=== PATIENT | female | born 1965 | race Caucasian/White ===

== ENCOUNTER 2017-03-29 01:39 | Emergency (ER) | payer OTHER ==
[2017-03-29 02:42] VITALS: BMI 27.8
--- NOTE | 2017-03-29 03:07 | PDOC ---
History of Present Illness - General History Source: Patient Exam Limitations: No Limitations - History of Present Illness Initial Comments: 03/29/17 03:14 The patient is a 51 year old female with a significant PMH of diabetes (on insulin & oral-med) who presents to the emergency department with 1 day of dizziness and blurred vision. The patient reports she is concerned that her blood sugar may be elevated. The patient denies any other associated complaints. The patient denies chest pain, shortness of breath, headache. Denies fever, chills, nausea, vomit, diarrhea and constipation. Denies dysuria, frequency, urgency and hematuria. Allergies: Latex Past surgical history: Orthopedic right elbow surgery. Social history: No reported toxic habits. PCP: Dr. Gardner <Sherman Lam - Last Filed: 03/29/17 03:14> - General History Source: Patient <JoeyJuan munoz - Last Filed: 03/29/17 19:24> - General Chief Complaint: Blood Sugar Problem Stated Complaint: BLOOD SUGAR PROBLEM Time Seen by Provider: 03/29/17 03:06 Past History <Sherman Lam - Last Filed: 03/29/17 03:14> - Past Medical History Anemia: No Asthma: No Cancer: No Cardiac Disorders: No CVA: No COPD: No CHF: No Dementia: No Diabetes: Yes GI Disorders: No Disorders: Yes (KIDNEY STONES) HTN: Yes Hypercholesterolemia: Yes Liver Disease: No Seizures: No Thyroid Disease: No - Surgical History Abdominal Surgery: No Appendectomy: No Cardiac Surgery: No Cholecystectomy: No Lung Surgery: No Neurologic Surgery: No Orthopedic Surgery: Yes (elbow sx - right arthro) - Immunization History Immunization Up to Date: Yes - Suicide/Smoking/Psychosocial Hx Smoking History: Never smoked Have you smoked in the past 12 months: No Hx Alcohol Use: No Drug/Substance Use Hx: No Substance Use Type: None Hx Substance Use Treatment: No <Juan Jensen - Last Filed: 03/29/17 19:24> - Past Medical History Allergies/Adverse Reactions: Allergies Allergy/AdvReac Type Severity Reaction Status Date / Time latex Allergy Intermediate Rash,SWELLI Verified 03/29/17 02:22 NG Home Medications: Ambulatory Orders Ergocalciferol (Vitamin D2) [Vitamin D] 50,000 unit PO WEEKLY 01/07/15 Gabapentin 600 mg PO TID 01/07/15 Insulin (Novolog) [Novolog -] 0 units SQ TID 01/07/15 Insulin Glargine,Hum.rec.anlog [Lantus Solostar PEN -] 80 units SQ HS 01/07/15 Lisinopril 10 mg PO DAILY 01/07/15 Multivitamins [Multivit ([facility] Formulary)] 1 tab PO DAILY 01/07/15 Fenofibrate Nanocrystallized [Tricor] 145 mg PO DAILY 02/29/16 Rosuvastatin Calcium 40 mg PO DAILY 03/01/16 Cyclobenzaprine HCl [Flexeril 10 mg] 10 mg PO BID PRN 03/29/17 Glimepiride - 4 mg PO ASDIR 03/29/17 Meloxicam [Mobic] 15 mg PO DAILY 03/29/17 Pramipexole Di-HCl [Mirapex] 0.125 mg PO DAILY 03/29/17 Sulfamethoxazole/Trimethoprim [Bactrim Ds -] 1 tab PO BID 03/29/17 Tizanidine HCl [Zanaflex (Nf)] 4 mg PO BID 03/29/17 Review of Systems - Review of Systems Able to Perform ROS?: Yes Comments:: 03/29/17 03:14 CONSTITUTIONAL: Absent: fever, chills, diaphoresis, generalized weakness, malaise, loss of appetite HEENT: (+) Blurred vision. Absent: rhinorrhea, nasal congestion, throat pain, throat swelling, difficulty swallowing, mouth swelling, ear pain, eye pain CARDIOVASCULAR: Absent: chest pain, syncope, palpitations, irregular heart rate, lightheadedness , peripheral edema RESPIRATORY: Absent: cough, shortness of breath, dyspnea with exertion, orthopnea, wheezing, stridor, hemoptysis GASTROINTESTINAL: Absent: abdominal pain, abdominal distension, nausea, vomiting, diarrhea, constipation, melena, hematochezia GENITOURINARY: Absent: dysuria, frequency, urgency, hesitancy, hematuria, flank pain, genital pain MUSCULOSKELETAL: Absent: myalgia, arthralgia, joint swelling SKIN: Absent: rash, itching, pallor HEMATOLOGIC/IMMUNOLOGIC: Absent: easy bleeding, easy bruising, lymphadenopathy, frequent infections ENDOCRINE: Absent: unexplained weight gain, unexplained weight loss, heat intolerance, cold intolerance NEUROLOGIC: (+) Dizziness. Absent: headache, focal weakness or paresthesias, unsteady gait, seizure, mental status changes, bladder or bowel incontinence PSYCHIATRIC: Absent: anxiety, depression, suicidal or homicidal ideation, hallucinations. <Sherman Lam - Last Filed: 03/29/17 03:14> *Physical Exam - Vital Signs Last Vital Signs Temp Pulse Resp BP Pulse Ox 98 F 92 H 18 92/63 99 03/29/17 02:10 03/29/17 02:10 03/29/17 02:10 03/29/17 02:10 03/29/17 02:10 - Physical Exam Comments: 03/29/17 03:14 GENERAL: Well developed, well nourished. Awake and alert. No acute distress. HEENT: Normocephalic, atraumatic. PERRLA, EOMI. No conjunctival pallor. Sclera are non- icteric. Moist mucous membranes. Oropharynx is clear. NECK: Supple. Full ROM. No JVD. Carotid pulses 2+ and symmetric, without bruits. No thyromegaly. No lymphadenopathy. CARDIOVASCULAR: Regular rate and rhythm. No murmurs, rubs, or gallops. Distal pulses are 2+ and symmetric. PULMONARY: No evidence of respiratory distress. Lungs clear to auscultation bilaterally. No wheezing, rales or rhonchi. ABDOMINAL: Soft. Non-tender. Non-distended. No rebound or guarding. No organomegaly. Normoactive bowel sounds. MUSCULOSKELETAL Normal range of motion at all joints. No bony deformities or tenderness. No CVA tenderness. EXTREMITIES: No cyanosis. No clubbing. No edema. No calf tenderness. SKIN: Warm and dry. Normal capillary refill. No rashes. No jaundice. NEUROLOGICAL: Alert, awake, appropriate. Cranial nerves 2-12 intact. No deficits to light touch and temperature in face, upper extremities and lower extremities. No motor deficits in the in face, upper extremities and lower extremities. Normoreflexic in the upper and lower extremities. Normal speech. Toes are downgoing bilaterally. Gait is normal without ataxia. PSYCHIATRIC: Cooperative. Good eye contact. Appropriate mood and affect. <Sherman Lam - Last Filed: 03/29/17 03:14> - Vital Signs Last Vital Signs Temp Pulse Resp BP Pulse Ox 98 F 92 H 18 92/63 99 03/29/17 02:10 03/29/17 02:10 03/29/17 02:10 03/29/17 02:10 03/29/17 02:10 <Juan Jensen - Last Filed: 03/29/17 19:24> ED Treatment Course - LABORATORY CBC & Chemistry Diagram: 03/29/17 03:00 03/29/17 05:00 <Juan Jensen - Last Filed: 03/29/17 19:24> Medical Decision Making - Medical Decision Making 03/29/17 19:24 Dr. Jensen: The scribe's documentation has been prepared under my direction and personally reviewed by me in its entirery. I confirm that the note above accurately reflects all work, treatment, procedures, and medical decision making performed by me. <Juan Jensen - Last Filed: 03/29/17 19:24> *DC/Admit/Observation/Transfer - Attestations Scribe Attestion: 03/29/17 03:15 Documentation prepared by Sherman Lam, acting as medical surgical tech for Juan Jensen DO. <Sherman Lam - Last Filed: 03/29/17 03:14> - Discharge Dispostion Admit: No <Juan Jensen - Last Filed: 03/29/17 19:24> Diagnosis at time of Disposition: Hyperglycemia - Discharge Dispostion Disposition: HOME Condition at time of disposition: Stable - Referrals Referrals: Nawaf Gardner [Primary Care Provider] - - Patient Instructions Printed Discharge Instructions: DI for Hyperglycemia -- Adult Additional Instructions: Follow up with your primary care doctor this week. You must have your blood sugar medications adjusted. If you continue to have poorly controlled blood sugar, you may suffer serious illness, disability, or even . If you experience persistent elevated sugars, abdominal pain, vomiting, or any other concerning symptoms, return to the ER immediately.
[2017-03-29] MEDS ORDERED: SODIUM CHLORIDE 1,000 ML IV STA (03:08)
[2017-03-29 03:18] LABS: BASOPHIL 0.8 % (0-2.0); EOSINOPHIL 1.6 % (0-4.5); MCH 29.2 pg (25.7-33.7); MCHC 33.9 g/dl (32.0-36.0); MEAN CELL VOLUME 86.1 fl (80-96); NEUTROPHILS 49.4 % (42.8-82.8); PLATELET COUNT 189 K/MM3 (134-434); RDW 12.6 % (11.6-15.6); WHITE BLOOD COUNT 5.5 K/mm3 (4.0-10.0)
[2017-03-29 03:31] LABS: INR 0.99 (0.82-1.09); PROTHROMBIN TIME (PATIENT) 11.2 SEC (9.98-11.88)
[2017-03-29 03:52] LABS: ACETONE SERUM NEGATIVE (NEGATIVE)
[2017-03-29 03:56] LABS: ALBUMIN 3.5 g/dl (3.4-5.0); ANION GAP 7 (8-16); BILIRUBIN,TOTAL 0.3 mg/dL (0.2-1.0); CALCIUM 8.9 mg/dL (8.5-10.1); CO2 27 mmol/L (21-32); CREATININE 1.2 mg/dL (0.55-1.02); SGPT/ALT 30 U/L (12-78); TOT PROT 6.7 g/dl (6.4-8.2)
[2017-03-29 03:59] LABS: ALK PHOS 114 U/L (45-117); CPK 91 IU/L (26-192); TROPONIN I < 0.02 ng/ml (0.00-0.05)
[2017-03-29 04:02] LABS: MAGNESIUM 1.6 mg/dL (1.8-2.4); SGOT/AST 21 U/L (15-37)
[2017-03-29 04:03] LABS: GLUCOSE,RANDOM 556 mg/dL (74-106)
[2017-03-29 04:48] LABS: URINE APPEARANCE SLCLOUDY; URINE BILIRUBIN NEGATIVE (NEGATIVE); URINE BLOOD NEGATIVE (NEGATIVE); URINE COLOR STRAW; URINE GLUCOSE (UA) 3+ (NEGATIVE); URINE KETONE NEGATIVE (NEGATIVE); URINE NITRITE NEGATIVE (NEGATIVE); URINE PROTEIN NEGATIVE (NEGATIVE); URINE UROBILINOGEN NEGATIVE mg/dL (0.2-1.0)
[2017-03-29 05:40] LABS: ANION GAP 8 (8-16); CALCIUM 8.6 mg/dL (8.5-10.1); CO2 26 mmol/L (21-32)
[2017-03-29 05:47] LABS: GLUCOSE,RANDOM 446 mg/dL (74-106)
[2017-03-29] MEDS ORDERED: INSULIN REGULAR HUMAN 100 UNITS/ML *VIAL IVPUSH ONE (06:14)
[2017-03-29] MEDS ORDERED: INSULIN REGULAR HUMAN 100 UNITS/ML *VIAL ONE (06:20)
[2017-03-29 07:40] VITALS: BP 101/60; PULSE 83; TEMP 98.6
--- NOTE | 2017-03-29 09:04 | PDOC ---
*Physical Exam - Vital Signs Last Vital Signs Temp Pulse Resp BP Pulse Ox 98.6 F 83 16 101/60 98 03/29/17 07:39 03/29/17 07:39 03/29/17 07:39 03/29/17 07:39 03/29/17 07:39 ED Treatment Course - LABORATORY CBC & Chemistry Diagram: 03/29/17 03:00 03/29/17 05:00 - ADDITIONAL ORDERS Additional order review: Laboratory Results 03/29/17 03/29/17 03/29/17 05:00 04:38 03:00 PT with INR INR Sodium 131 L 127 L Potassium 4.5 5.2 H D Chloride 97 L 93 L Carbon Dioxide 26 27 Anion Gap 8 7 L BUN 17 19 H D Creatinine 1.0 1.2 H D Creat Clearance w eGFR 46.99 Random Glucose 446 H* 556 H* D Calcium 8.6 8.9 Magnesium 1.6 L Total Bilirubin 0.3 D AST 21 D ALT 30 Alkaline Phosphatase 114 Creatine Kinase 91 Troponin I < 0.02 Total Protein 6.7 Albumin 3.5 Lipase 484 H Urine Color Straw Urine Appearance Slcloudy Urine pH 5.0 Ur Specific [place] 1.026 Urine Protein Negative Urine Glucose (UA) 3+ H Urine Ketones Negative Urine Blood Negative Urine Nitrite Negative Urine Bilirubin Negative Urine Urobilinogen Negative Acetone, Qual Negative L 03/29/17 03:00 PT with INR 11.20 INR 0.99 Sodium Potassium Chloride Carbon Dioxide Anion Gap BUN Creatinine Creat Clearance w eGFR Random Glucose Calcium Magnesium Total Bilirubin AST ALT Alkaline Phosphatase Creatine Kinase Troponin I Total Protein Albumin Lipase Urine Color Urine Appearance Urine pH Ur Specific [place] Urine Protein Urine Glucose (UA) Urine Ketones Urine Blood Urine Nitrite Urine Bilirubin Urine Urobilinogen Acetone, Qual 03/29/17 03:00 RBC 4.37 MCV 86.1 MCHC 33.9 RDW 12.6 MPV 11.0 Neutrophils % 49.4 Lymphocytes % 41.4 H Monocytes % 6.8 Eosinophils % 1.6 D Basophils % 0.8 - Medications Given in the ED: ED Medications Discontinued Medications Generic Name Dose Route Start Last Admin Trade Name Freq PRN Reason Stop Dose Admin Sodium Chloride 1,000 mls @ 1,000 mls/hr 03/29/17 03:08 03/29/17 03:00 Normal Saline - IV 03/29/17 04:07 1,000 mls/hr ASDIR STA Administration Insulin Human Regular 6 units 03/29/17 06:14 03/29/17 06:23 Novolin R Vial *For Ivpush Or Iv Drip Only* IVPUSH 03/29/17 06:15 6 units ONCE ONE Administration Medical Decision Making - Medical Decision Making 03/29/17 08:59 Sign out taken from Dr. Jensne at 7AM. 51 F with IDDM presenting with elevated blood sugar. Pt reports compliance with meds. Was given IVF and insulin in ER with improvement in sugar to <200. Pt also with elevated lipase. CTAP was normal. Pt denies abdominal pain. Abdominal exam is nontender. Pt has f/u with PMD next week. Will need to adjust her antihyperglycemics and insulin. Pt clinically well appearing, asymptomatic, with normal vitals and improved fingerstick. Stable for DC. *DC/Admit/Observation/Transfer Diagnosis at time of Disposition: Hyperglycemia - Discharge Dispostion Disposition: HOME - Referrals Referrals: Nawaf Gardner [Primary Care Provider] - - Patient Instructions Printed Discharge Instructions: DI for Hyperglycemia -- Adult Additional Instructions: Follow up with your primary care doctor this week. You must have your blood sugar medications adjusted. If you continue to have poorly controlled blood sugar, you may suffer serious illness, disability, or even . If you experience persistent elevated sugars, abdominal pain, vomiting, or any other concerning symptoms, return to the ER immediately. - Post Discharge Activity - Attestations Physician Attestion: 03/29/17 09:03 I, Dr. Marquise Hayes MD, attest that this document has been prepared under my direction and personally reviewed by me in its entirety. I further attest, that it accurately reflects all work, treatment, procedures and medical decision -making performed by me.
[2017-03-29 10:46] LABS: URINE BACTERIA FEW /hpf (NEGATIVE); URINE LEUK ESTERASE TRACE (NEGATIVE); URINE RBC 0-3 /hpf (0-3); URINE WBC 0-3 /hpf (3-5)
== END 2017-03-29 10:38 | disposition home or self-care (01) ==
LOC: JER 01:39
PROC: 3E033VG Introduction of Insulin into Peripheral Vein, Percutaneous Approach (ICD-10-PCS; principal; 2017-03-29)
DX: E11.65 Type 2 diabetes mellitus with hyperglycemia (principal); Z79.4 Long term (current) use of insulin; Z79.84 Long term (current) use of oral hypoglycemic drugs; I10 Essential (primary) hypertension; E78.00 Pure hypercholesterolemia, unspecified; Z87.442 Personal history of urinary calculi
CPT/HCPCS: 36415; 74177-TC; 80048; 80053; 81003; 81015; 82009; 82550; 83690; 83735; 84484; 85025; 85610; 99285-25

== ENCOUNTER 2018-06-21 14:21 | Emergency (ER) | payer OTHER ==
[2018-06-21 16:11] VITALS: BMI 27.6
--- NOTE | 2018-06-21 16:11 | PDOC ---
History of Present Illness - General Stated Complaint: PAIN Time Seen by Provider: 06/21/18 15:56 History Source: Patient - History of Present Illness Timing/Duration: other Past History - Past Medical History Allergies/Adverse Reactions: Allergies Allergy/AdvReac Type Severity Reaction Status Date / Time latex Allergy Intermediate RashMIKE Verified 03/29/17 02:22 NG Home Medications: Ambulatory Orders Ergocalciferol (Vitamin D2) [Vitamin D] 50,000 unit PO WEEKLY 01/07/15 Gabapentin 600 mg PO TID 01/07/15 Insulin (Novolog) [Novolog -] 0 units SQ TID 01/07/15 Insulin Glargine,Hum.rec.anlog [Lantus Solostar PEN -] 80 units SQ HS 01/07/15 Lisinopril 10 mg PO DAILY 01/07/15 Multivitamins [Multivit ([facility] Formul[facility])] 1 tab PO DAILY 01/07/15 Fenofibrate Nanocrystallized [Tricor] 145 mg PO DAILY 02/29/16 Rosuvastatin Calcium 40 mg PO DAILY 03/01/16 Cyclobenzaprine HCl [Flexeril 10 mg] 10 mg PO BID PRN 03/29/17 Glimepiride - 4 mg PO ASDIR 03/29/17 Meloxicam [Mobic] 15 mg PO DAILY 03/29/17 Pramipexole Di-HCl [Mirapex] 0.125 mg PO DAILY 03/29/17 Sulfamethoxazole/Trimethoprim [Bactrim Ds -] 1 tab PO BID 03/29/17 Tizanidine HCl [Zanaflex (Nf)] 4 mg PO BID 03/29/17 Ondansetron HCl [Zofran] 4 mg PO Q8H #6 tablet 06/21/18 Anemia: No Asthma: No Cancer: No Cardiac Disorders: No CVA: No COPD: No CHF: No Dementia: No Diabetes: Yes GI Disorders: No Disorders: Yes (KIDNEY STONES) HTN: Yes Hypercholesterolemia: Yes Liver Disease: No Seizures: No Thyroid Disease: No - Surgical History Abdominal Surgery: No Appendectomy: No Cardiac Surgery: No Cholecystectomy: No Lung Surgery: No Neurologic Surgery: No Orthopedic Surgery: Yes (elbow sx - right arthro) - Immunization History Immunization Up to Date: Yes - Suicide/Smoking/Psychosocial Hx Smoking History: Never smoked Have you smoked in the past 12 months: No Hx Alcohol Use: No Drug/Substance Use Hx: No Substance Use Type: None Hx Substance Use Treatment: No Review of Systems - Review of Systems Constitutional: No: Chills, Fever ABD/GI: Yes: Diarrhea, Nausea, Vomiting. No: Poor Fluid Intake : No: Dysuria *Physical Exam - Physical Exam General Appearance: Yes: Appropriately Dressed. No: Apparent Distress HEENT: positive: Normal Voice Neck: positive: Supple Respiratory/Chest: negative: Respiratory Distress Gastrointestinal/Abdominal: positive: Soft. negative: Tender Integumentary: positive: Dry, Warm Neurologic: positive: Fully Oriented, Alert, Normal Mood/Affect ED Treatment Course - LABORATORY CBC & Chemistry Diagram: 06/21/18 16:28 06/21/18 16:28 Medical Decision Making - Medical Decision Making 06/21/18 16:08 53 yo F, h/o HLD, HTN, IDDM, here w/ n/v. Pt states since last night, has had ~4 -5 e/o NB, NB vomitus w/ ~10 e/o NB, watery diarrhea. No abd pain, body aches, f /c. No sick contact. recent travel, unusual food or abx use. Feels dizzy now See exam Possible gastroenteritis No RF for serious dysentery Stable and well mervat w/ benign abd -IVF -zofran -labs -reassess 06/21/18 19:10 Signed out to ER resident pending chemistry and reassessment *DC/Admit/Observation/Transfer Diagnosis at time of Disposition: Diarrhea Qualifiers: Diarrhea type: unspecified type Qualified Code(s): R19.7 - Diarrhea, unspecified Nausea and vomiting Qualifiers: Vomiting type: unspecified Vomiting Intractability: non-intractable Qualified Code(s): R11.2 - Nausea with vomiting, unspecified - Discharge Dispostion Condition at time of disposition: Improved - Prescriptions Prescriptions: Ondansetron HCl [Zofran] 4 mg PO Q8H #6 tablet - Referrals Referrals: Antonia Kirkland [Primary Care Provider] - - Patient Instructions Printed Discharge Instructions: Viral Gastroenteritis Additional Instructions: Lo ms probable es que tenga mario gastroenteritis viral que seguir zimmer curso hasta que l mejore. [place] y [place] muchos lquidos para prevenir la deshidratacin. [place] dara segn sea necesario para las nuseas. Si los sntomas empeoran, vuelva a la robert de emergencias; de lo contrario, consulte zimmer PMD segn sea necesario - Post Discharge Activity
[2018-06-21] MEDS ORDERED: SODIUM CHLORIDE 1,000 ML IV STA (16:12)
[2018-06-21] MEDS ORDERED: ONDANSETRON 4 MG/2 ML VIAL IVPUSH ONE (16:12)
[2018-06-21] MEDS ORDERED: ONDANSETRON 4 MG/2 ML VIAL ONE (16:36)
[2018-06-21 16:48] LABS: URINE APPEARANCE CLEAR; URINE BILIRUBIN NEGATIVE (<2.0 mg/dL); URINE COLOR LTYELLOW; URINE GLUCOSE (UA) 3+ (NEGATIVE); URINE KETONE 1+ (NEGATIVE); URINE LEUK ESTERASE NEGATIVE (NEGATIVE); URINE NITRITE NEGATIVE (NEGATIVE); URINE PROTEIN NEGATIVE (NEGATIVE); URINE UROBILINOGEN NEGATIVE mg/dL (0.2-1.0)
[2018-06-21 17:54] LABS: BASO % 0.5 % (0-2.0); EOS % 0.1 % (0-4.5); HEMATOCRIT 41.9 % (32.4-45.2); MCH 31.7 pg (25.7-33.7); MCHC 35.8 g/dl (32.0-36.0); MEAN CELL VOLUME 88.6 fl (80-96); MEAN PLT VOLUME 11.4 fl (7.5-11.1); MONO % 3.2 % (3.8-10.2); NEUT % 75.2 % (42.8-82.8); PLATELET COUNT 211 K/MM3 (134-434); RBC 4.73 M/mm3 (3.60-5.2); RDW 12.5 % (11.6-15.6); WHITE BLOOD COUNT 8.6 K/mm3 (4.0-10.0)
--- NOTE | 2018-06-21 19:34 | PDOC ---
*Physical Exam - Vital Signs Last Vital Signs Temp Pulse Resp BP Pulse Ox 97.8 F 90 17 124/77 98 06/21/18 16:07 06/21/18 16:07 06/21/18 16:07 06/21/18 16:07 06/21/18 16:07 - Physical Exam Comments: 06/21/18 19:33 Received sign out from [facility] [place] ED Treatment Course - LABORATORY CBC & Chemistry Diagram: 06/21/18 16:28 06/21/18 16:28 - ADDITIONAL ORDERS Additional order review: Laboratory Results 06/21/18 06/21/18 16:32 16:28 Lipase Cancelled Urine Color Ltyellow Urine Appearance Clear Urine pH 8.0 D Ur Specific [place] 1.031 Urine Protein Negative Urine Glucose (UA) 3+ H D Urine Ketones 1+ H Urine Blood Negative Urine Nitrite Negative Urine Bilirubin Negative Urine Urobilinogen Negative Ur Leukocyte Esterase Negative 06/21/18 16:28 RBC 4.73 MCV 88.6 MCHC 35.8 RDW 12.5 MPV 11.4 H Neutrophils % 75.2 D Lymphocytes % 21.0 D Monocytes % 3.2 L Eosinophils % 0.1 D Basophils % 0.5 - Medications Given in the ED: ED Medications Discontinued Medications Generic Name Dose Route Start Last Admin Trade Name Freq PRN Reason Stop Dose Admin Sodium Chloride 1,000 mls @ 1,000 mls/hr 06/21/18 16:12 06/21/18 16:43 Normal Saline - IV 06/21/18 17:11 1,000 mls/hr ASDIR STA Administration Ondansetron HCl 4 mg 06/21/18 16:12 06/21/18 16:43 Zofran Injection IVPUSH 06/21/18 16:13 4 mg ONCE ONE Administration Medical Decision Making - Medical Decision Making Patient was reassessed. She had resolution of abdominal symptoms and no diarrhea in the department. the patient was able to tolerate PO solids and liquids. the patient was discharged without complications and able to ambulate on her own volition. labs were within normal limits except for an elevated glucose level. Advised her to see her PMD within 3 days for follow up care and management to evaluate anti-glycemic regiment. I discussed the physical exam findings, ancillary test results, and final diagnoses with the patient. I answered all of the patients questions to their satisfaction. The patient was satisfied with the care received and felt comfortable with the discussed discharge and treatment plan and accepted it. They agreed to follow up with their primary medical physical physician within 24 -72 hours after discharge for follow up care and management. Dispo: Discharge *DC/Admit/Observation/Transfer Diagnosis at time of Disposition: Diarrhea Qualifiers: Diarrhea type: unspecified type Qualified Code(s): R19.7 - Diarrhea, unspecified Nausea and vomiting Qualifiers: Vomiting type: unspecified Vomiting Intractability: non-intractable Qualified Code(s): R11.2 - Nausea with vomiting, unspecified - Discharge Dispostion Disposition: HOME Condition at time of disposition: Improved Decision to Admit order: No - Prescriptions Prescriptions: Ondansetron HCl [Zofran] 4 mg PO Q8H #6 tablet - Referrals Referrals: Antonia Kirkland [Primary Care Provider] - - Patient Instructions Printed Discharge Instructions: Viral Gastroenteritis Additional Instructions: Lo ms probable es que tenga mario gastroenteritis viral que seguir zimmer curso hasta que l mejore. [place] muchos lquidos para prevenir la deshidratacin. [place] dara segn sea necesario para las nuseas. Si los sntomas empeoran, vuelva a la robert de emergencias; de lo contrario, consulte zimmer PMD segn sea necesario - Post Discharge Activity
[2018-06-21 20:08] LABS: ALBUMIN 4.2 g/dl (3.4-5.0); ALK PHOS 100 U/L (45-117); ANION GAP 10 MMOL/L (8-16); BILIRUBIN,TOTAL 0.4 mg/dL (0.2-1); BLOOD UREA NITROGEN 9 mg/dL (7-18); CALCIUM 9.5 mg/dL (8.5-10.1); CHLORIDE 99 mmol/L (98-107); CO2 28 mmol/L (21-32); CREATININE 0.8 mg/dL (0.55-1.3); LIPASE 221 U/L (73-393); POTASSIUM 4.3 mmol/L (3.5-5.1); SGOT/AST 18 U/L (15-37); SGPT/ALT 35 U/L (13-61); SODIUM 137 mmol/L (136-145); TOT PROT 7.5 g/dl (6.4-8.2)
[2018-06-21 20:11] LABS: GLUCOSE,RANDOM 303 mg/dL (74-106)
[2018-06-21 20:59] VITALS: BP 133/82; PULSE 88; TEMP 98
== END 2018-06-21 21:51 | disposition home or self-care (01) ==
LOC: JER 14:21
PROC: 3E033GC Introduction of Other Therapeutic Substance into Peripheral Vein, Percutaneous Approach (ICD-10-PCS; principal; 2018-06-21)
DX: A08.4 Viral intestinal infection, unspecified (principal); B97.89 Other viral agents as the cause of diseases classified elsewhere; I10 Essential (primary) hypertension; E78.00 Pure hypercholesterolemia, unspecified; E11.9 Type 2 diabetes mellitus without complications; Z79.4 Long term (current) use of insulin; Z87.442 Personal history of urinary calculi
CPT/HCPCS: 36415; 80053; 81003; 83690; 85025; 87804; 96374; 99282-25; J7030

== ENCOUNTER 2018-08-29 10:15 | Observation (INO) | payer OTHER ==
[2018-08-29 10:39] VITALS: BMI 27.3
--- NOTE | 2018-08-29 11:25 | PDOC ---
History of Present Illness - General Chief Complaint: Lightheaded Stated Complaint: NECK / BODY PAIN Time Seen by Provider: 08/29/18 10:52 History Source: Patient, Pharmacy Associate Used, Old Records Exam Limitations: Language Barrier - History of Present Illness Initial Comments: HPI: 53 y/o female presenting to [facility] ER with three complaints. States she developed left sided chest pain while at the gym this morning. Denies radiation to arms, neck or back. No change with inspiration or exertion. States she felt a little short of breath yesterday but not today. Complaining of episodes of dizziness for the past four days. Each lasts a few minutes in duration. Are worse when moving from seated to standing position. No change with opening or closing eyes. No change with turning head to right or left. States it feels as though the room is spinning. Denies h/o of similar. Denies syncope but states she tripped last night while walking to the bathroom. Not feeling dizzy at time of interview. Complaining of posterior neck pain for the past week. Pain is worse when turning head to left side. Has not tried any over the counter medication. Pt states all symptoms have not prevented her from exercising at the gym every day this week. Pt is mostly Nigerian speaking. [employer] telephone delivery mgr used for translation. PCP: Stopped following with Dr. Kirkland Websphere Architect: Dr. Marquez Medical Hx: - HTN - Diabetic, manages with insulin and metformin, states BGL was >300 - HLD Past History - Past Medical History Allergies/Adverse Reactions: Allergies Allergy/AdvReac Type Severity Reaction Status Date / Time latex Allergy Intermediate Rash,SWELLI Verified 03/29/17 02:22 NG Home Medications: Ambulatory Orders Ergocalciferol (Vitamin D2) [Vitamin D] 50,000 unit PO WEEKLY 01/07/15 Gabapentin 600 mg PO TID 01/07/15 Insulin (Novolog) [Novolog -] 0 units SQ TID 01/07/15 Insulin Glargine,Hum.rec.anlog [Lantus Solostar PEN -] 80 units SQ HS 01/07/15 Lisinopril 10 mg PO DAILY 01/07/15 Multivitamins [Multivit ([facility] Formulary)] 1 tab PO DAILY 01/07/15 Fenofibrate Nanocrystallized [Tricor] 145 mg PO DAILY 02/29/16 Rosuvastatin Calcium 40 mg PO DAILY 03/01/16 Cyclobenzaprine HCl [Flexeril 10 mg] 10 mg PO BID PRN 03/29/17 Glimepiride - 4 mg PO ASDIR 03/29/17 Meloxicam [Mobic] 15 mg PO DAILY 03/29/17 Pramipexole Di-HCl [Mirapex] 0.125 mg PO DAILY 03/29/17 Sulfamethoxazole/Trimethoprim [Bactrim Ds -] 1 tab PO BID 03/29/17 Tizanidine HCl [Zanaflex (Nf)] 4 mg PO BID 03/29/17 Ondansetron HCl [Zofran] 4 mg PO Q8H #6 tablet 06/21/18 Anemia: No Asthma: No Cancer: No Cardiac Disorders: No CVA: No COPD: No CHF: No Dementia: No Diabetes: Yes GI Disorders: No Disorders: Yes (KIDNEY STONES) HTN: Yes Hypercholesterolemia: Yes Liver Disease: No Seizures: No Thyroid Disease: No - Surgical History Abdominal Surgery: No Appendectomy: No Cardiac Surgery: No Cholecystectomy: No Lung Surgery: No Neurologic Surgery: No Orthopedic Surgery: Yes (elbow sx - right arthro) - Immunization History Immunization Up to Date: Yes - Suicide/Smoking/Psychosocial Hx Smoking History: Never smoked Have you smoked in the past 12 months: No Information on smoking cessation initiated: No Hx Alcohol Use: No Drug/Substance Use Hx: No Substance Use Type: None Hx Substance Use Treatment: No Review of Systems - Review of Systems Able to Perform ROS?: Yes Comments:: In addition to that documented in the HPI above, the additional ROS was obtained : Constitutional: Denies fevers or chills Head: Denies vision changes or change in hearing ENMT: Denies sore throat CV: Per HPI Resp: Denies acute SOB GI: Denies vomiting or diarrhea : Denies painful urination, increased urinary frequency, or hematuria MSK: Denies recent trauma Skin: Denies new rashes Neuro: Denies new numbness or tingling or weakness Endocrine: Denies polyuria Heme: Denies bleeding or bruising *Physical Exam - Vital Signs Last Vital Signs Temp Pulse Resp BP Pulse Ox 98.1 F 84 16 142/88 96 08/29/18 10:36 08/29/18 10:36 08/29/18 10:36 08/29/18 10:36 08/29/18 10:36 - Physical Exam Comments: Constitutional: Well-developed, well-nourished female in no acute distress or obvious discomfort. Found semi-fowlers in hospital bed. Alert and oriented x4. Answered all questions appropriately and completely. Speech was non-labored, non -pressured. Head: Normocephalic. No obvious external signs of trauma. Eyes: Pupils 4mm and PERRL bilaterally. EOMI. No vertical or horizontal nystagmus. Sclerae white. Conjunctiva moist and not injected. Ears: Hearing grossly intact. Nose: No nasal discharge. Throat: Oral cavity and pharynx normal. No inflammation, swelling, exudate, or lesions. Teeth and gingiva in good general condition. Uvula midline. No tongue deviation. Neck: Supple, trachea is midline. Diffuse tenderness to right side of neck without obvious bony deformities or overlying skin lesions. Cardiovascular / Chest: Regular rate and regular rhythm. No murmur, rubs, clicks, or gallops. Peripheral pulses: radial pulses full. No pretibial edema. Point tenderness to lower left sternal border; unchanged with left arm movement. Respiratory: Breathing unlabored. Equal chest rise and fall. Clear to auscultation bilaterally. No stridor, no wheezing, no rhonchi. Gastrointestinal: abdomen is soft, non-tender, non-distended. Neuro: Alert and oriented. Moving all four extremities spontaneously. No focal deficits. Cranial nerves intact. Sensation to all four extremities intact. Upper and lower extremities: proximal and distal strength 5/5. Community Health Nursing Director strength 5/ 5 - equal and symmetric. Plantar flexion and dorsiflexion 5/5. No nuchal rigidity. Intact rapid alternating movements and heel to saucedo. Normal test of skew. Gait: walked on heels. Skin: Warm, dry, and intact. No bruising, rashes, or other lesions. Psych: Affect: appropriate. Mood: normal. Heart Score/ECG Review - History History: Slightly suspicious - Electrocardiogram EKG: Non specific repolarization disturbance - Age Age: 45-65 - Risk Factors Risk Factors Heart Score: Yes Hx Hypercholesterolemia, Yes Hx Hypertension, Yes Hx Diabetes Based on the list above the patient has:: >/=3 risk factors or Hx atherosclerotic disease - Troponin Troponin: </= normal limit - Score Heart Score - Total: 4 ED Treatment Course - LABORATORY CBC & Chemistry Diagram: 08/29/18 12:07 08/29/18 11:26 Medical Decision Making - Medical Decision Making *Reviewed vital signs, nursing notes, and prior visit documentation (if available). 53 y/o female presenting for left sided nonradiating, nonpleuritic, reproducible chest pain x1 day, intermittent dizziness x4 days, and 1 week of posterior neck pain. Dizziness and neck pain did not prevent pt from normal activities. Afebrile. Vitals unremarkable for hypotension or tachycardia. Physical exam as described above. Gait abnormality reportedly normal per pt; suspect secondary to diabetic neuropathy. Suspect likely MSK chest pain given highly reproducible nature, however pt has risk factors including HTN, DM, and HLD. Suspect likely peripheral vertiginous BPPV given brief nature of episodes without acute findings on neurologic exam. Initial EKG revealed inverted T wave in lead III. No ST segment changes. No previous EKGs available for comparison. Initial troponin not elevated. CBC unremarkable for anemia. CMP unremarkable for significant electrolyte derangement. CXR unremarkable for acute cardiopulmonary findings or bony deformities. Will repeat troponin and EKG at three hours. Given heart score of 4 , will admit pt on observation status for DILSHAD. In person consultation with resident Dr. Zavala. Verbally appraised of the pt s HPI, ED course, and current plan of management. Will admit pt to telemetry on observational status for attending Dr. Hernández. Repeat EKG unchanged from first. Repeat troponin not elevated. *DC/Admit/Observation/Transfer Diagnosis at time of Disposition: Left-sided chest pain, Posterior neck pain, Dizziness, nonspecific, Hyperglycemia due to type 1 diabetes mellitus, Hyperglycemia, Nonspecific ST-T wave electrocardiographic changes - Discharge Dispostion Condition at time of disposition: Stable Decision to Admit order: Yes - Referrals - Patient Instructions - Post Discharge Activity
[2018-08-29] MEDS ORDERED: ACETAMINOPHEN 500 MG TABLET (FP) PO ONE (11:31)
--- NOTE | 2018-08-29 12:07 | PDOC ---
Attending Attestation - Resident Resident Name: FungSal - ED Attending Attestation I have performed the following: I have examined & evaluated the patient, The case was reviewed & discussed with the resident, I agree w/resident's findings & plan - HPI HPI: 08/29/18 13:36 53 year old female, with past medical history of hyperlipidemia, hypertension and IDDM, presents with 4 days of lightheadedness and left sided chest pain beginning this morning, worse with movement and neck turning. Right sided Neck and upper back/shoulder pain x 1 week, worse with movement, laterally located. Denies trauma. No infectious sx. No respiratory sx or sob. - Physicial Exam PE: 08/29/18 13:36 NAD, well appearing, MMM, nl conjunctiva, anicteric; neck supple. FROM, +right lateral neck/trapezius TTP, 5/5 shoulder shrug. lungs clear, RRR, no murmurs. midsternal/left sided anterior chest wall TTP, no crepitus. abdomen soft nontender. ADAMS x4, no focal neuro deficits. No peripheral edema. normal color for ethnicity, WWP. no calf tenderness or swelling. - Medical Decision Making 08/29/18 13:37 See HPI for details Vital signs reviewed, wnl. DDx chest pain: ACS, coronary vasospasm, NSTEMI, arrhythmia, unstable angina, PE , dissection, PUD, esophageal spasm, GERD, gastritis, costochondritis, pneumonia , pleurisy, pericarditis/myocarditis. dehydration, electrolyte/metabolic derangements. Considered but clinically doubt based on HPI and PE: Prior notes reviewed, including admissions, discharges and consultations. laboratory results and imaging reviewed, basic labs and lytes wnl. CXR_ no acute chest pathology, no e/o infection, normal silhouette. no effusion/ edema. Cardiac panel_neg trop x1. serial trop/EKG and tele EKG normal sinus rhythm at 78 bpm, no interval abnormalities, narrow QRS, ST and T wave segments and morphology normal. Nonspecific T wave abnormalities in III with TWI, flattening in AVF, otherwise no prior. ED course - analgesia, topical lidoderm patch for cervical lateral spasm/pain. - no focal neuro deficits to suggest acute neuro pathology or CVA/cervical or vascular dissection. - chest pain reproducible in nature, however atypical symptoms with comorbidities, female gender and cp with heart score 4, denoting moderate risk of MACE at 4-6 weeks, at 14-16% Admit for telemetry, r/o ACS, chest pain /dizziness eval, serial trops and EKG, tele monitor admit to hospitalist service, observation status. 08/29/18 15:07 08/29/18 15:08 Heart Score/ECG Review - History History: Slightly suspicious - Electrocardiogram EKG: Non specific repolarization disturbance - Age Age: 45-65 - Risk Factors Risk Factors Heart Score: Yes Hx Hypercholesterolemia, Yes Hx Hypertension, Yes Hx Diabetes Based on the list above the patient has:: >/=3 risk factors or Hx atherosclerotic disease - Troponin Troponin: </= normal limit - Score Heart Score - Total: 4 #1 ECG reviewed & interpreted by me at: 10:35 General ECG Interpretation: Sinus Rhythm, Normal Rate Compared to previous ECG there are: Previous ECG unavail 08/29/18 13:42 EKG normal sinus rhythm at 78 bpm, no interval abnormalities, narrow QRS, ST and T wave segments and morphology normal. Nonspecific T wave abnormalities in III with TWI, flattening in AVF, otherwise no prior.
[2018-08-29] MEDS ORDERED: ACETAMINOPHEN 325 MG TABLET (FP) ONE (12:15)
[2018-08-29 12:20] LABS: HEMATOCRIT 40.8 % (32.4-45.2); HEMOGLOBIN 13.9 GM/dL (10.7-15.3); LYMPH % 46.5 % (8-40); MCH 30.1 pg (25.7-33.7); MEAN CELL VOLUME 88.4 fl (80-96); MEAN PLT VOLUME 10.9 fl (7.5-11.1); MONO % 5.9 % (3.8-10.2); NEUT % 45.6 % (42.8-82.8); PLATELET COUNT 214 K/MM3 (134-434); RBC 4.61 M/mm3 (3.60-5.2); RDW 12.8 % (11.6-15.6); WHITE BLOOD COUNT 5.3 K/mm3 (4.0-10.0)
[2018-08-29 12:49] LABS: ALBUMIN 3.8 g/dl (3.4-5.0); ALK PHOS 76 U/L (45-117); ANION GAP 7 MMOL/L (8-16); BILIRUBIN,TOTAL 0.3 mg/dL (0.2-1); BLOOD UREA NITROGEN 19 mg/dL (7-18); CALCIUM 9.7 mg/dL (8.5-10.1); CHLORIDE 99 mmol/L (98-107); CO2 28 mmol/L (21-32); CREATININE 0.8 mg/dL (0.55-1.3); GLUCOSE,RANDOM 178 mg/dL (74-106); POTASSIUM 4.7 mmol/L (3.5-5.1); SGOT/AST 19 U/L (15-37); SGPT/ALT 23 U/L (13-61); SODIUM 134 mmol/L (136-145)
[2018-08-29] MEDS ORDERED: KETOROLAC TROMETHAMINE 15 MG/ML VIAL IVPUSH ONE (13:31)
[2018-08-29] MEDS ORDERED: LIDOCAINE 5% TOPICAL PATCH TP ONE (13:31)
[2018-08-29] MEDS ORDERED: SODIUM CHLORIDE 0.9% 500 ML INFUS.BAG IV ONE (13:32)
[2018-08-29] MEDS ORDERED: ASPIRIN 81 MG CHEWABLE TABLETS PO ONE (14:13)
[2018-08-29] MEDS ORDERED: ASPIRIN 81 MG CHEWABLE TABLETS ONE (15:06)
[2018-08-29] MEDS ORDERED: LIDOCAINE 5% TOPICAL PATCH ONE (15:07)
[2018-08-29] MEDS ORDERED: KETOROLAC TROMETHAMINE 15 MG/ML VIAL ONE (15:07)
[2018-08-29] MEDS ORDERED: NITROGLYCERIN SUBLINGUAL 1/150 0.4 MG TAB SL ONE (15:16)
[2018-08-29] MEDS ORDERED: NITROGLYCERIN SUBLINGUAL 1/150 0.4 MG TAB SL PRN (15:30)
--- NOTE | 2018-08-29 15:51 | HP ---
CHIEF COMPLAINT: Chest pain, dizziness. PCP: none HISTORY OF PRESENT ILLNESS: The patient is a 53 yo f w/ PMH HTN, DM who comes into the ED c/o a 3 day history of chest pain and dizziness. The patient states that 3 days ago, she began to experience several discrete episodes of dizziness. each episode lasted approx. 2 mins before resolving spontaneously. The patient endorses feeling this dizziness when going from laying to sitting or sitting to standing. Patient denies syncope or near syncope. She associates thia dizziness with chest pain. She states that the chest pain is located on the lest side of her chest without radiation or modifying factors. The patient states that she has never had this chest pain previously and that is is different than the muscular pain she felt from exercising. This chest pain got worse today while she was at the gym, causing her to seek medical attention. The patient also c/o neck pain which has been present for more than a week. ER course was notable for: (1) ASA 325 (2) lidocaine patch (3) toradol injection Recent Travel: none PAST MEDICAL HISTORY: see hpi PAST SURGICAL HISTORY: spinal surgery for arthritis Social History: Smoking: denies Alcohol: denies Drugs: denies Family History: non-contributory Allergies latex Allergy (Intermediate, Verified 03/29/17 02:22) Rash,SWELLING HOME MEDICATIONS: Home Medications Medication Instructions Recorded Ergocalciferol (Vitamin D2) 50,000 unit PO WEEKLY 01/07/15 [Vitamin D] Gabapentin 600 mg PO TID 01/07/15 Insulin (Novolog) [Novolog -] 0 units SQ TID 01/07/15 Insulin Glargine,Hum.rec.anlog 80 units SQ HS 01/07/15 [Lantus Solostar PEN -] Lisinopril 10 mg PO DAILY 01/07/15 Multivitamins [Multivit ([facility] 1 tab PO DAILY 01/07/15 Formulary)] Fenofibrate Nanocrystallized 145 mg PO DAILY 02/29/16 [Tricor] Rosuvastatin Calcium 40 mg PO DAILY 03/01/16 Cyclobenzaprine HCl [Flexeril 10 10 mg PO BID PRN 03/29/17 mg] Glimepiride - 4 mg PO ASDIR 03/29/17 Meloxicam [Mobic] 15 mg PO DAILY 03/29/17 Pramipexole Di-HCl [Mirapex] 0.125 mg PO DAILY 03/29/17 Sulfamethoxazole/Trimethoprim 1 tab PO BID 03/29/17 [Bactrim Ds -] Tizanidine HCl [Zanaflex (Nf)] 4 mg PO BID 03/29/17 Ondansetron HCl [Zofran] 4 mg PO Q8H #6 tablet 06/21/18 REVIEW OF SYSTEMS CONSTITUTIONAL: Absent: fever, chills, diaphoresis, generalized weakness, malaise, loss of appetite, weight change HEENT: Absent: rhinorrhea, nasal congestion, throat pain, throat swelling, difficulty swallowing, mouth swelling, ear pain, eye pain, visual changes CARDIOVASCULAR: Absent: syncope, palpitations, irregular heart rate, lightheadedness, peripheral edema RESPIRATORY: Absent: cough, shortness of breath, dyspnea with exertion, orthopnea, wheezing, stridor, hemoptysis GASTROINTESTINAL: Absent: abdominal pain, abdominal distension, nausea, vomiting, diarrhea, constipation, melena, hematochezia GENITOURINARY: Absent: dysuria, frequency, urgency, hesitancy, hematuria, flank pain, genital pain MUSCULOSKELETAL: Absent: myalgia, arthralgia, joint swelling, back pain, neck pain SKIN: Absent: rash, itching, pallor HEMATOLOGIC/IMMUNOLOGIC: Absent: easy bleeding, easy bruising, lymphadenopathy, frequent infections ENDOCRINE: Absent: unexplained weight gain, unexplained weight loss, heat intolerance, cold intolerance NEUROLOGIC: Absent: headache, focal weakness or paresthesias, unsteady gait, seizure, mental status changes, bladder or bowel incontinence PSYCHIATRIC: Absent: anxiety, depression, suicidal or homicidal ideation, hallucinations. PHYSICAL EXAMINATION Vital Signs - 24 hr 08/29/18 08/29/18 10:36 11:40 Temperature 98.1 F Pulse Rate 84 Respiratory 16 Rate Blood Pressure 142/88 O2 Sat by Pulse 96 98 Oximetry (%) GENERAL: Awake, alert, and fully oriented, in no acute distress. HEAD: Normal with no signs of trauma. NECK: Normal range of motion, supple without lymphadenopathy, JVD, or masses. LUNGS: Breath sounds equal, clear to auscultation bilaterally. No wheezes, and no crackles. No accessory muscle use. HEART: Regular rate and rhythm, normal S1 and S2 without murmur, rub or gallop. ABDOMEN: Soft, nontender, not distended, normoactive bowel sounds, no guarding, no rebound, no masses. No hepatomegaly or splenomegaly. LOWER EXTREMITIES: 2+ pulses, warm, well-perfused. No calf tenderness. No peripheral edema. NEUROLOGICAL: Cranial nerves II-X intact. Normal speech. PSYCHIATRIC: Cooperative. Good eye contact. Appropriate mood and affect. SKIN: Warm, dry, normal turgor, no rashes or lesions noted, normal capillary refill. Laboratory Results - last 24 hr 08/29/18 08/29/18 08/29/18 11:26 12:07 14:45 WBC 5.3 RBC 4.61 Hgb 13.9 Hct 40.8 MCV 88.4 MCH 30.1 MCHC 34.0 RDW 12.8 Plt Count 214 MPV 10.9 Absolute Neuts (auto) 2.4 Neutrophils % 45.6 D Lymphocytes % 46.5 H D Monocytes % 5.9 D Eosinophils % 1.0 D Basophils % 1.0 Nucleated RBC % 0 Sodium 134 L Potassium 4.7 Chloride 99 Carbon Dioxide 28 Anion Gap 7 L BUN 19 H Creatinine 0.8 Creat Clearance w eGFR 74.47 Random Glucose 178 H Calcium 9.7 Total Bilirubin 0.3 AST 19 ALT 23 Alkaline Phosphatase 76 Troponin I < 0.02 < 0.02 Total Protein 7.0 Albumin 3.8 ASSESSMENT/PLAN: The patient is a 53 yo f w/ PMH HTN, DM who comes into the ED c/o a 3 day history of chest pain and dizziness. She is being admitted for observation and to rule out ACS #Chest pain likely 2/2 msk, r/o ACS -Trend trop -trend EKG -excercise stress test in AM -NPO past midnight -Nitroglycerin .4mg SL PRN chest pain -Echo -telemetry monitoring #Dizziness -orthostatic VS -carotid dopplers -rpt vital signs now #DM -ISS -BGM #HTN -will resume home lisinopril 20mg -Holding home HCTZ while pt dizzy #FEN -no fluids indicated -lytes WNL -diabetic diet tonight; NPO past midnight for echo in AM #Prophy -Lovenox 40mg SQ daily #Dispo -observe on telemetry -Medications verified with patient pharmacy Visit type - Emergency Visit Emergency Visit: Yes ED Registration Date: 08/29/18 Care time: The patient presented to the Emergency Department on the above date and was hospitalized for further evaluation of their emergent condition. - New Patient This patient is new to me today: Yes Date on this admission: 08/29/18 - Critical Care Critical Care patient: No
--- NOTE | 2018-08-29 16:05 | ECHO ---
Name: RACHELLE PALACIOS Exam:Adult Echocardiogram Study Date: 08/29/2018 03:31 PM Age: 53 yrs Reason For Study: CHEST PAIN DIZZINESS Height: 65 in Weight: 164 lb BSA: 1.8 m2 MMode/2D Measurements & Calculations IVSd: 0.73 cm Ao root diam: 2.6 cm LVIDd: 4.2 cm LA dimension: 3.5 cm LVIDs: 2.8 cm LVPWd: 0.66 cm EDV(Teich): 78.7 ml LVOT diam: 2.0 cm ESV(Teich): 30.8 ml Doppler Measurements & Calculations MV E max jamie: 83.9 cm/sec Ao V2 max: 115.5 cm/sec MV A max jamie: 71.1 cm/sec Ao max P.3 mmHg MV E/A: 1.2 Ao V2 mean: 75.1 cm/sec MV dec time: 0.19 sec Ao mean P.6 mmHg Ao V2 VTI: 23.5 cm ETHAN(I,D): 2.1 cm2 ETHAN(V,D): 2.0 cm2 LV V1 max P.2 mmHg MR max jamie: 397.4 cm/sec LV V1 mean P.2 mmHg MR max P.2 mmHg LV V1 max: 74.0 cm/sec LV V1 mean: 51.6 cm/sec LV V1 VTI: 15.8 cm SV(LVOT): 50.1 ml PI end-d jamie: 107.0 cm/sec Med Peak E' Jamie: 6.0 cm/sec Med E/e': 13.9 Lat Peak E' Jamie: 7.2 cm/sec Lat E/e': 11.6 Procedure A complete two-dimensional transthoracic echocardiogram was performed (2D, M-mode, Doppler and color flow Doppler). Left Ventricle The left ventricular size, thickness and function are normal. The left ventricular ejection fraction is normal. Ejection Fraction = 55-60%. Right Ventricle The right ventricle is normal in size and function. Atria Normal left and right atrial size and function. Mitral Valve There is no mitral regurgitation noted. Tricuspid Valve There is trace tricuspid regurgitation. There was insufficient TR detected to calculate RV systolic p ressure. Aortic Valve No hemodynamically significant valvular aortic stenosis. No aortic regurgitation is present. Pulmonic Valve There is no pulmonic valvular regurgitation. Great Vessels The aortic root is normal size. Pericardium/Pleura There is no pericardial effusion. Interpretation Summary The left ventricular size, thickness and function are normal The right ventricle is normal in size and function. There is trace tricuspid regurgitation. MD Osbaldo Odom 08/29/2018 04:05 PM
--- NOTE | 2018-08-29 17:11 | PN ---
Teaching Attending Note Name of Resident: Thom Zavala ATTENDING PHYSICIAN STATEMENT I saw and evaluated the patient. I reviewed the resident's note and discussed the case with the resident. I agree with the resident's findings and plan as documented. SUBJECTIVE: Complains of L sided chest pain, worse on palpation. No associated palps/diaphoresis/nausea/vomiting. Also complains of lightheadedness/dizziness on standing/walking. No LOC/syncope/HI. No headache/visual disturbance, limb numbness/weakness/tingling. OBJECTIVE: Afebrile, Hemodynamically Stable. Last Vital Signs Temp Pulse Resp BP Pulse Ox 98.6 F 78 18 102/48 L 98 08/29/18 16:30 08/29/18 16:30 08/29/18 16:30 08/29/18 16:30 08/29/18 16:30 HEENT - Atraumatic, Normocephalic. Heart - S1, S2, RRR Lungs - clear to auscultation, no crackles/wheeze. Tender L chest wall Abdomen - Soft, non-tender. Bowel Sounds normal. Extremities - no edema, no calf tenderness Neuro - AAO x 3. JEFFREY. No nystagmus. EOMI. Tone/Power normal all 4 extremities Laboratory Results - last 24 hr 08/29/18 08/29/18 08/29/18 11:26 12:07 14:45 WBC 5.3 RBC 4.61 Hgb 13.9 Hct 40.8 MCV 88.4 MCH 30.1 MCHC 34.0 RDW 12.8 Plt Count 214 MPV 10.9 Absolute Neuts (auto) 2.4 Neutrophils % 45.6 D Lymphocytes % 46.5 H D Monocytes % 5.9 D Eosinophils % 1.0 D Basophils % 1.0 Nucleated RBC % 0 Sodium 134 L Potassium 4.7 Chloride 99 Carbon Dioxide 28 Anion Gap 7 L BUN 19 H Creatinine 0.8 Creat Clearance w eGFR 74.47 Random Glucose 178 H Calcium 9.7 Total Bilirubin 0.3 AST 19 ALT 23 Alkaline Phosphatase 76 Troponin I < 0.02 < 0.02 Total Protein 7.0 Albumin 3.8 Current Medications Generic Name Dose Route Start Last Admin Trade Name Freq PRN Reason Stop Dose Admin Enoxaparin Sodium 40 mg 08/30/18 10:00 Lovenox - SQ DAILY ELSY Gabapentin 600 mg 08/29/18 22:00 Neurontin - PO TID [facility] Insulin Aspart 1 vial 08/29/18 16:30 Novolog Vial Sliding Scale - SQ ACHS [facility] Protocol Nitroglycerin 0.4 mg 08/29/18 15:30 Nitrostat - SL Q5M PRN FOR CHEST PAIN Pramipexole Dihydrochloride 1 mg 08/29/18 22:00 Mirapex - PO BID [facility] Home Medications Medication Instructions Recorded Gabapentin 600 mg PO TID 01/07/15 Insulin (Novolog) [Novolog -] See Protocol SQ TID 01/07/15 Canagliflozin [Invokana] 100 mg PO DAILY 08/29/18 Insulin Glargine,Hum.rec.anlog 50 unit SQ DAILY 08/29/18 [Toumely Solostar] Lisinopril/Hydrochlorothiazide 1 each PO DAILY 08/29/18 [Lisinopril-Hctz 20-12.5 mg Tab] Pramipexole Dihydrochloride 1 mg PO BID 08/29/18 [Mirapex -] ASSESSMENT/PLAN: 53 year old female with HTN, DM 2, presents with atypical L sided chest pain for 2-3 days along with reported dizziness/lightheadedness on standing/walking - symptoms became worse while working out at gym today promting her presentation to ED. 1. Atypical CP TropI neg x 2 ECG - non-specific Twave flattening anterior leads. NTG prn for chest pain Echo, Exercise Stress Test in AM, Telemonitoring. 2. Lightheadedness/Dizziness/Presyncope Patient reports symptoms starting on standing from sitting or lying position and on walking ?orthostasis No focal neurological deficit. Orthostatic Vitals requested. Echo pending. Carotid Duplex. 3. DM 2 - Continue Sliding Scale. Resume Glargine. Invokana held. 4. HTN - BP borderline. Hold Lisinopril/HCTZ while experiencing dizziness pending Orthostatic vital readings. DVT Px - Lovenox SQ
[2018-08-29] MEDS: INSULIN SLIDING SCALE (NOVOLOG) 1 VIAL SQ SCH ×2 (17:38→21:48)
[2018-08-29] MEDS: GABAPENTIN 300 MG CAPSULE (FP) PO SCH (21:48)
[2018-08-29] MEDS: PRAMIPEXOLE DIHYDROCHLORIDE 1 MG TABLET PO SCH (21:48)
[2018-08-30] MEDS: GABAPENTIN 300 MG CAPSULE (FP) PO SCH ×2 (05:22→13:33)
[2018-08-30] MEDS: INSULIN SLIDING SCALE (NOVOLOG) 1 VIAL SQ SCH ×2 (06:04→12:29)
[2018-08-30] MEDS ORDERED: INSULIN (LEVEMIR) 100 UNITS/ML UNITS SQ SCH (07:00)
[2018-08-30 08:16] LABS: HEMATOCRIT 40.8 % (32.4-45.2); HEMOGLOBIN 13.7 GM/dL (10.7-15.3); MCH 29.7 pg (25.7-33.7); MCHC 33.5 g/dl (32.0-36.0); MEAN CELL VOLUME 88.5 fl (80-96); MEAN PLT VOLUME 11.1 fl (7.5-11.1); PLATELET COUNT 248 K/MM3 (134-434); RBC 4.61 M/mm3 (3.60-5.2); RDW 12.5 % (11.6-15.6)
[2018-08-30 08:51] LABS: ALBUMIN 3.5 g/dl (3.4-5.0); ALK PHOS 65 U/L (45-117); BILIRUBIN,TOTAL 0.3 mg/dL (0.2-1); BLOOD UREA NITROGEN 20 mg/dL (7-18); CALCIUM 9.6 mg/dL (8.5-10.1); CHLORIDE 102 mmol/L (98-107); CO2 30 mmol/L (21-32); CREATININE 0.7 mg/dL (0.55-1.3); GLUCOSE,RANDOM 101 mg/dL (74-106); MAGNESIUM 1.7 mg/dL (1.8-2.4); PHOSPHOROUS 4.4 mg/dL (2.5-4.9); POTASSIUM 4.8 mmol/L (3.5-5.1); SGOT/AST 17 U/L (15-37); SGPT/ALT 22 U/L (13-61); SODIUM 139 mmol/L (136-145); TOT PROT 6.4 g/dl (6.4-8.2)
[2018-08-30 08:52] LABS: ANION GAP 8 MMOL/L (8-16)
[2018-08-30 08:56] LABS: INR 0.97 (0.83-1.09); PROTHROMBIN TIME (PATIENT) 11.5 SEC (9.7-13.0)
[2018-08-30 08:58] VITALS: TEMP 97.8
[2018-08-30 08:58] LABS: ACTIVATED PTT 34.6 SECONDS (25.2-36.5)
--- NOTE | 2018-08-30 09:13 | PN ---
Physical Exam: SUBJECTIVE: Patient seen and examined at [facility]- no acute events overnight patient states her pain has improved and she is no longer dizzy; she denies any CP/SOb/N;v she is going for stress test this AM OBJECTIVE: Vital Signs Period Temp Pulse Resp BP Sys/Lopez Pulse Ox Last 24 Hr 97.5 F-98.6 F 74-84 16-19 91-142/45-88 96-98 GENERAL: The patient is awake, alert, and fully oriented, in no acute distress. EYES: PEERLA: EOMI; no scleral icterus NECK: no JVD: no lymphadenopathy LUNGS: CTA B/L; no rales, rhonchi or wheezing HEART: Regular rate and rhythm, S1, S2 without murmur, rub or gallop. ABDOMEN: Soft, nontender, nondistended, normoactive bowel sounds, no guarding, no rebound, no hepatosplenomegaly, no masses. EXTREMITIES: 2+ pulses, warm, well-perfused, no edema. . PSYCH: Normal mood, normal affect. SKIN: Warm, dry, normal turgor, no rashes or lesions noted Laboratory Results - last 24 hr 08/29/18 08/29/18 08/29/18 11:26 12:07 14:45 WBC 5.3 RBC 4.61 Hgb 13.9 Hct 40.8 MCV 88.4 MCH 30.1 MCHC 34.0 RDW 12.8 Plt Count 214 MPV 10.9 Absolute Neuts (auto) 2.4 Neutrophils % 45.6 D Lymphocytes % 46.5 H D Monocytes % 5.9 D Eosinophils % 1.0 D Basophils % 1.0 Nucleated RBC % 0 PT with INR INR PTT (Actin FS) Sodium 134 L Potassium 4.7 Chloride 99 Carbon Dioxide 28 Anion Gap 7 L BUN 19 H Creatinine 0.8 Creat Clearance w eGFR 74.47 POC Glucometer Random Glucose 178 H Calcium 9.7 Phosphorus Magnesium Total Bilirubin 0.3 AST 19 ALT 23 Alkaline Phosphatase 76 Troponin I < 0.02 < 0.02 Total Protein 7.0 Albumin 3.8 08/29/18 08/29/18 08/29/18 17:32 21:25 21:50 WBC RBC Hgb Hct MCV MCH MCHC RDW Plt Count MPV Absolute Neuts (auto) Neutrophils % Lymphocytes % Monocytes % Eosinophils % Basophils % Nucleated RBC % PT with INR INR PTT (Actin FS) Sodium Potassium Chloride Carbon Dioxide Anion Gap BUN Creatinine Creat Clearance w eGFR POC Glucometer 87 233 Random Glucose Calcium Phosphorus Magnesium Total Bilirubin AST ALT Alkaline Phosphatase Troponin I < 0.02 Total Protein Albumin 08/30/18 08/30/18 08/30/18 05:18 07:00 07:00 WBC 6.0 RBC 4.61 Hgb 13.7 Hct 40.8 MCV 88.5 MCH 29.7 MCHC 33.5 RDW 12.5 Plt Count 248 MPV 11.1 Absolute Neuts (auto) Neutrophils % Lymphocytes % Monocytes % Eosinophils % Basophils % Nucleated RBC % PT with INR 11.50 INR 0.97 PTT (Actin FS) 34.6 Sodium Potassium Chloride Carbon Dioxide Anion Gap BUN Creatinine Creat Clearance w eGFR POC Glucometer 87 Random Glucose Calcium Phosphorus Magnesium Total Bilirubin AST ALT Alkaline Phosphatase Troponin I Total Protein Albumin 08/30/18 07:00 WBC RBC Hgb Hct MCV MCH MCHC RDW Plt Count MPV Absolute Neuts (auto) Neutrophils % Lymphocytes % Monocytes % Eosinophils % Basophils % Nucleated RBC % PT with INR INR PTT (Actin FS) Sodium 139 Potassium 4.8 Chloride 102 Carbon Dioxide 30 Anion Gap 8 BUN 20 H Creatinine 0.7 Creat Clearance w eGFR 86.88 POC Glucometer Random Glucose 101 Calcium 9.6 Phosphorus 4.4 Magnesium 1.7 L Total Bilirubin 0.3 AST 17 ALT 22 Alkaline Phosphatase 65 Troponin I Total Protein 6.4 Albumin 3.5 Active Medications Generic Name Dose Route Start Last Admin Trade Name Freq PRN Reason Stop Dose Admin Enoxaparin Sodium 40 mg 08/30/18 10:00 Lovenox - SQ DAILY [facility] Gabapentin 600 mg 08/29/18 22:00 08/30/18 05:22 Neurontin - PO 600 mg TID [facility] Administration Insulin Aspart 1 vial 08/29/18 16:30 08/30/18 06:04 Novolog Vial Sliding Scale - SQ Not Given ACHS [facility] Protocol Insulin Detemir 40 units 08/30/18 07:00 08/30/18 06:04 Levemir Vial SQ Not Given DAILY@0700 [facility] Nitroglycerin 0.4 mg 08/29/18 15:30 Nitrostat - SL Q5M PRN FOR CHEST PAIN Pramipexole Dihydrochloride 1 mg 08/29/18 22:00 08/29/18 21:48 Mirapex - PO 1 mg BID ELSY Administration ASSESSMENT/PLAN: The patient is a 53 yo f w/ PMH HTN, DM who comes into the ED c/o a 3 day history of chest pain and dizziness. She is being admitted for observation and to rule out ACS #Chest pain likely 2/2 msk, r/o ACS -Trend trop -trend EKG -excercise stress test in AM -NPO past midnight -Nitroglycerin .4mg SL PRN chest pain -Echo -telemetry monitoring #Dizziness -orthostatic VS -carotid dopplers -rpt vital signs now #DM -ISS -BGM #HTN -will resume home lisinopril 20mg -Holding home HCTZ while pt dizzy #FEN -no fluids indicated -lytes WNL -diabetic diet tonight; NPO past midnight for echo in AM #Prophy -Lovenox 40mg SQ daily
[2018-08-30] MEDS ORDERED: PATIENT'S OWN MEDICATION (NON-FORMULARY) (Insulin Glargine,Hum.Rec.Anlog [Toujeo Solostar] SQ SCH (10:00)
[2018-08-30] MEDS ORDERED: ENOXAPARIN NA (PORCINE) 40 MG/0.4 ML DISP.SYRIN SQ SCH (10:00)
[2018-08-30] MEDS ORDERED: LISINOPRIL 20 MG TABLET (FP) PO SCH (10:00)
[2018-08-30] MEDS ORDERED: SODIUM CHLORIDE 1,000 ML IV SCH (11:15)
--- NOTE | 2018-08-30 12:23 | EKG ---
Test Reason : Blood Pressure : / mmHG Vent. Rate : 078 BPM Atrial Rate : 078 BPM P-R Int : 132 ms QRS Dur : 094 ms QT Int : 384 ms P-R-T Axes : 038 005 014 degrees QTc Int : 437 ms NORMAL SINUS RHYTHM NORMAL ECG NO PREVIOUS ECGS AVAILABLE Confirmed by LEXUS SANCHEZ, OREN ([id number]) on 08/30/2018 12:23:22 PM Referred By: Confirmed By:OREN ALBERTS MD
--- NOTE | 2018-08-30 12:24 | EKG ---
Test Reason : Blood Pressure : / mmHG Vent. Rate : 074 BPM Atrial Rate : 074 BPM P-R Int : 142 ms QRS Dur : 090 ms QT Int : 404 ms P-R-T Axes : 029 005 009 degrees QTc Int : 448 ms NORMAL SINUS RHYTHM NORMAL ECG NO PREVIOUS ECGS AVAILABLE Confirmed by LEXUS SANCHEZ, OREN ([id number]) on 08/30/2018 12:24:27 PM Referred By: Confirmed By:OREN ALBERTS MD
[2018-08-30] MEDS ORDERED: PT OWN MED DRAWER 7, Y5N ONE (12:39)
[2018-08-30] MEDS: PRAMIPEXOLE DIHYDROCHLORIDE 1 MG TABLET PO SCH (12:39)
--- NOTE | 2018-08-30 14:49 | PN ---
Teaching Attending Note Name of Resident: Sanam Elmore ATTENDING PHYSICIAN STATEMENT I saw and evaluated the patient. I reviewed the resident's note and discussed the case with the resident. I agree with the resident's findings and plan as documented. SUBJECTIVE: no cp , no AMBROCIO , no light headedness or vertigo. OBJECTIVE: NAD CV: RRR Lungs: CTAB Ext: no edema TTP over lower sternal area aurora halpike neg ASSESSMENT AND PLAN: 53 y/o lady with h/o DM , HTN, and Hyperlipidemia. who presented with Chest pain and light headedness 1- CP: atypical , reproducible. stress test neg . EKG with NSR. Echo reviewed. no further w/u as inpt 2- Light headedness: no vertigo. [place] Halpike neg. low BP and elevated BUN suggest orthostasis. dc lisinopril/HCTZ and start lisinopril 10 mg in 2 days prescribe BP cuff for her to check daily received IVF , cont with oral hydration 3- DM : low sugar today.. hadley ask her to cont levemir at a lower dose at dc and follow dispo: DC home
[2018-08-30 14:58] VITALS: BP 107/65; PULSE 86
--- NOTE | 2018-08-30 15:02 | DS ---
Physical Exam: SUBJECTIVE: Patient seen and examined at [facility]- no acute events overnight patient states her pain has improved and she is no longer dizzy; she denies any CP/SOb/N;v she is going for stress test this AM OBJECTIVE: Vital Signs Period Temp Pulse Resp BP Sys/Lopez Pulse Ox Last 24 Hr 97.5 F-98.6 F 74-86 16-19 91-125/45-78 97-98 PHYSICAL EXAM GENERAL: The patient is awake, alert, and fully oriented, in no acute distress. EYES: PEERLA: EOMI; no scleral icterus NECK: no JVD: no lymphadenopathy LUNGS: CTA B/L; no rales, rhonchi or wheezing HEART: Regular rate and rhythm, S1, S2 without murmur, rub or gallop. ABDOMEN: Soft, nontender, nondistended, normoactive bowel sounds, no guarding, no rebound, no hepatosplenomegaly, no masses. EXTREMITIES: 2+ pulses, warm, well-perfused, no edema. . PSYCH: Normal mood, normal affect. SKIN: Warm, dry, normal turgor, no rashes or lesions noted LABS Laboratory Results - last 24 hr 08/29/18 08/29/18 08/29/18 14:45 17:32 21:25 WBC RBC Hgb Hct MCV MCH MCHC RDW Plt Count MPV PT with INR INR PTT (Actin FS) Sodium Potassium Chloride Carbon Dioxide Anion Gap BUN Creatinine Creat Clearance w eGFR POC Glucometer 87 233 Random Glucose Calcium Phosphorus Magnesium Total Bilirubin AST ALT Alkaline Phosphatase Troponin I < 0.02 Total Protein Albumin 08/29/18 08/30/18 08/30/18 21:50 05:18 07:00 WBC 6.0 RBC 4.61 Hgb 13.7 Hct 40.8 MCV 88.5 MCH 29.7 MCHC 33.5 RDW 12.5 Plt Count 248 MPV 11.1 PT with INR INR PTT (Actin FS) Sodium Potassium Chloride Carbon Dioxide Anion Gap BUN Creatinine Creat Clearance w eGFR POC Glucometer 87 Random Glucose Calcium Phosphorus Magnesium Total Bilirubin AST ALT Alkaline Phosphatase Troponin I < 0.02 Total Protein Albumin 08/30/18 08/30/18 08/30/18 07:00 07:00 12:11 WBC RBC Hgb Hct MCV MCH MCHC RDW Plt Count MPV PT with INR 11.50 INR 0.97 PTT (Actin FS) 34.6 Sodium 139 Potassium 4.8 Chloride 102 Carbon Dioxide 30 Anion Gap 8 BUN 20 H Creatinine 0.7 Creat Clearance w eGFR 86.88 POC Glucometer 178 Random Glucose 101 Calcium 9.6 Phosphorus 4.4 Magnesium 1.7 L Total Bilirubin 0.3 AST 17 ALT 22 Alkaline Phosphatase 65 Troponin I Total Protein 6.4 Albumin 3.5 HOSPITAL COURSE: Date of Admission:08/29/18 The patient is a 53 yo f w/ PMH HTN, DM who comes into the ED c/o a 3 day history of chest pain and dizziness. The patient states that 3 days ago, she began to experience several discrete episodes of dizziness. each episode lasted approx. 2 mins before resolving spontaneously. The patient endorses feeling this dizziness when going from laying to sitting or sitting to standing. Patient denies syncope or near syncope. She associates thia dizziness with chest pain. She states that the chest pain is located on the lest side of her chest without radiation or modifying factors. The patient states that she has never had this chest pain previously and that is is different than the muscular pain she felt from exercising. This chest pain got worse today while she was at the gym, causing her to seek medical attention. she was given ASA 325 and nitro once no EKG changes . an echo was gone whicch was normal in addition, a stress test was done which was nromal. she was d/c home with a change in her BP meds (d /c hctz/lisinopril) and gave script for lisinipril in addition for a BP cuff Date of Discharge: 08/30/18 Minutes to complete discharge: 39 Discharge Summary Reason For Visit: LEFT SIDE CHEST PAIN,TYPE 1 DM,DIZZINESS,NECK PAIN Current Active Problems Hyperglycemia due to type 1 diabetes mellitus (Chronic) Condition: Improved - Instructions Diet, Activity, Other Instructions: You came to the emergency room with complaints of chest pains and dizziness. We did an EKG of your heart, an ultrasound of your carotid arteries, and measured your cardiac enzymes all of which were normal. You underwent an exercise stress test which was also normal. Your symptoms improved and you were stable to be discharged home. Please resume all of your home medications EXCEPT: do not take the blood pressure combo pill of HCTZ/Lisinopril Instead we are prescribing you Lisinopril 10mg to start on 09/01/18 We are referring you to a primary care physician we would like you to follow up with in one week We are also referring you to a oral therapist, Dr. Mike, we would like you to see within one week *if you begin to experience worsening chest pains, shortness of breath, nausea/ vomiting please return to the emergency room immediately please check your blood pressure daily in am. If < 100 /60 please hold your blood pressure med and call MD Referrals: Coy Jaquez MD [Staff Physician] - 1 Week Samuel Mike MD [Staff Physician] - 1 Week Disposition: HOME - Home Medications Comprehensive Discharge Medication List: Ambulatory Orders Gabapentin 600 mg PO TID 01/07/15 Insulin (Novolog) [Novolog -] See Protocol SQ TID 01/07/15 Canagliflozin [Invokana] 100 mg PO DAILY 08/29/18 Insulin Glargine,Hum.rec.anlog [Toujeo Solostar] 50 unit SQ DAILY 08/29/18 Pramipexole Dihydrochloride [Mirapex -] 1 mg PO BID 08/29/18 Lisinopril [Prinivil] 10 mg PO DAILY #30 tablet 08/30/18 Medical Supply, Miscellaneous [Blood Pressure Cuff] 1 each [facility] DAILY #1 each 10/13 Problem List - Problems (1) Hyperglycemia due to type 1 diabetes mellitus Code(s): E10.65 - TYPE 1 DIABETES MELLITUS WITH HYPERGLYCEMIA (2) Dizziness, nonspecific Code(s): R42 - DIZZINESS AND GIDDINESS (3) Left-sided chest pain Code(s): R07.9 - CHEST PAIN, UNSPECIFIED This patient is new to me today: Yes Date on this admission: 08/30/18 Emergency Visit: Yes ED Registration Date: 08/29/18 Care time: The patient presented to the Emergency Department on the above date and was hospitalized for further evaluation of their emergent condition. Critical Care patient: No - Discharge Referral Referred to [facility] Med [facility].C[facility] No
== END 2018-08-30 16:30 | disposition home or self-care (01) ==
LOC: JER 10:15 → UNDOADMOB 13:57 → JERBED 13:57 → INTOOBSV 13:57 → JERBED 14:11 → J4S 17:40
PROVIDERS: ATTEND Internal Medicine
PROC: 3E0333Z Introduction of Anti-inflammatory into Peripheral Vein, Percutaneous Approach (ICD-10-PCS; principal; 2018-08-29)
PROC: 3E0337Z Introduction of Electrolytic and Water Balance Substance into Peripheral Vein, Percutaneous Approach (ICD-10-PCS; 2018-08-29)
PROC: 3E013VG Introduction of Insulin into Subcutaneous Tissue, Percutaneous Approach (ICD-10-PCS; 2018-08-29)
PROC: 3E013GC Introduction of Other Therapeutic Substance into Subcutaneous Tissue, Percutaneous Approach (ICD-10-PCS; 2018-08-29)
DX: R07.89 Other chest pain (principal); M54.2 Cervicalgia; R42 Dizziness and giddiness; E11.65 Type 2 diabetes mellitus with hyperglycemia; R94.31 Abnormal electrocardiogram [ECG] [EKG]; I10 Essential (primary) hypertension; E78.5 Hyperlipidemia, unspecified; Z79.4 Long term (current) use of insulin; Z79.84 Long term (current) use of oral hypoglycemic drugs; Z91.040 Latex allergy status
CPT/HCPCS: 36415; 71046-TC-FY; 78452-TC; 80053; 82962; 83735; 84100; 84484; 85025; 85027; 85610; 85730; 93005; 93010; 93017; 93306-TC; 93880-TC; 96372; 96374; 99285-25; A9502; G0378; J7030

== ENCOUNTER 2020-07-21 17:14 | Inpatient (IN) | payer OTHER ==
[2020-07-21] MEDS ORDERED: PIPERACILLIN/TAZOB 3.375 GM 3.375 GM in DEXTROSE 5%-WATER - 50 ML IVPB ONE (18:41)
[2020-07-21] MEDS ORDERED: VANCOMYCIN 1 GM in D5W (PRE-DOCKED) 1,000 MG/250 ML IVPB ONE (18:41)
[2020-07-21] MEDS ORDERED: ACETAMINOPHEN 1000 MG/100 ML VIAL (NON FORMULARY) IVPB ONE (18:44)
[2020-07-21] MEDS ORDERED: PIPERACILLIN/TAZOB 3.375 GM 3.375 GM/50 ML BAG IVPB ONE (19:12)
[2020-07-21] MEDS ORDERED: ACETAMINOPHEN INJECTION 100 ML IVPB ONE (19:12)
[2020-07-21] MEDS ORDERED: VANCOMYCIN 1 GRAM (PRE-DOCKED) 1,000 MG/250 ML BAG IVPB ONE (19:12)
[2020-07-21 19:19] LABS: BASO % 0.3 % (0-2.0); EOS % 1.3 % (0-4.5); HEMATOCRIT 37.4 % (32.4-45.2); HEMOGLOBIN 12.7 GM/dL (10.7-15.3); LYMPH % 29.3 % (8-40); MCH 29.4 pg (25.7-33.7); MEAN CELL VOLUME 86.5 fl (80-96); MEAN PLT VOLUME 10.9 fl (7.5-11.1); MONO % 6.4 % (3.8-10.2); NEUT % 62.7 % (42.8-82.8); PLATELET COUNT 191 K/MM3 (134-434); RBC 4.32 M/mm3 (3.60-5.2); RDW 12.7 % (11.6-15.6); WHITE BLOOD COUNT 6.8 K/mm3 (4.0-10.0)
[2020-07-21 19:29] LABS: INR 1.01 (0.83-1.09); PROTHROMBIN TIME (PATIENT) 12.4 SEC (9.7-13.0)
[2020-07-21 19:32] LABS: ACTIVATED PTT 32.5 SECONDS (25.2-36.5)
[2020-07-21 19:36] LABS: POTASSIUM 4.1 mmol/L (3.5-5.1)
[2020-07-21 19:41] LABS: CALCIUM 9.1 mg/dL (8.5-10.1)
[2020-07-21 19:42] LABS: ALBUMIN 3.5 g/dl (3.4-5.0); MAGNESIUM 1.2 mg/dL (1.8-2.4)
[2020-07-21 19:45] LABS: CREATININE 0.7 mg/dL (0.55-1.3); PHOSPHOROUS 3.4 mg/dL (2.5-4.9)
[2020-07-21 19:46] LABS: BILIRUBIN,TOTAL 0.3 mg/dL (0.2-1)
[2020-07-21] MEDS ORDERED: GABAPENTIN 100 MG CAPSULE ONE (22:30)
[2020-07-21] MEDS: GABAPENTIN 300 MG CAPSULE PO SCH (23:30)
[2020-07-21] MEDS: INSULIN SLIDING SCALE (NOVOLOG) 1 VIAL SQ SCH (23:31)
[2020-07-22 00:06] VITALS: BMI 30.9
[2020-07-22] MEDS: PRAMIPEXOLE DIHYDROCHLORIDE 1 MG TABLET PO SCH ×3 (01:10→21:26)
[2020-07-22] MEDS ORDERED: DEXTROSE 5%-WATER - 50 ML IVPB ONE ×3 (01:13→17:35)
[2020-07-22] MEDS ORDERED: PIPERACILLIN/TAZOBACTAM 2.25 GM VIAL IVPB ONE ×2 (01:13→10:02)
[2020-07-22] MEDS: PIPERACILLIN/TAZOB 2.25 GM 2.25 GM in DEXTROSE 5%-WATER - 50 ML IVPB SCH ×3 (01:20→18:50)
[2020-07-22] MEDS: GABAPENTIN 300 MG CAPSULE PO SCH ×3 (05:53→21:26)
[2020-07-22] MEDS: INSULIN SLIDING SCALE (NOVOLOG) 1 VIAL SQ SCH ×4 (06:00→21:26)
[2020-07-22 07:08] LABS: BASO % 0.6 % (0-2.0); HEMOGLOBIN 13.5 GM/dL (10.7-15.3); LYMPH % 36.2 % (8-40); MCHC 34.6 g/dl (32.0-36.0); MEAN CELL VOLUME 86.8 fl (80-96); MEAN PLT VOLUME 10.4 fl (7.5-11.1); MONO % 5.3 % (3.8-10.2); NEUT % 55.9 % (42.8-82.8); PLATELET COUNT 230 K/MM3 (134-434); RBC 4.49 M/mm3 (3.60-5.2); RDW 12.9 % (11.6-15.6); WHITE BLOOD COUNT 7.8 K/mm3 (4.0-10.0)
[2020-07-22 07:39] LABS: POTASSIUM 4.2 mmol/L (3.5-5.1)
[2020-07-22 07:46] LABS: ALBUMIN 3.6 g/dl (3.4-5.0); CALCIUM 9.7 mg/dL (8.5-10.1)
[2020-07-22 07:47] LABS: BLOOD UREA NITROGEN 12.8 mg/dL (7-18); MAGNESIUM 1.3 mg/dL (1.8-2.4)
[2020-07-22 07:50] LABS: CREATININE 0.8 mg/dL (0.55-1.3); PHOSPHOROUS 3.5 mg/dL (2.5-4.9)
[2020-07-22 07:51] LABS: TOT PROT 7.2 g/dl (6.4-8.2)
[2020-07-22 08:04] LABS: BILIRUBIN,TOTAL 0.7 mg/dL (0.2-1)
[2020-07-22] MEDS ORDERED: PT OWN MED DRAWER 7, Y5N ONE ×2 (10:02→21:08)
[2020-07-22] MEDS: LISINOPRIL 10 MG TABLET PO SCH (10:12)
[2020-07-22] MEDS: ENOXAPARIN NA (PORCINE) 40 MG/0.4 ML DISP.SYRIN SQ SCH (10:12)
[2020-07-22] MEDS ORDERED: PIPERACILLIN/TAZOBACTAM 3.375 GM VIAL IVPB ONE (17:35)
[2020-07-22] MEDS: PIPERACILLIN/TAZOB 3.375 GM 3.375 GM in DEXTROSE 5%-WATER - 50 ML IVPB SCH (17:39)
[2020-07-23] MEDS ORDERED: PIPERACILLIN/TAZOBACTAM 3.375 GM VIAL IVPB ONE ×3 (01:21→17:05)
[2020-07-23] MEDS ORDERED: DEXTROSE 5%-WATER - 50 ML IVPB ONE ×3 (01:21→17:05)
[2020-07-23] MEDS: PIPERACILLIN/TAZOB 3.375 GM 3.375 GM in DEXTROSE 5%-WATER - 50 ML IVPB SCH ×3 (01:29→17:14)
[2020-07-23] MEDS: GABAPENTIN 300 MG CAPSULE PO SCH ×3 (06:39→21:14)
[2020-07-23] MEDS: INSULIN SLIDING SCALE (NOVOLOG) 1 VIAL SQ SCH ×4 (07:27→21:14)
[2020-07-23 07:43] LABS: BASO % 0.5 % (0-2.0); HEMATOCRIT 35.1 % (32.4-45.2); HEMOGLOBIN 12.1 GM/dL (10.7-15.3); LYMPH % 25.2 % (8-40); MCH 29.5 pg (25.7-33.7); MCHC 34.6 g/dl (32.0-36.0); MEAN CELL VOLUME 85.1 fl (80-96); MEAN PLT VOLUME 11.2 fl (7.5-11.1); MONO % 4.2 % (3.8-10.2); NEUT % 69.1 % (42.8-82.8); PLATELET COUNT 190 K/MM3 (134-434); RBC 4.12 M/mm3 (3.60-5.2); RDW 12.8 % (11.6-15.6)
[2020-07-23 08:04] LABS: POTASSIUM 4.3 mmol/L (3.5-5.1)
[2020-07-23 08:19] LABS: ALBUMIN 3.1 g/dl (3.4-5.0); BILIRUBIN,TOTAL 0.6 mg/dL (0.2-1); BLOOD UREA NITROGEN 16.1 mg/dL (7-18); CALCIUM 9.3 mg/dL (8.5-10.1); CREATININE 0.7 mg/dL (0.55-1.3); MAGNESIUM 1.4 mg/dL (1.8-2.4); TOT PROT 6.3 g/dl (6.4-8.2)
[2020-07-23] MEDS ORDERED: PT OWN MED DRAWER 7, Y5N ONE ×3 (10:50→21:08)
[2020-07-23] MEDS: MAGNESIUM OXIDE 400 MG TABLET (FP) PO SCH ×2 (11:07→21:13)
[2020-07-23] MEDS: ENOXAPARIN NA (PORCINE) 40 MG/0.4 ML DISP.SYRIN SQ SCH (11:07)
[2020-07-23] MEDS: LISINOPRIL 10 MG TABLET PO SCH (11:08)
[2020-07-23] MEDS: PRAMIPEXOLE DIHYDROCHLORIDE 1 MG TABLET PO SCH ×2 (11:08→21:13)
[2020-07-23] MEDS ORDERED: SILVER SULFADIAZINE 1% TOP CREAM 400 GM JAR TP SCH (12:00)
[2020-07-23] MEDS: SILVER SULFADIAZINE 1% TOP CREAM 50 GM JAR TP SCH ×2 (13:24→21:15)
[2020-07-24] MEDS ORDERED: PIPERACILLIN/TAZOBACTAM 3.375 GM VIAL IVPB ONE ×3 (02:30→16:41)
[2020-07-24] MEDS ORDERED: DEXTROSE 5%-WATER - 50 ML IVPB ONE ×3 (02:31→16:41)
[2020-07-24] MEDS: PIPERACILLIN/TAZOB 3.375 GM 3.375 GM in DEXTROSE 5%-WATER - 50 ML IVPB SCH ×3 (02:58→17:08)
[2020-07-24] MEDS: GABAPENTIN 300 MG CAPSULE PO SCH ×3 (06:08→21:06)
[2020-07-24] MEDS: INSULIN SLIDING SCALE (NOVOLOG) 1 VIAL SQ SCH (06:08)
[2020-07-24] MEDS ORDERED: PT OWN MED DRAWER 7, Y5N ONE ×5 (08:32→20:57)
[2020-07-24 08:52] LABS: BASO % 0.6 % (0-2.0); EOS % 1.8 % (0-4.5); HEMATOCRIT 35.4 % (32.4-45.2); HEMOGLOBIN 12.1 GM/dL (10.7-15.3); LYMPH % 30.8 % (8-40); MCH 29.5 pg (25.7-33.7); MCHC 34.2 g/dl (32.0-36.0); MEAN CELL VOLUME 86.3 fl (80-96); MEAN PLT VOLUME 10.5 fl (7.5-11.1); MONO % 7.6 % (3.8-10.2); NEUT % 59.2 % (42.8-82.8); PLATELET COUNT 178 K/MM3 (134-434); RDW 12.6 % (11.6-15.6)
[2020-07-24] MEDS: ENOXAPARIN NA (PORCINE) 40 MG/0.4 ML DISP.SYRIN SQ SCH (09:14)
[2020-07-24] MEDS: PRAMIPEXOLE DIHYDROCHLORIDE 1 MG TABLET PO SCH ×2 (09:14→21:07)
[2020-07-24] MEDS: LISINOPRIL 10 MG TABLET PO SCH (09:14)
[2020-07-24 09:28] LABS: POTASSIUM 4.1 mmol/L (3.5-5.1)
[2020-07-24 09:51] LABS: BILIRUBIN,TOTAL 0.4 mg/dL (0.2-1)
[2020-07-24 10:06] LABS: ALBUMIN 3.2 g/dl (3.4-5.0)
[2020-07-24 10:09] LABS: BLOOD UREA NITROGEN 14.9 mg/dL (7-18); MAGNESIUM 1.5 mg/dL (1.8-2.4)
[2020-07-24 10:11] LABS: CALCIUM 9.4 mg/dL (8.5-10.1); CREATININE 0.9 mg/dL (0.55-1.3)
[2020-07-24 10:12] LABS: TOT PROT 6.5 g/dl (6.4-8.2)
[2020-07-24] MEDS: SILVER SULFADIAZINE 1% TOP CREAM 50 GM JAR TP SCH ×2 (11:06→21:07)
[2020-07-24] MEDS ORDERED: INSULIN SLIDING SCALE (NOVOLOG) 1 VIAL SQ SCH ×2 (11:15→16:30)
[2020-07-25] MEDS ORDERED: DEXTROSE 5%-WATER - 50 ML IVPB ONE ×3 (01:15→15:46)
[2020-07-25] MEDS ORDERED: PIPERACILLIN/TAZOBACTAM 3.375 GM VIAL IVPB ONE ×3 (01:15→15:45)
[2020-07-25] MEDS: PIPERACILLIN/TAZOB 3.375 GM 3.375 GM in DEXTROSE 5%-WATER - 50 ML IVPB SCH ×3 (01:34→17:30)
[2020-07-25] MEDS: GABAPENTIN 300 MG CAPSULE PO SCH ×3 (05:56→22:17)
[2020-07-25 07:48] LABS: BASO % 0.5 % (0-2.0); EOS % 1.8 % (0-4.5); HEMATOCRIT 37.3 % (32.4-45.2); HEMOGLOBIN 12.9 GM/dL (10.7-15.3); LYMPH % 37.2 % (8-40); MCH 29.8 pg (25.7-33.7); MCHC 34.6 g/dl (32.0-36.0); MEAN CELL VOLUME 86.2 fl (80-96); MEAN PLT VOLUME 10.3 fl (7.5-11.1); MONO % 7.2 % (3.8-10.2); NEUT % 53.3 % (42.8-82.8); PLATELET COUNT 222 K/MM3 (134-434); RBC 4.33 M/mm3 (3.60-5.2); RDW 12.5 % (11.6-15.6); WHITE BLOOD COUNT 8.2 K/mm3 (4.0-10.0)
[2020-07-25 07:56] LABS: POTASSIUM 4.2 mmol/L (3.5-5.1)
[2020-07-25 08:11] LABS: ALBUMIN 3.3 g/dl (3.4-5.0); CALCIUM 9.6 mg/dL (8.5-10.1)
[2020-07-25 08:12] LABS: BLOOD UREA NITROGEN 20.7 mg/dL (7-18); MAGNESIUM 1.7 mg/dL (1.8-2.4)
[2020-07-25 08:15] LABS: CREATININE 0.9 mg/dL (0.55-1.3)
[2020-07-25 08:16] LABS: BILIRUBIN,TOTAL 0.3 mg/dL (0.2-1); TOT PROT 6.6 g/dl (6.4-8.2)
[2020-07-25] MEDS: PRAMIPEXOLE DIHYDROCHLORIDE 1 MG TABLET PO SCH ×2 (10:08→22:17)
[2020-07-25] MEDS: LISINOPRIL 10 MG TABLET PO SCH (10:09)
[2020-07-25] MEDS: ENOXAPARIN NA (PORCINE) 40 MG/0.4 ML DISP.SYRIN SQ SCH (10:09)
[2020-07-25] MEDS: SILVER SULFADIAZINE 1% TOP CREAM 50 GM JAR TP SCH ×2 (13:35→22:17)
[2020-07-25] MEDS ORDERED: PT OWN MED DRAWER 7, Y5N ONE (21:05)
[2020-07-26] MEDS ORDERED: DEXTROSE 5%-WATER - 50 ML IVPB ONE ×2 (01:12→10:19)
[2020-07-26] MEDS ORDERED: PIPERACILLIN/TAZOBACTAM 3.375 GM VIAL IVPB ONE ×2 (01:12→10:19)
[2020-07-26] MEDS: PIPERACILLIN/TAZOB 3.375 GM 3.375 GM in DEXTROSE 5%-WATER - 50 ML IVPB SCH ×2 (01:46→10:51)
[2020-07-26] MEDS: GABAPENTIN 300 MG CAPSULE PO SCH ×2 (05:39→13:57)
[2020-07-26 10:15] LABS: BASO % 0.9 % (0-2.0); EOS % 1.6 % (0-4.5); HEMATOCRIT 38.8 % (32.4-45.2); HEMOGLOBIN 13.2 GM/dL (10.7-15.3); LYMPH % 32.6 % (8-40); MCH 29.4 pg (25.7-33.7); MCHC 33.9 g/dl (32.0-36.0); MEAN CELL VOLUME 86.6 fl (80-96); MEAN PLT VOLUME 10.2 fl (7.5-11.1); MONO % 6.9 % (3.8-10.2); PLATELET COUNT 243 K/MM3 (134-434); RBC 4.48 M/mm3 (3.60-5.2); RDW 12.8 % (11.6-15.6); WHITE BLOOD COUNT 7.2 K/mm3 (4.0-10.0)
[2020-07-26 10:45] LABS: CALCIUM 9.4 mg/dL (8.5-10.1)
[2020-07-26 10:46] LABS: ALBUMIN 3.4 g/dl (3.4-5.0); BLOOD UREA NITROGEN 17.1 mg/dL (7-18); MAGNESIUM 1.7 mg/dL (1.8-2.4)
[2020-07-26 10:49] LABS: CREATININE 0.8 mg/dL (0.55-1.3)
[2020-07-26 10:51] LABS: BILIRUBIN,TOTAL 0.4 mg/dL (0.2-1)
[2020-07-26] MEDS: LISINOPRIL 10 MG TABLET PO SCH (10:51)
[2020-07-26] MEDS: ENOXAPARIN NA (PORCINE) 40 MG/0.4 ML DISP.SYRIN SQ SCH (10:54)
[2020-07-26] MEDS ORDERED: PT OWN MED DRAWER 7, Y5N ONE (10:54)
[2020-07-26] MEDS: PRAMIPEXOLE DIHYDROCHLORIDE 1 MG TABLET PO SCH (10:54)
[2020-07-26] MEDS: SILVER SULFADIAZINE 1% TOP CREAM 50 GM JAR TP SCH (11:04)
[2020-07-26 11:05] LABS: POTASSIUM 4.1 mmol/L (3.5-5.1)
[2020-07-26 18:20] VITALS: BP 132/77; PULSE 93; TEMP 98.6
[2020-07-27] MEDS ORDERED: CEFTRIAXONE 1 GM in DEXTROSE 5%-WATER - 50 ML IVPB SCH (10:00)
== END 2020-07-26 18:30 | disposition home health service (06) | DRG 638 ==
LOC: JER 17:14 → JERBED 19:51 → J4S 23:51
PROVIDERS: ADMIT Hospitalist; ATTEND Nurse Practitioner Acute Care
PROC: 02HV33Z Insertion of Infusion Device into Superior Vena Cava, Percutaneous Approach (ICD-10-PCS; principal; 2020-07-26)
PROC: B548ZZA Ultrasonography of Superior Vena Cava, Guidance (ICD-10-PCS; 2020-07-26)
DX: E11.69 Type 2 diabetes mellitus with other specified complication (principal); L97.329 Non-pressure chronic ulcer of left ankle with unspecified severity; M86.8X7 Other osteomyelitis, ankle and foot; I10 Essential (primary) hypertension; E11.40 Type 2 diabetes mellitus with diabetic neuropathy, unspecified; I25.10 Atherosclerotic heart disease of native coronary artery without angina pectoris; Z79.4 Long term (current) use of insulin; Z20.822 Contact with and (suspected) exposure to COVID-19
CPT/HCPCS: 36415; 36569; 73610-TC-LT-FY; 73630-TC-LT; 73700-TC-RT; 80053; 82962; 83605; 83735; 84100; 85025; 85610; 85730; 86140; 86850; 86900; 86901; 87040; 93005; 93010; 99285-25; C9803; G0277; G0463-25; J0131; U0003

== ENCOUNTER 2021-07-08 15:34 | Inpatient (IN) | payer OTHER ==
[2021-07-08] MEDS ORDERED: PIPERACILLIN/TAZOB 4.5 GM 4.5 GM in DEXTROSE 5%-WATER 100 ML IVPB ONE (17:01)
[2021-07-08] MEDS ORDERED: VANCOMYCIN 1 GM in D5W (PRE-DOCKED) 1,000 MG/250 ML IVPB ONE (17:01)
[2021-07-08] MEDS ORDERED: PIPERACILLIN/TAZOB 4.5 GM 4.5 GM/100 ML BAG IVPB ONE (17:17)
[2021-07-08] MEDS ORDERED: VANCOMYCIN 1 GRAM (PRE-DOCKED) 1,000 MG/250 ML BAG IVPB ONE (17:17)
[2021-07-08 17:51] LABS: EOS % 0.8 % (0-4.5); HEMATOCRIT 34.4 % (32.4-45.2); HEMOGLOBIN 11.6 GM/dL (10.7-15.3); LYMPH % 24.3 % (8-40); MCHC 33.8 g/dl (32.0-36.0); MEAN CELL VOLUME 85.8 fl (80-96); MEAN PLT VOLUME 9.6 fl (7.5-11.1); MONO % 5.8 % (3.8-10.2); NEUT % 68.1 % (42.8-82.8); PLATELET COUNT 314 10^3/uL (134-434); RBC 4.01 M/mm3 (3.60-5.2); RDW 12.4 % (11.6-15.6); WHITE BLOOD COUNT 6.6 K/mm3 (4.0-10.0)
[2021-07-08 18:05] LABS: CHLORIDE 88 mmol/L (98-107); SODIUM 125 mmol/L (136-145)
[2021-07-08 18:07] LABS: ANION GAP 9 MMOL/L (8-16); CALCIUM 9.5 mg/dL (8.5-10.1); CO2 28 mmol/L (21-32)
[2021-07-08 18:08] LABS: BLOOD UREA NITROGEN 15.7 mg/dL (7-18)
[2021-07-08 18:10] LABS: INR 1.11 (0.83-1.09); PROTHROMBIN TIME (PATIENT) 12.8 SEC (9.7-13.0)
[2021-07-08 18:10] LABS: SGOT/AST 29 U/L (15-37)
[2021-07-08 18:11] LABS: SGPT/ALT 49 U/L (13-61)
[2021-07-08 18:12] LABS: BILIRUBIN,TOTAL 0.4 mg/dL (0.2-1); TOT PROT 6.8 g/dl (6.4-8.2)
[2021-07-08 18:13] LABS: ACTIVATED PTT 32.6 SECONDS (25.2-36.5)
[2021-07-08 18:13] LABS: ALK PHOS 233 U/L (45-117)
[2021-07-08] MEDS ORDERED: SODIUM CHLORIDE 0.9% 500 ML INFUS.BAG IV ONE ×2 (18:17→18:46)
[2021-07-08 18:36] LABS: GLUCOSE,RANDOM 678 mg/dL (74-106)
[2021-07-08] MEDS ORDERED: INSULIN (NOVOLOG) ASPART 100 UNITS/ML 10ML VIAL SQ ONE (18:55)
[2021-07-08] MEDS ORDERED: SENNOSIDES 8.6MG TABLET (FP) PO PRN (21:51)
[2021-07-08] MEDS ORDERED: DOCUSATE SODIUM 100 MG CAPSULE (FP) PO PRN (21:51)
[2021-07-08 22:11] LABS: VENOUS BASE EXCESS -1.9 mmol/L (-2-2); VENOUS O2 SATURATION 55.7 % (70-80); VENOUS PCO2 43.8 mmHg (38-52); VENOUS PH 7.351 (7.310-7.410)
[2021-07-08 22:47] LABS: URINE APPEARANCE CLEAR; URINE BILIRUBIN NEGATIVE (NEGATIVE); URINE COLOR YELLOW; URINE GLUCOSE (UA) 3+ (NEGATIVE); URINE KETONE NEGATIVE (NEGATIVE); URINE LEUK ESTERASE NEGATIVE (NEGATIVE); URINE NITRITE NEGATIVE (NEGATIVE); URINE PROTEIN NEGATIVE (NEGATIVE); URINE UROBILINOGEN 0.2 mg/dL (0.2-1.0)
[2021-07-09] MEDS: INSULIN SLIDING SCALE (NOVOLOG) 1 VIAL SQ SCH ×6 (00:47→21:38)
[2021-07-09] MEDS ORDERED: PIPERACILLIN/TAZOB 3.375 GM 3.375 GM/50 ML BAG IVPB ONE ×2 (00:49→09:30)
[2021-07-09] MEDS: PIPERACILLIN/TAZOB 3.375 GM 3.375 GM in DEXTROSE 5%-WATER - 50 ML IVPB SCH ×3 (03:03→17:48)
[2021-07-09] MEDS ORDERED: GABAPENTIN 100 MG CAPSULE ONE (05:05)
[2021-07-09] MEDS: GABAPENTIN 300 MG CAPSULE PO SCH ×3 (05:21→21:30)
[2021-07-09] MEDS ORDERED: VANCOMYCIN 1 GRAM (PRE-DOCKED) 1,000 MG/250 ML BAG IVPB SCH (06:00)
[2021-07-09 06:47] LABS: BASO % 0.4 % (0-2.0); EOS % 1.8 % (0-4.5); HEMATOCRIT 32.8 % (32.4-45.2); HEMOGLOBIN 11.1 GM/dL (10.7-15.3); LYMPH % 40.8 % (8-40); MCH 29.1 pg (25.7-33.7); MCHC 33.8 g/dl (32.0-36.0); MEAN CELL VOLUME 85.9 fl (80-96); MEAN PLT VOLUME 9.4 fl (7.5-11.1); MONO % 6.3 % (3.8-10.2); NEUT % 50.7 % (42.8-82.8); PLATELET COUNT 303 10^3/uL (134-434); RBC 3.82 M/mm3 (3.60-5.2); RDW 12.3 % (11.6-15.6); WHITE BLOOD COUNT 5.5 K/mm3 (4.0-10.0)
[2021-07-09 07:09] LABS: CALCIUM 8.7 mg/dL (8.5-10.1)
[2021-07-09 07:10] LABS: ALBUMIN 2.6 g/dl (3.4-5.0); BLOOD UREA NITROGEN 11.1 mg/dL (7-18); MAGNESIUM 1.3 mg/dL (1.8-2.4)
[2021-07-09 07:14] LABS: BILIRUBIN,TOTAL 0.6 mg/dL (0.2-1); CREATININE 0.8 mg/dL (0.55-1.3)
[2021-07-09 07:15] LABS: TOT PROT 5.9 g/dl (6.4-8.2)
[2021-07-09] MEDS ORDERED: ENOXAPARIN NA (PORCINE) 40 MG/0.4 ML DISP.SYRIN SQ ONE (09:30)
[2021-07-09] MEDS ORDERED: LISINOPRIL 20 MG TABLET ONE (09:30)
[2021-07-09] MEDS: ENOXAPARIN NA (PORCINE) 40 MG/0.4 ML DISP.SYRIN SQ SCH (09:38)
[2021-07-09] MEDS: LISINOPRIL 10 MG TABLET PO SCH (09:38)
[2021-07-09] MEDS: FLUTICASONE PROP 0.05% 16 GM NASAL SPRAY NS SCH (10:07)
[2021-07-09] MEDS ORDERED: MAGNESIUM SULF 50% (8.12 MEQ/2 ML-1 GM VIAL) IVPB ONE (10:33)
[2021-07-09 14:11] LABS: SARS-CoV-2 NAA Not Detected (Not Detected)
[2021-07-09] MEDS ORDERED: DEXTROSE 5%-WATER - 50 ML IVPB ONE (16:53)
[2021-07-09] MEDS ORDERED: PIPERACILLIN/TAZOBACTAM 3.375 GM VIAL IVPB ONE (16:53)
[2021-07-09] MEDS: VANCOMYCIN 1 GM in D5W (PRE-DOCKED) 1,000 MG/250 ML IVPB SCH (17:48)
[2021-07-09] MEDS ORDERED: SODIUM CHLORIDE 1,000 ML IV STA ×2 (17:51→18:47)
[2021-07-09 19:19] LABS: BASO % 0.6 % (0-2.0); EOS % 1.1 % (0-4.5); HEMATOCRIT 31.9 % (32.4-45.2); MCH 29.6 pg (25.7-33.7); MCHC 34.5 g/dl (32.0-36.0); MEAN CELL VOLUME 85.7 fl (80-96); MONO % 4.9 % (3.8-10.2); NEUT % 59.4 % (42.8-82.8); PLATELET COUNT 309 10^3/uL (134-434); RBC 3.72 M/mm3 (3.60-5.2); RDW 12.4 % (11.6-15.6); WHITE BLOOD COUNT 5.9 K/mm3 (4.0-10.0)
[2021-07-09 19:53] VITALS: BMI 27.1
[2021-07-09 20:21] LABS: BLOOD UREA NITROGEN 11.5 mg/dL (7-18); CALCIUM 8.6 mg/dL (8.5-10.1); MAGNESIUM 1.3 mg/dL (1.8-2.4)
[2021-07-09 20:23] LABS: ALBUMIN 2.4 g/dl (3.4-5.0)
[2021-07-09 20:24] LABS: PHOSPHOROUS 2.1 mg/dL (2.5-4.9)
[2021-07-09 20:26] LABS: BILIRUBIN,TOTAL 0.3 mg/dL (0.2-1); TOT PROT 5.8 g/dl (6.4-8.2)
[2021-07-09] MEDS ORDERED: QUEtiapine FUMARATE 25 MG TABLET ONE (20:37)
[2021-07-09] MEDS: ATORVASTATIN CA 40 MG TABLET (FP) PO SCH (21:30)
[2021-07-09] MEDS: QUEtiapine FUMARATE 50 MG TABLET PO SCH (21:30)
[2021-07-09] MEDS: INSULIN (LEVEMIR) 100 UNITS/ML UNITS SQ SCH (21:38)
[2021-07-10] MEDS ORDERED: MAGNESIUM SULF 50% (8.12 MEQ/2 ML-1 GM VIAL) IVPB ONE (00:08)
[2021-07-10] MEDS ORDERED: PIPERACILLIN/TAZOBACTAM 3.375 GM VIAL IVPB ONE ×3 (00:39→17:15)
[2021-07-10] MEDS ORDERED: DEXTROSE 5%-WATER - 50 ML IVPB ONE ×3 (00:39→17:15)
[2021-07-10] MEDS ORDERED: POTASSIUM PHOSPHATE 30 MM in SODIUM CHLORIDE 500 ML IVPB ONE (02:00)
[2021-07-10] MEDS: PIPERACILLIN/TAZOB 3.375 GM 3.375 GM in DEXTROSE 5%-WATER - 50 ML IVPB SCH ×3 (02:02→17:42)
[2021-07-10] MEDS: VANCOMYCIN 1 GM in D5W (PRE-DOCKED) 1,000 MG/250 ML IVPB SCH ×2 (05:14→18:24)
[2021-07-10] MEDS: GABAPENTIN 300 MG CAPSULE PO SCH ×3 (05:15→21:27)
[2021-07-10] MEDS: INSULIN SLIDING SCALE (NOVOLOG) 1 VIAL SQ SCH ×4 (06:11→21:29)
[2021-07-10] MEDS: INSULIN (LEVEMIR) 100 UNITS/ML UNITS SQ SCH ×3 (07:23→21:29)
[2021-07-10] MEDS: LISINOPRIL 10 MG TABLET PO SCH (11:53)
[2021-07-10] MEDS: ENOXAPARIN NA (PORCINE) 40 MG/0.4 ML DISP.SYRIN SQ SCH (11:53)
[2021-07-10 18:37] LABS: BASO % 0.9 % (0-2.0); EOS % 0.9 % (0-4.5); HEMATOCRIT 33.5 % (32.4-45.2); HEMOGLOBIN 11.3 GM/dL (10.7-15.3); LYMPH % 27.6 % (8-40); MCH 28.7 pg (25.7-33.7); MCHC 33.7 g/dl (32.0-36.0); MEAN CELL VOLUME 85.3 fl (80-96); MEAN PLT VOLUME 9.3 fl (7.5-11.1); MONO % 4.6 % (3.8-10.2); PLATELET COUNT 324 10^3/uL (134-434); RBC 3.93 M/mm3 (3.60-5.2); RDW 12.6 % (11.6-15.6)
[2021-07-10] MEDS: FLUTICASONE PROP 0.05% 16 GM NASAL SPRAY NS SCH (18:37)
[2021-07-10] MEDS: VANCOMYCIN/WATER BAGS 1,250 MG/250 ML BAG IVPB SCH (18:49)
[2021-07-10 18:58] LABS: CALCIUM 8.6 mg/dL (8.5-10.1)
[2021-07-10 18:59] LABS: ALBUMIN 2.6 g/dl (3.4-5.0); MAGNESIUM 1.5 mg/dL (1.8-2.4)
[2021-07-10 19:02] LABS: CREATININE 0.9 mg/dL (0.55-1.3); PHOSPHOROUS 2.9 mg/dL (2.5-4.9)
[2021-07-10 19:03] LABS: BILIRUBIN,TOTAL 0.2 mg/dL (0.2-1)
[2021-07-10] MEDS ORDERED: QUEtiapine FUMARATE 25 MG TABLET ONE (21:21)
[2021-07-10] MEDS: QUEtiapine FUMARATE 50 MG TABLET PO SCH (21:28)
[2021-07-10] MEDS: ATORVASTATIN CA 40 MG TABLET (FP) PO SCH (21:28)
[2021-07-10] MEDS ORDERED: VANCOMYCIN/WATER 1,250 MG/250 ML BAG IVPB SCH (22:00)
[2021-07-11] MEDS ORDERED: PIPERACILLIN/TAZOBACTAM 3.375 GM VIAL IVPB ONE ×3 (01:05→17:47)
[2021-07-11] MEDS ORDERED: DEXTROSE 5%-WATER - 50 ML IVPB ONE ×3 (01:06→17:47)
[2021-07-11] MEDS: PIPERACILLIN/TAZOB 3.375 GM 3.375 GM in DEXTROSE 5%-WATER - 50 ML IVPB SCH ×3 (01:57→18:11)
[2021-07-11] MEDS: VANCOMYCIN/WATER BAGS 1,250 MG/250 ML BAG IVPB SCH (06:03)
[2021-07-11] MEDS: GABAPENTIN 300 MG CAPSULE PO SCH ×3 (06:03→21:57)
[2021-07-11] MEDS: INSULIN SLIDING SCALE (NOVOLOG) 1 VIAL SQ SCH ×4 (06:11→21:56)
[2021-07-11] MEDS: INSULIN (LEVEMIR) 100 UNITS/ML UNITS SQ SCH ×2 (06:12→21:56)
[2021-07-11 09:33] LABS: BASO % 0.4 % (0-2.0); EOS % 1.2 % (0-4.5); LYMPH % 33.8 % (8-40); MCH 29.7 pg (25.7-33.7); MCHC 34.5 g/dl (32.0-36.0); MEAN CELL VOLUME 86.1 fl (80-96); MEAN PLT VOLUME 9.2 fl (7.5-11.1); MONO % 9.1 % (3.8-10.2); NEUT % 55.5 % (42.8-82.8); PLATELET COUNT 266 10^3/uL (134-434); RBC 3.71 M/mm3 (3.60-5.2); RDW 12.5 % (11.6-15.6); WHITE BLOOD COUNT 8.1 K/mm3 (4.0-10.0)
[2021-07-11 10:06] LABS: ALBUMIN 2.5 g/dl (3.4-5.0); CALCIUM 8.9 mg/dL (8.5-10.1)
[2021-07-11 10:07] LABS: BLOOD UREA NITROGEN 8.7 mg/dL (7-18); MAGNESIUM 1.6 mg/dL (1.8-2.4)
[2021-07-11 10:09] LABS: CREATININE 0.7 mg/dL (0.55-1.3); PHOSPHOROUS 3.5 mg/dL (2.5-4.9)
[2021-07-11 10:11] LABS: BILIRUBIN,TOTAL 0.5 mg/dL (0.2-1); TOT PROT 5.7 g/dl (6.4-8.2)
[2021-07-11] MEDS: LISINOPRIL 10 MG TABLET PO SCH (10:54)
[2021-07-11] MEDS: ENOXAPARIN NA (PORCINE) 40 MG/0.4 ML DISP.SYRIN SQ SCH (10:54)
[2021-07-11] MEDS ORDERED: MAGNESIUM OXIDE 400 MG TABLET (FP) PO ONE (11:51)
[2021-07-11] MEDS ORDERED: MAGNESIUM SULF 50% (8.12 MEQ/2 ML-1 GM VIAL) IVPB ONE (12:50)
[2021-07-11] MEDS: FLUTICASONE PROP 0.05% 16 GM NASAL SPRAY NS SCH (18:11)
[2021-07-11] MEDS ORDERED: QUEtiapine FUMARATE 25 MG TABLET ONE (21:47)
[2021-07-11] MEDS: QUEtiapine FUMARATE 50 MG TABLET PO SCH (21:57)
[2021-07-11] MEDS: ATORVASTATIN CA 40 MG TABLET (FP) PO SCH (21:57)
[2021-07-12] MEDS ORDERED: DEXTROSE 5%-WATER - 50 ML IVPB ONE ×3 (02:09→17:10)
[2021-07-12] MEDS ORDERED: PIPERACILLIN/TAZOBACTAM 3.375 GM VIAL IVPB ONE ×3 (02:09→17:09)
[2021-07-12] MEDS: PIPERACILLIN/TAZOB 3.375 GM 3.375 GM in DEXTROSE 5%-WATER - 50 ML IVPB SCH ×3 (02:16→17:24)
[2021-07-12] MEDS ORDERED: INSULIN (LEVEMIR) 100 UNITS/ML UNITS SQ SCH (06:00)
[2021-07-12] MEDS ORDERED: SODIUM CHLORIDE 500 ML IV STA (06:15)
[2021-07-12] MEDS: INSULIN SLIDING SCALE (NOVOLOG) 1 VIAL SQ SCH ×4 (06:23→21:17)
[2021-07-12] MEDS: GABAPENTIN 300 MG CAPSULE PO SCH ×3 (06:24→21:16)
[2021-07-12 09:35] LABS: BASO % 1.2 % (0-2.0); EOS % 1.7 % (0-4.5); HEMATOCRIT 37.4 % (32.4-45.2); HEMOGLOBIN 12.3 GM/dL (10.7-15.3); LYMPH % 44.9 % (8-40); MCH 28.9 pg (25.7-33.7); MCHC 32.8 g/dl (32.0-36.0); MEAN CELL VOLUME 88.3 fl (80-96); MEAN PLT VOLUME 9.5 fl (7.5-11.1); MONO % 6.5 % (3.8-10.2); NEUT % 45.7 % (42.8-82.8); PLATELET COUNT 348 10^3/uL (134-434); RBC 4.24 M/mm3 (3.60-5.2); RDW 12.5 % (11.6-15.6); WHITE BLOOD COUNT 5.6 K/mm3 (4.0-10.0)
[2021-07-12 10:04] LABS: CALCIUM 9.8 mg/dL (8.5-10.1); PHOSPHOROUS 4.3 mg/dL (2.5-4.9)
[2021-07-12 10:05] LABS: BLOOD UREA NITROGEN 9.6 mg/dL (7-18); MAGNESIUM 1.8 mg/dL (1.8-2.4)
[2021-07-12 10:08] LABS: CREATININE 0.7 mg/dL (0.55-1.3)
[2021-07-12] MEDS: ENOXAPARIN NA (PORCINE) 40 MG/0.4 ML DISP.SYRIN SQ SCH (10:08)
[2021-07-12] MEDS: LISINOPRIL 10 MG TABLET PO SCH (10:08)
[2021-07-12] MEDS: FLUTICASONE PROP 0.05% 16 GM NASAL SPRAY NS SCH (12:22)
[2021-07-12] MEDS ORDERED: QUEtiapine FUMARATE 25 MG TABLET ONE (21:02)
[2021-07-12] MEDS: QUEtiapine FUMARATE 50 MG TABLET PO SCH (21:16)
[2021-07-12] MEDS: ATORVASTATIN CA 40 MG TABLET (FP) PO SCH (21:17)
[2021-07-12] MEDS: INSULIN (LEVEMIR) 100 UNITS/ML UNITS SQ SCH (21:17)
[2021-07-13] MEDS ORDERED: PIPERACILLIN/TAZOBACTAM 3.375 GM VIAL IVPB ONE ×2 (00:47→10:43)
[2021-07-13] MEDS ORDERED: DEXTROSE 5%-WATER - 50 ML IVPB ONE ×2 (00:47→10:43)
[2021-07-13] MEDS: PIPERACILLIN/TAZOB 3.375 GM 3.375 GM in DEXTROSE 5%-WATER - 50 ML IVPB SCH ×2 (01:43→10:48)
[2021-07-13] MEDS: INSULIN SLIDING SCALE (NOVOLOG) 1 VIAL SQ SCH ×4 (06:37→21:48)
[2021-07-13] MEDS: INSULIN (LEVEMIR) 100 UNITS/ML UNITS SQ SCH ×2 (06:37→21:47)
[2021-07-13] MEDS: GABAPENTIN 300 MG CAPSULE PO SCH ×3 (06:37→21:47)
[2021-07-13 08:54] LABS: BASO % 0.5 % (0-2.0); EOS % 1.8 % (0-4.5); HEMATOCRIT 32.5 % (32.4-45.2); HEMOGLOBIN 10.9 GM/dL (10.7-15.3); LYMPH % 42.7 % (8-40); MCH 29.1 pg (25.7-33.7); MCHC 33.7 g/dl (32.0-36.0); MEAN CELL VOLUME 86.4 fl (80-96); MEAN PLT VOLUME 9.7 fl (7.5-11.1); PLATELET COUNT 319 10^3/uL (134-434); RBC 3.76 M/mm3 (3.60-5.2); RDW 12.8 % (11.6-15.6); WHITE BLOOD COUNT 5.3 K/mm3 (4.0-10.0)
[2021-07-13 09:56] LABS: BLOOD UREA NITROGEN 10.2 mg/dL (7-18)
[2021-07-13 09:59] LABS: CREATININE 0.5 mg/dL (0.55-1.3)
[2021-07-13 10:03] LABS: CALCIUM 8.8 mg/dL (8.5-10.1)
[2021-07-13] MEDS: LISINOPRIL 10 MG TABLET PO SCH (10:48)
[2021-07-13] MEDS: FLUTICASONE PROP 0.05% 16 GM NASAL SPRAY NS SCH (10:48)
[2021-07-13] MEDS: ENOXAPARIN NA (PORCINE) 40 MG/0.4 ML DISP.SYRIN SQ SCH (10:48)
[2021-07-13] MEDS ORDERED: DEXTROSE 5%-WATER 100 ML IVPB ONE (15:37)
[2021-07-13] MEDS: CEFTRIAXONE 2 GM in DEXTROSE 5%-WATER 100 ML IVPB SCH (15:49)
[2021-07-13] MEDS: Insulin (LOG) Aspart 100 UNITS/ML VIAL SQ SCH (17:35)
[2021-07-13] MEDS ORDERED: QUEtiapine FUMARATE 25 MG TABLET ONE (21:45)
[2021-07-13] MEDS: ATORVASTATIN CA 40 MG TABLET (FP) PO SCH (21:47)
[2021-07-13] MEDS: QUEtiapine FUMARATE 50 MG TABLET PO SCH (21:47)
[2021-07-13] MEDS ORDERED: ACETAMINOPHEN 325 MG TABLET (FP) PO PRN (23:24)
[2021-07-14] MEDS: INSULIN SLIDING SCALE (NOVOLOG) 1 VIAL SQ SCH ×4 (06:18→21:51)
[2021-07-14] MEDS: Insulin (LOG) Aspart 100 UNITS/ML VIAL SQ SCH ×3 (06:18→18:01)
[2021-07-14] MEDS: GABAPENTIN 300 MG CAPSULE PO SCH ×3 (06:19→21:50)
[2021-07-14] MEDS: INSULIN (LEVEMIR) 100 UNITS/ML UNITS SQ SCH ×2 (06:19→21:52)
[2021-07-14 10:05] LABS: BASO % 0.7 % (0-2.0); HEMATOCRIT 36.1 % (32.4-45.2); HEMOGLOBIN 12.1 GM/dL (10.7-15.3); LYMPH % 42.2 % (8-40); MCH 29.3 pg (25.7-33.7); MCHC 33.6 g/dl (32.0-36.0); MEAN CELL VOLUME 87.2 fl (80-96); MEAN PLT VOLUME 9.6 fl (7.5-11.1); MONO % 8.3 % (3.8-10.2); NEUT % 46.8 % (42.8-82.8); PLATELET COUNT 345 10^3/uL (134-434); RBC 4.14 M/mm3 (3.60-5.2); RDW 12.8 % (11.6-15.6)
[2021-07-14 10:25] LABS: CALCIUM 9.3 mg/dL (8.5-10.1)
[2021-07-14 10:26] LABS: BLOOD UREA NITROGEN 9.5 mg/dL (7-18)
[2021-07-14 10:29] LABS: CREATININE 0.6 mg/dL (0.55-1.3)
[2021-07-14] MEDS ORDERED: DEXTROSE 5%-WATER 100 ML IVPB ONE ×2 (10:50→10:52)
[2021-07-14] MEDS: FLUTICASONE PROP 0.05% 16 GM NASAL SPRAY NS SCH (10:58)
[2021-07-14] MEDS: LISINOPRIL 10 MG TABLET PO SCH (10:58)
[2021-07-14] MEDS: CEFTRIAXONE 2 GM in DEXTROSE 5%-WATER 100 ML IVPB SCH (10:58)
[2021-07-14] MEDS ORDERED: QUEtiapine FUMARATE 25 MG TABLET ONE (21:42)
[2021-07-14] MEDS: QUEtiapine FUMARATE 50 MG TABLET PO SCH (21:50)
[2021-07-14] MEDS: ATORVASTATIN CA 40 MG TABLET (FP) PO SCH (21:50)
[2021-07-15] MEDS: INSULIN (LEVEMIR) 100 UNITS/ML UNITS SQ SCH ×2 (06:57→21:58)
[2021-07-15] MEDS: Insulin (LOG) Aspart 100 UNITS/ML VIAL SQ SCH ×3 (06:58→17:42)
[2021-07-15] MEDS: INSULIN SLIDING SCALE (NOVOLOG) 1 VIAL SQ SCH ×4 (06:58→21:58)
[2021-07-15] MEDS: GABAPENTIN 300 MG CAPSULE PO SCH ×3 (06:58→21:57)
[2021-07-15 09:25] LABS: BASO % 0.8 % (0-2.0); EOS % 1.7 % (0-4.5); HEMATOCRIT 36.1 % (32.4-45.2); HEMOGLOBIN 11.8 GM/dL (10.7-15.3); LYMPH % 39.3 % (8-40); MCH 28.5 pg (25.7-33.7); MCHC 32.6 g/dl (32.0-36.0); MEAN CELL VOLUME 87.3 fl (80-96); MEAN PLT VOLUME 9.6 fl (7.5-11.1); MONO % 6.5 % (3.8-10.2); NEUT % 51.7 % (42.8-82.8); PLATELET COUNT 361 10^3/uL (134-434); RBC 4.13 M/mm3 (3.60-5.2); RDW 12.8 % (11.6-15.6); WHITE BLOOD COUNT 5.4 K/mm3 (4.0-10.0)
[2021-07-15] MEDS ORDERED: DEXTROSE 5%-WATER 100 ML IVPB ONE (09:45)
[2021-07-15 09:50] LABS: BLOOD UREA NITROGEN 12.4 mg/dL (7-18); CALCIUM 9.7 mg/dL (8.5-10.1)
[2021-07-15 09:53] LABS: CREATININE 0.7 mg/dL (0.55-1.3)
[2021-07-15] MEDS: FLUTICASONE PROP 0.05% 16 GM NASAL SPRAY NS SCH (09:55)
[2021-07-15] MEDS: CEFTRIAXONE 2 GM in DEXTROSE 5%-WATER 100 ML IVPB SCH (09:55)
[2021-07-15 12:08] LABS: SARS-CoV-2 NAA Not Detected (Not Detected)
[2021-07-15] MEDS ORDERED: QUEtiapine FUMARATE 25 MG TABLET ONE (21:51)
[2021-07-15] MEDS: ATORVASTATIN CA 40 MG TABLET (FP) PO SCH (21:57)
[2021-07-15] MEDS: QUEtiapine FUMARATE 50 MG TABLET PO SCH (21:57)
[2021-07-16] MEDS: GABAPENTIN 300 MG CAPSULE PO SCH ×3 (06:54→21:46)
[2021-07-16] MEDS: INSULIN (LEVEMIR) 100 UNITS/ML UNITS SQ SCH (06:55)
[2021-07-16] MEDS: Insulin (LOG) Aspart 100 UNITS/ML VIAL SQ SCH ×2 (06:55→12:12)
[2021-07-16] MEDS: INSULIN SLIDING SCALE (NOVOLOG) 1 VIAL SQ SCH ×4 (06:56→21:47)
[2021-07-16] MEDS ORDERED: DEXTROSE 5%-WATER 100 ML IVPB ONE (10:01)
[2021-07-16] MEDS: CEFTRIAXONE 2 GM in DEXTROSE 5%-WATER 100 ML IVPB SCH (10:09)
[2021-07-16] MEDS: ENOXAPARIN NA (PORCINE) 40 MG/0.4 ML DISP.SYRIN SQ SCH (10:09)
[2021-07-16] MEDS: FLUTICASONE PROP 0.05% 16 GM NASAL SPRAY NS SCH (10:10)
[2021-07-16 10:50] LABS: EOS % 1.7 % (0-4.5); HEMATOCRIT 35.2 % (32.4-45.2); HEMOGLOBIN 11.9 GM/dL (10.7-15.3); MCH 29.5 pg (25.7-33.7); MEAN CELL VOLUME 86.9 fl (80-96); MEAN PLT VOLUME 9.4 fl (7.5-11.1); MONO % 9.3 % (3.8-10.2); PLATELET COUNT 345 10^3/uL (134-434); RBC 4.05 M/mm3 (3.60-5.2); RDW 12.8 % (11.6-15.6)
[2021-07-16 11:07] LABS: CALCIUM 9.8 mg/dL (8.5-10.1)
[2021-07-16 11:08] LABS: BLOOD UREA NITROGEN 12.1 mg/dL (7-18); MAGNESIUM 1.6 mg/dL (1.8-2.4)
[2021-07-16 11:11] LABS: CREATININE 0.6 mg/dL (0.55-1.3); PHOSPHOROUS 3.8 mg/dL (2.5-4.9)
[2021-07-16] MEDS: LISINOPRIL 10 MG TABLET PO SCH (12:15)
[2021-07-16] MEDS ORDERED: MAGNESIUM SULF 50% (8.12 MEQ/2 ML-1 GM VIAL) IVPB ONE (12:18)
[2021-07-16] MEDS ORDERED: Insulin (LOG) Aspart 100 UNITS/ML VIAL SQ SCH (12:21)
[2021-07-16] MEDS ORDERED: QUEtiapine FUMARATE 25 MG TABLET ONE (21:34)
[2021-07-16] MEDS: ATORVASTATIN CA 40 MG TABLET (FP) PO SCH (21:46)
[2021-07-16] MEDS: QUEtiapine FUMARATE 50 MG TABLET PO SCH (21:50)
[2021-07-16] MEDS ORDERED: INSULIN (LEVEMIR) 100 UNITS/ML UNITS SQ SCH (22:00)
[2021-07-17] MEDS: GABAPENTIN 300 MG CAPSULE PO SCH ×3 (05:40→21:34)
[2021-07-17] MEDS: INSULIN (LEVEMIR) 100 UNITS/ML UNITS SQ SCH (06:14)
[2021-07-17] MEDS: INSULIN SLIDING SCALE (NOVOLOG) 1 VIAL SQ SCH ×4 (06:14→21:35)
[2021-07-17] MEDS: Insulin (LOG) Aspart 100 UNITS/ML VIAL SQ SCH ×3 (06:14→18:01)
[2021-07-17 10:20] LABS: BASO % 1.1 % (0-2.0); EOS % 1.8 % (0-4.5); HEMATOCRIT 35.4 % (32.4-45.2); HEMOGLOBIN 12.1 GM/dL (10.7-15.3); LYMPH % 40.8 % (8-40); MCH 29.4 pg (25.7-33.7); MEAN CELL VOLUME 86.4 fl (80-96); MEAN PLT VOLUME 9.2 fl (7.5-11.1); MONO % 7.5 % (3.8-10.2); NEUT % 48.8 % (42.8-82.8); PLATELET COUNT 345 10^3/uL (134-434); RDW 12.8 % (11.6-15.6); WHITE BLOOD COUNT 5.3 K/mm3 (4.0-10.0)
[2021-07-17 10:40] LABS: CALCIUM 9.3 mg/dL (8.5-10.1)
[2021-07-17 10:41] LABS: BLOOD UREA NITROGEN 14.1 mg/dL (7-18); MAGNESIUM 1.6 mg/dL (1.8-2.4)
[2021-07-17 10:44] LABS: CREATININE 0.7 mg/dL (0.55-1.3)
[2021-07-17] MEDS ORDERED: DEXTROSE 5%-WATER 100 ML IVPB ONE (12:21)
[2021-07-17] MEDS: CEFTRIAXONE 2 GM in DEXTROSE 5%-WATER 100 ML IVPB SCH (12:31)
[2021-07-17] MEDS: ENOXAPARIN NA (PORCINE) 40 MG/0.4 ML DISP.SYRIN SQ SCH (12:33)
[2021-07-17] MEDS: FLUTICASONE PROP 0.05% 16 GM NASAL SPRAY NS SCH (12:34)
[2021-07-17] MEDS: LISINOPRIL 10 MG TABLET PO SCH (13:00)
[2021-07-17] MEDS: ACETAMINOPHEN 1000 MG/100 ML BAG IVPB SCH ×2 (18:23→21:36)
[2021-07-17] MEDS ORDERED: QUEtiapine FUMARATE 25 MG TABLET ONE (21:32)
[2021-07-17] MEDS: ATORVASTATIN CA 40 MG TABLET (FP) PO SCH (21:34)
[2021-07-17] MEDS: QUEtiapine FUMARATE 50 MG TABLET PO SCH (21:35)
[2021-07-18] MEDS: ACETAMINOPHEN 1000 MG/100 ML BAG IVPB SCH ×2 (04:32→09:08)
[2021-07-18] MEDS: GABAPENTIN 300 MG CAPSULE PO SCH ×3 (06:19→21:56)
[2021-07-18] MEDS: INSULIN (LEVEMIR) 100 UNITS/ML UNITS SQ SCH (06:20)
[2021-07-18] MEDS: INSULIN SLIDING SCALE (NOVOLOG) 1 VIAL SQ SCH ×4 (06:20→21:55)
[2021-07-18] MEDS ORDERED: DEXTROSE 5%-WATER 100 ML IVPB ONE (09:00)
[2021-07-18] MEDS: ENOXAPARIN NA (PORCINE) 40 MG/0.4 ML DISP.SYRIN SQ SCH (09:07)
[2021-07-18] MEDS: FLUTICASONE PROP 0.05% 16 GM NASAL SPRAY NS SCH (09:08)
[2021-07-18] MEDS: LISINOPRIL 10 MG TABLET PO SCH (09:08)
[2021-07-18] MEDS: CEFTRIAXONE 2 GM in DEXTROSE 5%-WATER 100 ML IVPB SCH (09:08)
[2021-07-18] MEDS: Insulin (LOG) Aspart 100 UNITS/ML VIAL SQ SCH ×3 (09:08→16:33)
[2021-07-18 09:41] LABS: BASO % 1.1 % (0-2.0); EOS % 1.6 % (0-4.5); HEMATOCRIT 34.5 % (32.4-45.2); HEMOGLOBIN 11.8 GM/dL (10.7-15.3); LYMPH % 43.3 % (8-40); MCH 29.7 pg (25.7-33.7); MCHC 34.4 g/dl (32.0-36.0); MEAN CELL VOLUME 86.4 fl (80-96); MEAN PLT VOLUME 9.5 fl (7.5-11.1); MONO % 7.9 % (3.8-10.2); NEUT % 46.1 % (42.8-82.8); PLATELET COUNT 320 10^3/uL (134-434); RBC 3.99 M/mm3 (3.60-5.2); RDW 12.6 % (11.6-15.6); WHITE BLOOD COUNT 4.7 K/mm3 (4.0-10.0)
[2021-07-18 09:59] LABS: BLOOD UREA NITROGEN 19.3 mg/dL (7-18); CALCIUM 9.1 mg/dL (8.5-10.1)
[2021-07-18 10:03] LABS: CREATININE 0.8 mg/dL (0.55-1.3)
[2021-07-18] MEDS: QUEtiapine FUMARATE 50 MG TABLET PO SCH (21:56)
[2021-07-18] MEDS: ATORVASTATIN CA 40 MG TABLET (FP) PO SCH (21:56)
[2021-07-18] MEDS ORDERED: INSULIN (LEVEMIR) 100 UNITS/ML UNITS SQ SCH (22:00)
[2021-07-19] MEDS: INSULIN (LEVEMIR) 100 UNITS/ML UNITS SQ SCH (06:48)
[2021-07-19] MEDS: Insulin (LOG) Aspart 100 UNITS/ML VIAL SQ SCH ×2 (06:48→12:12)
[2021-07-19] MEDS: GABAPENTIN 300 MG CAPSULE PO SCH ×2 (06:49→13:01)
[2021-07-19] MEDS: INSULIN SLIDING SCALE (NOVOLOG) 1 VIAL SQ SCH ×2 (06:49→12:12)
[2021-07-19 07:14] VITALS: TEMP 97.7
[2021-07-19] MEDS ORDERED: DEXTROSE 5%-WATER 100 ML IVPB ONE (08:40)
[2021-07-19] MEDS: ENOXAPARIN NA (PORCINE) 40 MG/0.4 ML DISP.SYRIN SQ SCH (09:22)
[2021-07-19] MEDS: LISINOPRIL 10 MG TABLET PO SCH (10:21)
[2021-07-19] MEDS: FLUTICASONE PROP 0.05% 16 GM NASAL SPRAY NS SCH (10:21)
[2021-07-19] MEDS: CEFTRIAXONE 2 GM in DEXTROSE 5%-WATER 100 ML IVPB SCH (10:41)
[2021-07-19] MEDS ORDERED: Insulin (LOG) Aspart 100 UNITS/ML VIAL SQ SCH (11:21)
[2021-07-19 13:04] VITALS: BP 120/67; PULSE 89
[2021-07-20] MEDS ORDERED: INSULIN (LEVEMIR) 100 UNITS/ML UNITS SQ SCH (07:00)
== END 2021-07-19 16:34 | DRG 638 ==
LOC: JER 15:34 → JERBED 18:02 → J5S 07-09 10:25
PROVIDERS: ADMIT Internal Medicine; ATTEND Internal Medicine
PROC: 0HBNXZZ Excision of Left Foot Skin, External Approach (ICD-10-PCS; principal; 2021-07-10)
PROC: 05HB33Z Insertion of Infusion Device into Right Basilic Vein, Percutaneous Approach (ICD-10-PCS; 2021-07-19)
PROC: B51MZZA Fluoroscopy of Right Upper Extremity Veins, Guidance (ICD-10-PCS; 2021-07-19)
DX: E11.69 Type 2 diabetes mellitus with other specified complication (principal); L03.116 Cellulitis of left lower limb; L02.612 Cutaneous abscess of left foot; E87.1 Hypo-osmolality and hyponatremia; L02.416 Cutaneous abscess of left lower limb; M86.9 Osteomyelitis, unspecified; E11.621 Type 2 diabetes mellitus with foot ulcer; E11.40 Type 2 diabetes mellitus with diabetic neuropathy, unspecified; E11.65 Type 2 diabetes mellitus with hyperglycemia; I10 Essential (primary) hypertension; E78.5 Hyperlipidemia, unspecified; E83.39 Other disorders of phosphorus metabolism; E83.42 Hypomagnesemia
CPT/HCPCS: 36415; 36569; 73610-TC-LT-FY; 73630-TC-LT; 73720-LT; 80048; 80053; 80061; 81003; 82010; 82436; 82803; 82962; 82977; 83036; 83735; 83930; 83935; 84100; 84133; 84300; 85025; 85610; 85651; 85730; 86140; 87040; 87070; 87186; 87205; 93005; 93010; 97116-GP; 97161-GP; 99285-25; C9803; G0480; U0003; U0005

== ENCOUNTER 2021-08-25 09:56 | Observation (INO) | payer OTHER ==
[2021-08-25 11:23] LABS: BASO % 0.9 % (0-2.0); EOS % 1.7 % (0-4.5); LYMPH % 37.1 % (8-40); MCH 28.9 pg (25.7-33.7); MCHC 34.3 g/dl (32.0-36.0); MEAN CELL VOLUME 84.3 fl (80-96); MONO % 6.7 % (3.8-10.2); NEUT % 53.6 % (42.8-82.8); PLATELET COUNT 185 10^3/uL (134-434); RDW 12.7 % (11.6-15.6); WHITE BLOOD COUNT 5.3 K/mm3 (4.0-10.0)
[2021-08-25 11:32] LABS: INR 1.06 (0.83-1.09); PROTHROMBIN TIME (PATIENT) 12.2 SEC (9.7-13.0)
[2021-08-25 11:34] LABS: ACTIVATED PTT 34.2 SECONDS (25.2-36.5)
[2021-08-25 11:44] LABS: CALCIUM 10.6 mg/dL (8.5-10.1)
[2021-08-25 11:45] LABS: BLOOD UREA NITROGEN 18.6 mg/dL (7-18)
[2021-08-25 11:48] LABS: CREATININE 0.8 mg/dL (0.55-1.3)
[2021-08-25 11:49] LABS: BILIRUBIN,TOTAL 0.5 mg/dL (0.2-1)
[2021-08-25 11:50] LABS: TOT PROT 7.6 g/dl (6.4-8.2)
[2021-08-25 12:13] LABS: ERYTHROCYTE SEDIMENTATION RATE 29 mm/hr (0-30)
[2021-08-25] MEDS ORDERED: VANCOMYCIN 1 GM in D5W (PRE-DOCKED) 1,000 MG/250 ML IVPB ONE (12:43)
[2021-08-25] MEDS ORDERED: PIPERACILLIN/TAZOB 4.5 GM 4.5 GM in DEXTROSE 5%-WATER 100 ML IVPB ONE (12:44)
[2021-08-25] MEDS ORDERED: VANCOMYCIN 1 GRAM (PRE-DOCKED) 1,000 MG/250 ML BAG IVPB ONE (12:53)
[2021-08-25] MEDS ORDERED: PIPERACILLIN/TAZOB 4.5 GM 4.5 GM/100 ML BAG IVPB ONE (12:53)
[2021-08-25] MEDS ORDERED: SODIUM CHLORIDE 1,000 ML IV SCH (13:00)
[2021-08-25] MEDS ORDERED: ACETAMINOPHEN 325 MG TABLET (FP) PO ONE (13:33)
[2021-08-25] MEDS ORDERED: ACETAMINOPHEN 325 MG TABLET (FP) ONE (14:34)
[2021-08-25] MEDS ORDERED: PIPERACILLIN/TAZOB 3.375 GM 3.375 GM in DEXTROSE 5%-WATER - 50 ML IVPB SCH (18:00)
[2021-08-26] MEDS ORDERED: PIPERACILLIN/TAZOB 3.375 GM 3.375 GM/50 ML BAG IVPB ONE (01:45)
[2021-08-26] MEDS: INSULIN (LEVEMIR) 100 UNITS/ML UNITS SQ SCH ×3 (01:47→23:25)
[2021-08-26] MEDS: PIPERACILLIN/TAZOB 3.375 GM 3.375 GM in DEXTROSE 5%-WATER - 50 ML IVPB SCH ×5 (02:00→17:56)
[2021-08-26] MEDS ORDERED: PIPERACILLIN/TAZOBACTAM 3.375 GM VIAL IVPB ONE ×3 (02:40→17:09)
[2021-08-26] MEDS ORDERED: DEXTROSE 5%-WATER - 50 ML IVPB ONE ×3 (02:40→17:09)
[2021-08-26 03:11] VITALS: BMI 27.5
[2021-08-26] MEDS: INSULIN SLIDING SCALE (NOVOLOG) 1 VIAL SQ SCH ×4 (06:08→16:18)
[2021-08-26] MEDS: GABAPENTIN 300 MG CAPSULE PO SCH ×3 (06:08→23:00)
[2021-08-26 08:02] LABS: BASO % 0.8 % (0-2.0); EOS % 2.6 % (0-4.5); HEMATOCRIT 34.6 % (32.4-45.2); HEMOGLOBIN 12.1 GM/dL (10.7-15.3); LYMPH % 39.6 % (8-40); MCH 29.1 pg (25.7-33.7); MCHC 34.9 g/dl (32.0-36.0); MEAN CELL VOLUME 83.5 fl (80-96); MEAN PLT VOLUME 9.7 fl (7.5-11.1); MONO % 7.4 % (3.8-10.2); NEUT % 49.6 % (42.8-82.8); PLATELET COUNT 170 10^3/uL (134-434); RBC 4.14 M/mm3 (3.60-5.2); RDW 12.6 % (11.6-15.6); WHITE BLOOD COUNT 4.3 K/mm3 (4.0-10.0)
[2021-08-26 08:16] LABS: ALBUMIN 3.4 g/dl (3.4-5.0); BLOOD UREA NITROGEN 16.3 mg/dL (7-18); MAGNESIUM 1.6 mg/dL (1.8-2.4)
[2021-08-26 08:19] LABS: CREATININE 0.7 mg/dL (0.55-1.3); PHOSPHOROUS 4.1 mg/dL (2.5-4.9)
[2021-08-26 08:20] LABS: TOT PROT 6.4 g/dl (6.4-8.2)
[2021-08-26 08:21] LABS: BILIRUBIN,TOTAL 0.6 mg/dL (0.2-1)
[2021-08-26] MEDS: FUROSEMIDE 20 MG TABLET (FP) PO SCH (09:32)
[2021-08-26] MEDS: LISINOPRIL 10 MG TABLET PO SCH (09:32)
[2021-08-26] MEDS: CYCLOBENZAPRINE HCL 5 MG TABLET PO SCH (09:32)
[2021-08-26] MEDS ORDERED: PNEUMOC 13-VAL CONJ-DIP CRM/PF 0.5 ML DISP.SYRIN IM ONE (10:00)
[2021-08-26] MEDS ORDERED: SENNOSIDES 8.6MG TABLET (FP) PO PRN (11:29)
[2021-08-26] MEDS: ACETAMINOPHEN 325 MG TABLET (FP) PO PRN ×2 (13:17→23:06)
[2021-08-26 15:07] LABS: SARS-CoV-2 NAA Not Detected (Not Detected)
[2021-08-26] MEDS ORDERED: BASAGLAR U SQ SCH (22:00)
[2021-08-26] MEDS: HEPARIN NA (PORCINE) 5,000 UNITS/ML 1ML VIAL SQ SCH (23:00)
[2021-08-26] MEDS: ATORVASTATIN CA 40 MG TABLET (FP) PO SCH (23:00)
[2021-08-27] MEDS ORDERED: PIPERACILLIN/TAZOBACTAM 3.375 GM VIAL IVPB ONE ×3 (02:11→16:59)
[2021-08-27] MEDS ORDERED: DEXTROSE 5%-WATER - 50 ML IVPB ONE ×3 (02:11→16:59)
[2021-08-27] MEDS: PIPERACILLIN/TAZOB 3.375 GM 3.375 GM in DEXTROSE 5%-WATER - 50 ML IVPB SCH ×3 (02:43→17:08)
[2021-08-27] MEDS: GABAPENTIN 300 MG CAPSULE PO SCH ×3 (06:21→21:22)
[2021-08-27] MEDS: INSULIN SLIDING SCALE (NOVOLOG) 1 VIAL SQ SCH ×3 (06:26→17:11)
[2021-08-27] MEDS: INSULIN (LEVEMIR) 100 UNITS/ML UNITS SQ SCH ×2 (06:27→21:22)
[2021-08-27] MEDS: HEPARIN NA (PORCINE) 5,000 UNITS/ML 1ML VIAL SQ SCH ×2 (09:06→21:21)
[2021-08-27] MEDS: CYCLOBENZAPRINE HCL 5 MG TABLET PO SCH (09:06)
[2021-08-27] MEDS: FUROSEMIDE 20 MG TABLET (FP) PO SCH (09:07)
[2021-08-27] MEDS: LISINOPRIL 10 MG TABLET PO SCH (09:09)
[2021-08-27] MEDS: ATORVASTATIN CA 40 MG TABLET (FP) PO SCH (21:22)
[2021-08-27] MEDS: ACETAMINOPHEN 325 MG TABLET (FP) PO PRN (21:26)
[2021-08-28] MEDS ORDERED: PIPERACILLIN/TAZOBACTAM 3.375 GM VIAL IVPB ONE ×2 (01:08→08:03)
[2021-08-28] MEDS ORDERED: DEXTROSE 5%-WATER - 50 ML IVPB ONE ×2 (01:08→08:03)
[2021-08-28] MEDS: PIPERACILLIN/TAZOB 3.375 GM 3.375 GM in DEXTROSE 5%-WATER - 50 ML IVPB SCH ×2 (01:36→09:28)
[2021-08-28] MEDS: ACETAMINOPHEN 325 MG TABLET (FP) PO PRN (03:06)
[2021-08-28] MEDS: GABAPENTIN 300 MG CAPSULE PO SCH ×3 (05:28→22:33)
[2021-08-28] MEDS: INSULIN (LEVEMIR) 100 UNITS/ML UNITS SQ SCH ×2 (06:10→22:34)
[2021-08-28] MEDS: INSULIN SLIDING SCALE (NOVOLOG) 1 VIAL SQ SCH ×3 (06:10→16:18)
[2021-08-28] MEDS: HEPARIN NA (PORCINE) 5,000 UNITS/ML 1ML VIAL SQ SCH ×2 (09:21→22:33)
[2021-08-28 09:26] LABS: HEMATOCRIT 38.1 % (32.4-45.2); HEMOGLOBIN 13.1 GM/dL (10.7-15.3); MCH 29.1 pg (25.7-33.7); MCHC 34.4 g/dl (32.0-36.0); MEAN CELL VOLUME 84.5 fl (80-96); MEAN PLT VOLUME 10.2 fl (7.5-11.1); PLATELET COUNT 216 10^3/uL (134-434); RBC 4.51 M/mm3 (3.60-5.2); RDW 12.8 % (11.6-15.6); WHITE BLOOD COUNT 5.1 K/mm3 (4.0-10.0)
[2021-08-28] MEDS: LISINOPRIL 10 MG TABLET PO SCH (09:26)
[2021-08-28] MEDS: CYCLOBENZAPRINE HCL 5 MG TABLET PO SCH (09:26)
[2021-08-28] MEDS: FUROSEMIDE 20 MG TABLET (FP) PO SCH (09:26)
[2021-08-28 09:33] LABS: CALCIUM 9.8 mg/dL (8.5-10.1)
[2021-08-28 09:34] LABS: BLOOD UREA NITROGEN 13.3 mg/dL (7-18); MAGNESIUM 1.4 mg/dL (1.8-2.4)
[2021-08-28 09:37] LABS: CREATININE 0.8 mg/dL (0.55-1.3)
[2021-08-28] MEDS ORDERED: MAGNESIUM 1GM/D5W 100ML - 100 ML IVPB IVPB ONE (10:45)
[2021-08-28] MEDS: AMOX TR/POT CLAV 875MG/125MG TABLETS (FP) PO SCH (17:13)
[2021-08-28] MEDS: ATORVASTATIN CA 40 MG TABLET (FP) PO SCH (22:33)
[2021-08-29] MEDS: ACETAMINOPHEN 325 MG TABLET (FP) PO PRN ×2 (00:29→22:49)
[2021-08-29] MEDS: GABAPENTIN 300 MG CAPSULE PO SCH ×3 (06:20→22:50)
[2021-08-29] MEDS: INSULIN (LEVEMIR) 100 UNITS/ML UNITS SQ SCH ×2 (06:21→22:51)
[2021-08-29] MEDS ORDERED: INSULIN (NOVOLOG) ASPART 100 UNITS/ML 10ML VIAL ONE ×2 (06:24→11:29)
[2021-08-29] MEDS: INSULIN SLIDING SCALE (NOVOLOG) 1 VIAL SQ SCH ×3 (06:25→17:00)
[2021-08-29] MEDS: FUROSEMIDE 20 MG TABLET (FP) PO SCH (09:52)
[2021-08-29] MEDS: HEPARIN NA (PORCINE) 5,000 UNITS/ML 1ML VIAL SQ SCH ×2 (09:52→22:49)
[2021-08-29] MEDS: CYCLOBENZAPRINE HCL 5 MG TABLET PO SCH (09:52)
[2021-08-29] MEDS: LISINOPRIL 10 MG TABLET PO SCH (09:52)
[2021-08-29] MEDS: AMOX TR/POT CLAV 875MG/125MG TABLETS (FP) PO SCH ×2 (09:52→17:13)
[2021-08-29] MEDS: ATORVASTATIN CA 40 MG TABLET (FP) PO SCH (22:51)
[2021-08-30] MEDS: INSULIN SLIDING SCALE (NOVOLOG) 1 VIAL SQ SCH ×3 (06:29→17:02)
[2021-08-30] MEDS: GABAPENTIN 300 MG CAPSULE PO SCH ×3 (06:30→22:46)
[2021-08-30] MEDS: INSULIN (LEVEMIR) 100 UNITS/ML UNITS SQ SCH ×2 (06:30→22:49)
[2021-08-30] MEDS: AMOX TR/POT CLAV 875MG/125MG TABLETS (FP) PO SCH ×2 (08:58→17:10)
[2021-08-30] MEDS: LISINOPRIL 10 MG TABLET PO SCH (08:59)
[2021-08-30] MEDS: CYCLOBENZAPRINE HCL 5 MG TABLET PO SCH (08:59)
[2021-08-30] MEDS: HEPARIN NA (PORCINE) 5,000 UNITS/ML 1ML VIAL SQ SCH ×2 (08:59→22:45)
[2021-08-30] MEDS: FUROSEMIDE 20 MG TABLET (FP) PO SCH (10:44)
[2021-08-30 16:09] LABS: SARS-CoV-2 NAA Not Detected (Not Detected)
[2021-08-30] MEDS: ATORVASTATIN CA 40 MG TABLET (FP) PO SCH (22:45)
[2021-08-30] MEDS: ACETAMINOPHEN 325 MG TABLET (FP) PO PRN (22:46)
[2021-08-31] MEDS: GABAPENTIN 300 MG CAPSULE PO SCH ×2 (06:25→13:38)
[2021-08-31] MEDS: INSULIN SLIDING SCALE (NOVOLOG) 1 VIAL SQ SCH ×3 (06:28→16:08)
[2021-08-31] MEDS: INSULIN (LEVEMIR) 100 UNITS/ML UNITS SQ SCH (06:29)
[2021-08-31] MEDS: AMOX TR/POT CLAV 875MG/125MG TABLETS (FP) PO SCH ×2 (08:28→16:50)
[2021-08-31] MEDS: CYCLOBENZAPRINE HCL 5 MG TABLET PO SCH (09:41)
[2021-08-31] MEDS: HEPARIN NA (PORCINE) 5,000 UNITS/ML 1ML VIAL SQ SCH (09:42)
[2021-08-31] MEDS: FUROSEMIDE 20 MG TABLET (FP) PO SCH ×2 (09:42→10:02)
[2021-08-31] MEDS: LISINOPRIL 10 MG TABLET PO SCH ×2 (09:42→10:02)
[2021-08-31 14:40] VITALS: BP 125/72; PULSE 105; TEMP 98.2
== END 2021-08-31 17:30 ==
LOC: JER 09:56 → JERBED 12:34 → J7W 08-26 02:30
PROVIDERS: ADMIT Internal Medicine; ATTEND Family Medicine
PROC: 3E023GC Introduction of Other Therapeutic Substance into Muscle, Percutaneous Approach (ICD-10-PCS; principal; 2021-08-25)
PROC: 3E013VG Introduction of Insulin into Subcutaneous Tissue, Percutaneous Approach (ICD-10-PCS; 2021-08-25)
PROC: 3E03329 Introduction of Other Anti-infective into Peripheral Vein, Percutaneous Approach (ICD-10-PCS; 2021-08-25)
PROC: 3E033GC Introduction of Other Therapeutic Substance into Peripheral Vein, Percutaneous Approach (ICD-10-PCS; 2021-08-25)
PROC: 3E0337Z Introduction of Electrolytic and Water Balance Substance into Peripheral Vein, Percutaneous Approach (ICD-10-PCS; 2021-08-25)
DX: L03.116 Cellulitis of left lower limb (principal); Z78.9 Other specified health status; I10 Essential (primary) hypertension; E78.5 Hyperlipidemia, unspecified; E11.40 Type 2 diabetes mellitus with diabetic neuropathy, unspecified; Z96.41 Presence of insulin pump (external) (internal); R56.9 Unspecified convulsions; G20 Parkinson's disease; G30.9 Alzheimer's disease, unspecified; F02.80 Dementia in other diseases classified elsewhere, unspecified severity, without behavioral disturbance, psychotic disturbance, mood disturbance, and anxiety; F05 Delirium due to known physiological condition; M86.9 Osteomyelitis, unspecified; Z29.9 Encounter for prophylactic measures, unspecified; Z86.73 Personal history of transient ischemic attack (TIA), and cerebral infarction without residual deficits; S91.302A Unspecified open wound, left foot, initial encounter; R42 Dizziness and giddiness; X58.XXXA Exposure to other specified factors, initial encounter; Y93.89 Activity, other specified; Y92.89 Other specified places as the place of occurrence of the external cause
CPT/HCPCS: 11042; 36415; 73610-TC-LT-FY; 73630-TC-LT; 73720-LT; 80048; 80053; 82330; 82962; 83036; 83735; 83970; 84100; 85025; 85027; 85610; 85651; 85730; 86140; 86850; 86900; 86901; 87040; 87070; 87077; 87205; 96361; 96365; 96372; 96375; 97116-GP; 99285-25; C9803-CS; G0378; J1644; U0003; U0005

== ENCOUNTER 2021-10-19 13:28 | Inpatient (IN) | payer OTHER ==
[2021-10-19 15:54] LABS: BASO % 0.4 % (0-2.0); EOS % 1.1 % (0-4.5); HEMATOCRIT 37.6 % (32.4-45.2); HEMOGLOBIN 12.8 GM/dL (10.7-15.3); LYMPH % 29.6 % (8-40); MCHC 34.1 g/dl (32.0-36.0); MEAN CELL VOLUME 85.1 fl (80-96); MEAN PLT VOLUME 10.3 fl (7.5-11.1); NEUT % 66.9 % (42.8-82.8); PLATELET COUNT 215 10^3/uL (134-434); RBC 4.42 M/mm3 (3.60-5.2); RDW 13.2 % (11.6-15.6); WHITE BLOOD COUNT 6.4 K/mm3 (4.0-10.0)
[2021-10-19 16:09] LABS: BLOOD UREA NITROGEN 17.9 mg/dL (7-18); CALCIUM 9.9 mg/dL (8.5-10.1)
[2021-10-19 16:12] LABS: CREATININE 0.9 mg/dL (0.55-1.3)
[2021-10-19 16:14] LABS: BILIRUBIN,TOTAL 0.3 mg/dL (0.2-1); TOT PROT 7.1 g/dl (6.4-8.2)
[2021-10-19 16:39] LABS: ERYTHROCYTE SEDIMENTATION RATE 46 mm/hr (0-30)
[2021-10-19] MEDS ORDERED: CEFEPIME HCL/D5W 1 GM/50 ML BAG IVPB ONE (17:09)
[2021-10-19] MEDS ORDERED: CEFEPIME 1 GM/100 ML BAG IVPB ONE (17:29)
[2021-10-19 18:30] LABS: CALCIUM 9.4 mg/dL (8.5-10.1)
[2021-10-19 18:31] LABS: BLOOD UREA NITROGEN 18.3 mg/dL (7-18)
[2021-10-19 18:34] LABS: CREATININE 0.8 mg/dL (0.55-1.3)
[2021-10-19] MEDS ORDERED: VANCOMYCIN 1 GM in D5W (PRE-DOCKED) 1,000 MG/250 ML IVPB ONE (21:00)
[2021-10-19] MEDS ORDERED: INSULIN SLIDING SCALE (NOVOLOG) 1 VIAL SQ SCH (22:00)
[2021-10-19] MEDS ORDERED: VANCOMYCIN 1 GRAM (PRE-DOCKED) 1,000 MG/250 ML BAG IVPB ONE (22:09)
[2021-10-19] MEDS ORDERED: GABAPENTIN 300 MG CAPSULE ONE (22:09)
[2021-10-19] MEDS: GABAPENTIN 300 MG CAPSULE PO SCH (22:19)
[2021-10-19 23:30] VITALS: BMI 29.0
[2021-10-20] MEDS ORDERED: DEXTROSE 5%-WATER - 50 ML IVPB ONE ×3 (01:47→17:01)
[2021-10-20] MEDS ORDERED: PIPERACILLIN/TAZOBACTAM 3.375 GM VIAL IVPB ONE ×3 (01:47→17:01)
[2021-10-20] MEDS: PIPERACILLIN/TAZOB 3.375 GM 3.375 GM in DEXTROSE 5%-WATER - 50 ML IVPB SCH ×4 (02:17→17:05)
[2021-10-20 02:38] LABS: EPI CELLS 32 /uL (0-25.1); HYALINE CASTS 0 /uL (0-3.1); URINE APPEARANCE CLEAR; URINE BACTERIA 473 /uL (0-1359); URINE BILIRUBIN NEGATIVE (NEGATIVE); URINE COLOR YELLOW; URINE GLUCOSE (UA) 3+ (NEGATIVE); URINE KETONE NEGATIVE (NEGATIVE); URINE LEUK ESTERASE TRACE (NEGATIVE); URINE NITRITE NEGATIVE (NEGATIVE); URINE PROTEIN NEGATIVE (NEGATIVE); URINE RBC 3 /uL (0-23.9); URINE UROBILINOGEN 0.2 mg/dL (0.2-1.0); URINE WBC 31 /uL (0-25.8)
[2021-10-20] MEDS: GABAPENTIN 300 MG CAPSULE PO SCH ×3 (05:09→21:14)
[2021-10-20] MEDS: INSULIN SLIDING SCALE (NOVOLOG) 1 VIAL SQ SCH ×4 (06:15→21:14)
[2021-10-20 09:29] LABS: BASO % 0.5 % (0-2.0); HEMATOCRIT 34.6 % (32.4-45.2); HEMOGLOBIN 11.9 GM/dL (10.7-15.3); LYMPH % 28.8 % (8-40); MCH 29.1 pg (25.7-33.7); MCHC 34.5 g/dl (32.0-36.0); MEAN CELL VOLUME 84.4 fl (80-96); MEAN PLT VOLUME 10.3 fl (7.5-11.1); MONO % 7.1 % (3.8-10.2); NEUT % 62.6 % (42.8-82.8); PLATELET COUNT 186 10^3/uL (134-434); RDW 13.2 % (11.6-15.6); WHITE BLOOD COUNT 5.6 K/mm3 (4.0-10.0)
[2021-10-20] MEDS: ENOXAPARIN NA (PORCINE) 40 MG/0.4 ML DISP.SYRIN SQ SCH (09:42)
[2021-10-20 09:43] LABS: CALCIUM 9.1 mg/dL (8.5-10.1)
[2021-10-20] MEDS: FUROSEMIDE 20 MG TABLET (FP) PO SCH (09:43)
[2021-10-20 09:44] LABS: ALBUMIN 3.2 g/dl (3.4-5.0); BLOOD UREA NITROGEN 16.8 mg/dL (7-18); MAGNESIUM 1.5 mg/dL (1.8-2.4)
[2021-10-20 09:47] LABS: CREATININE 0.8 mg/dL (0.55-1.3)
[2021-10-20 09:48] LABS: BILIRUBIN,TOTAL 0.6 mg/dL (0.2-1); TOT PROT 6.1 g/dl (6.4-8.2)
[2021-10-20] MEDS ORDERED: VANCOMYCIN 1 GM in D5W (PRE-DOCKED) 1,000 MG/250 ML IVPB SCH (10:00)
[2021-10-20] MEDS: INSULIN (LEVEMIR) 100 UNITS/ML UNITS SQ SCH ×2 (11:23→21:16)
[2021-10-20] MEDS: ATORVASTATIN CA 40 MG TABLET (FP) PO SCH (21:14)
[2021-10-21] MEDS ORDERED: PIPERACILLIN/TAZOBACTAM 3.375 GM VIAL IVPB ONE ×3 (00:46→16:18)
[2021-10-21] MEDS ORDERED: DEXTROSE 5%-WATER - 50 ML IVPB ONE ×3 (00:47→16:18)
[2021-10-21] MEDS: PIPERACILLIN/TAZOB 3.375 GM 3.375 GM in DEXTROSE 5%-WATER - 50 ML IVPB SCH ×3 (02:08→17:16)
[2021-10-21] MEDS: GABAPENTIN 300 MG CAPSULE PO SCH ×3 (06:29→22:42)
[2021-10-21] MEDS: INSULIN SLIDING SCALE (NOVOLOG) 1 VIAL SQ SCH ×4 (06:30→22:46)
[2021-10-21] MEDS: INSULIN (LEVEMIR) 100 UNITS/ML UNITS SQ SCH ×2 (06:32→22:47)
[2021-10-21] MEDS: ENOXAPARIN NA (PORCINE) 40 MG/0.4 ML DISP.SYRIN SQ SCH (09:36)
[2021-10-21] MEDS: FUROSEMIDE 20 MG TABLET (FP) PO SCH (09:36)
[2021-10-21] MEDS: LISINOPRIL 10 MG TABLET PO SCH (09:38)
[2021-10-21] MEDS ORDERED: INSULIN (NOVOLOG) ASPART 100 UNITS/ML 10ML VIAL ONE (22:17)
[2021-10-21] MEDS: ATORVASTATIN CA 40 MG TABLET (FP) PO SCH (22:42)
[2021-10-22] MEDS ORDERED: PIPERACILLIN/TAZOBACTAM 3.375 GM VIAL IVPB ONE ×3 (02:34→16:46)
[2021-10-22] MEDS ORDERED: DEXTROSE 5%-WATER - 50 ML IVPB ONE ×3 (02:34→16:46)
[2021-10-22] MEDS: PIPERACILLIN/TAZOB 3.375 GM 3.375 GM in DEXTROSE 5%-WATER - 50 ML IVPB SCH ×3 (02:47→17:15)
[2021-10-22] MEDS: GABAPENTIN 300 MG CAPSULE PO SCH ×3 (05:49→22:37)
[2021-10-22] MEDS: INSULIN (LEVEMIR) 100 UNITS/ML UNITS SQ SCH ×2 (06:19→22:38)
[2021-10-22] MEDS: INSULIN SLIDING SCALE (NOVOLOG) 1 VIAL SQ SCH ×4 (06:19→22:44)
[2021-10-22 08:51] LABS: BASO % 0.6 % (0-2.0); EOS % 1.2 % (0-4.5); HEMATOCRIT 36.2 % (32.4-45.2); HEMOGLOBIN 12.5 GM/dL (10.7-15.3); LYMPH % 34.6 % (8-40); MCH 29.1 pg (25.7-33.7); MCHC 34.5 g/dl (32.0-36.0); MEAN CELL VOLUME 84.4 fl (80-96); MEAN PLT VOLUME 10.6 fl (7.5-11.1); MONO % 7.3 % (3.8-10.2); NEUT % 56.3 % (42.8-82.8); PLATELET COUNT 203 10^3/uL (134-434); RDW 13.1 % (11.6-15.6); WHITE BLOOD COUNT 6.2 K/mm3 (4.0-10.0)
[2021-10-22 09:11] LABS: CALCIUM 9.4 mg/dL (8.5-10.1)
[2021-10-22 09:15] LABS: CREATININE 0.9 mg/dL (0.55-1.3)
[2021-10-22] MEDS: ENOXAPARIN NA (PORCINE) 40 MG/0.4 ML DISP.SYRIN SQ SCH (09:15)
[2021-10-22] MEDS: LISINOPRIL 10 MG TABLET PO SCH (09:15)
[2021-10-22] MEDS ORDERED: INSULIN (NOVOLOG) ASPART 100 UNITS/ML 10ML VIAL ONE (21:44)
[2021-10-22] MEDS: ATORVASTATIN CA 40 MG TABLET (FP) PO SCH (22:40)
[2021-10-23] MEDS ORDERED: DEXTROSE 5%-WATER - 50 ML IVPB ONE ×3 (03:05→16:59)
[2021-10-23] MEDS ORDERED: PIPERACILLIN/TAZOBACTAM 3.375 GM VIAL IVPB ONE ×3 (03:05→16:58)
[2021-10-23] MEDS: PIPERACILLIN/TAZOB 3.375 GM 3.375 GM in DEXTROSE 5%-WATER - 50 ML IVPB SCH ×3 (03:10→17:02)
[2021-10-23] MEDS: GABAPENTIN 300 MG CAPSULE PO SCH ×3 (05:33→21:51)
[2021-10-23] MEDS: INSULIN SLIDING SCALE (NOVOLOG) 1 VIAL SQ SCH ×4 (06:01→21:58)
[2021-10-23] MEDS: INSULIN (LEVEMIR) 100 UNITS/ML UNITS SQ SCH ×2 (06:02→21:55)
[2021-10-23 08:45] LABS: BASO % 0.7 % (0-2.0); EOS % 1.7 % (0-4.5); HEMATOCRIT 36.2 % (32.4-45.2); HEMOGLOBIN 12.5 GM/dL (10.7-15.3); LYMPH % 42.2 % (8-40); MCH 29.4 pg (25.7-33.7); MCHC 34.6 g/dl (32.0-36.0); MEAN PLT VOLUME 10.2 fl (7.5-11.1); MONO % 7.1 % (3.8-10.2); NEUT % 48.3 % (42.8-82.8); PLATELET COUNT 193 10^3/uL (134-434); RBC 4.26 M/mm3 (3.60-5.2); RDW 13.1 % (11.6-15.6); WHITE BLOOD COUNT 6.5 K/mm3 (4.0-10.0)
[2021-10-23 09:09] LABS: CALCIUM 9.4 mg/dL (8.5-10.1)
[2021-10-23 09:10] LABS: BLOOD UREA NITROGEN 20.3 mg/dL (7-18)
[2021-10-23 09:13] LABS: CREATININE 0.8 mg/dL (0.55-1.3)
[2021-10-23] MEDS: LISINOPRIL 10 MG TABLET PO SCH (09:47)
[2021-10-23] MEDS: ENOXAPARIN NA (PORCINE) 40 MG/0.4 ML DISP.SYRIN SQ SCH ×2 (09:47→10:23)
[2021-10-23] MEDS: ATORVASTATIN CA 40 MG TABLET (FP) PO SCH (21:54)
[2021-10-24] MEDS ORDERED: PIPERACILLIN/TAZOBACTAM 3.375 GM VIAL IVPB ONE ×3 (00:24→16:20)
[2021-10-24] MEDS ORDERED: DEXTROSE 5%-WATER - 50 ML IVPB ONE ×3 (00:25→16:20)
[2021-10-24] MEDS: PIPERACILLIN/TAZOB 3.375 GM 3.375 GM in DEXTROSE 5%-WATER - 50 ML IVPB SCH ×3 (01:50→18:20)
[2021-10-24] MEDS: GABAPENTIN 300 MG CAPSULE PO SCH ×3 (06:19→21:39)
[2021-10-24] MEDS: INSULIN (LEVEMIR) 100 UNITS/ML UNITS SQ SCH ×2 (06:21→21:40)
[2021-10-24] MEDS: INSULIN SLIDING SCALE (NOVOLOG) 1 VIAL SQ SCH ×4 (06:22→21:42)
[2021-10-24 08:51] LABS: BASO % 0.8 % (0-2.0); EOS % 1.7 % (0-4.5); HEMATOCRIT 34.6 % (32.4-45.2); HEMOGLOBIN 11.8 GM/dL (10.7-15.3); LYMPH % 33.1 % (8-40); MCH 28.6 pg (25.7-33.7); MCHC 34.1 g/dl (32.0-36.0); MEAN CELL VOLUME 83.7 fl (80-96); MEAN PLT VOLUME 10.2 fl (7.5-11.1); MONO % 6.9 % (3.8-10.2); NEUT % 57.5 % (42.8-82.8); PLATELET COUNT 199 10^3/uL (134-434); RBC 4.14 M/mm3 (3.60-5.2); RDW 12.9 % (11.6-15.6)
[2021-10-24] MEDS: ENOXAPARIN NA (PORCINE) 40 MG/0.4 ML DISP.SYRIN SQ SCH (09:04)
[2021-10-24] MEDS: LISINOPRIL 10 MG TABLET PO SCH (09:09)
[2021-10-24 09:31] LABS: BLOOD UREA NITROGEN 18.3 mg/dL (7-18); CALCIUM 9.3 mg/dL (8.5-10.1); CREATININE 0.8 mg/dL (0.55-1.3)
[2021-10-24] MEDS: ATORVASTATIN CA 40 MG TABLET (FP) PO SCH (21:39)
[2021-10-25] MEDS ORDERED: PIPERACILLIN/TAZOBACTAM 3.375 GM VIAL IVPB ONE ×2 (00:21→08:49)
[2021-10-25] MEDS ORDERED: DEXTROSE 5%-WATER - 50 ML IVPB ONE ×2 (00:22→08:49)
[2021-10-25] MEDS: PIPERACILLIN/TAZOB 3.375 GM 3.375 GM in DEXTROSE 5%-WATER - 50 ML IVPB SCH ×2 (01:01→09:17)
[2021-10-25] MEDS: INSULIN (LEVEMIR) 100 UNITS/ML UNITS SQ SCH (06:07)
[2021-10-25] MEDS: GABAPENTIN 300 MG CAPSULE PO SCH ×2 (06:07→15:31)
[2021-10-25] MEDS: INSULIN SLIDING SCALE (NOVOLOG) 1 VIAL SQ SCH ×2 (06:09→11:56)
[2021-10-25 08:59] LABS: BASO % 0.6 % (0-2.0); EOS % 1.4 % (0-4.5); HEMATOCRIT 34.8 % (32.4-45.2); HEMOGLOBIN 11.7 GM/dL (10.7-15.3); LYMPH % 41.6 % (8-40); MCH 28.2 pg (25.7-33.7); MCHC 33.6 g/dl (32.0-36.0); MEAN CELL VOLUME 84.1 fl (80-96); MEAN PLT VOLUME 10.5 fl (7.5-11.1); MONO % 7.1 % (3.8-10.2); NEUT % 49.3 % (42.8-82.8); PLATELET COUNT 186 10^3/uL (134-434); RBC 4.13 M/mm3 (3.60-5.2); RDW 13.2 % (11.6-15.6); WHITE BLOOD COUNT 6.3 K/mm3 (4.0-10.0)
[2021-10-25] MEDS: ENOXAPARIN NA (PORCINE) 40 MG/0.4 ML DISP.SYRIN SQ SCH (09:17)
[2021-10-25] MEDS: LISINOPRIL 10 MG TABLET PO SCH (09:17)
[2021-10-25 09:20] LABS: BLOOD UREA NITROGEN 18.5 mg/dL (7-18)
[2021-10-25 09:22] LABS: CREATININE 0.7 mg/dL (0.55-1.3)
[2021-10-25 14:59] VITALS: BP 106/58; PULSE 83; TEMP 98.1
[2021-10-25] MEDS ORDERED: AMOX TR/POT CLAV 875MG/125MG TABLETS (FP) PO SCH (17:30)
[2021-10-25] MEDS ORDERED: PIPERACILLIN/TAZOB 3.375 GM 3.375 GM in DEXTROSE 5%-WATER - 50 ML IVPB SCH (18:00)
== END 2021-10-25 16:00 | disposition home or self-care (01) | DRG 603 ==
LOC: JER 13:28 → UNDOADMIN 17:40 → JERBED 17:40 → J7W 22:49
PROVIDERS: ADMIT Internal Medicine; ATTEND Internal Medicine
DX: L03.116 Cellulitis of left lower limb (principal); E10.621 Type 1 diabetes mellitus with foot ulcer; E10.40 Type 1 diabetes mellitus with diabetic neuropathy, unspecified; E10.51 Type 1 diabetes mellitus with diabetic peripheral angiopathy without gangrene; E10.65 Type 1 diabetes mellitus with hyperglycemia; Z79.4 Long term (current) use of insulin; I10 Essential (primary) hypertension; E78.5 Hyperlipidemia, unspecified
CPT/HCPCS: 36415; 73610-TC-LT-FY; 80048; 80053; 81003; 82962; 83036; 83735; 84100; 85025; 85651; 86140; 87040; 93005; 93010; 93922; 93925-TC; 93971-TC; 99285-25; C9803-CS; U0003; U0005

== ENCOUNTER 2022-09-07 21:10 | Emergency (ER) | payer OTHER ==
[2022-09-07 21:16] VITALS: RESP 18; BMI 26.9
[2022-09-08 00:21] LABS: BASO % 0.6 % (0-2.0); EOS % 1.6 % (0-4.5); HEMATOCRIT 36.9 % (32.4-45.2); HEMOGLOBIN 12.7 GM/dL (10.7-15.3); LYMPH % 48.6 % (8-40); MCH 29.5 pg (25.7-33.7); MCHC 34.4 g/dl (32.0-36.0); MEAN CELL VOLUME 85.8 fl (80-96); MONO % 5.8 % (3.8-10.2); NEUT % 43.4 % (42.8-82.8); PLATELET COUNT 219 10^3/uL (134-434); RBC 4.31 M/mm3 (3.60-5.2); RDW 12.4 % (11.6-15.6); WHITE BLOOD COUNT 7.2 K/mm3 (4.0-10.0)
[2022-09-08 00:41] LABS: BLOOD UREA NITROGEN 14.6 mg/dL (7-18); CALCIUM 9.6 mg/dL (8.5-10.1)
[2022-09-08 00:43] LABS: ALBUMIN 3.5 g/dl (3.4-5.0)
[2022-09-08 00:45] LABS: CREATININE 0.8 mg/dL (0.55-1.3)
[2022-09-08 00:46] LABS: BILIRUBIN,TOTAL 0.3 mg/dL (0.2-1); TOT PROT 7.2 g/dl (6.4-8.2)
[2022-09-08 00:49] LABS: N-TERMINAL BNP 75.9 pg/ml (5-125)
[2022-09-08 01:22] VITALS: BP 114/65; PULSE 90; TEMP 98.5
[2022-09-08] MEDS ORDERED: SULFAMETHOXAZOLE/TRIMETHOPRIM 800MG/160MG D.S. TABLET PO ONE (01:33)
[2022-09-08] MEDS ORDERED: SULFAMETHOXAZOLE/TRIMETHOPRIM 800MG/160MG D.S. TABLET ONE (01:48)
== END 2022-09-08 01:55 | disposition home or self-care (01) ==
LOC: JER 21:10
DX: M79.662 Pain in left lower leg (principal); E11.42 Type 2 diabetes mellitus with diabetic polyneuropathy; R22.42 Localized swelling, mass and lump, left lower limb; R06.09 Other forms of dyspnea; Z20.822 Contact with and (suspected) exposure to COVID-19
CPT/HCPCS: 0241U-QW; 36415; 71045-TC-FY; 80053; 83880; 84484; 85025; 93005; 93010; 93971-TC; 99285-25

== ENCOUNTER 2023-01-03 12:32 | Inpatient (IN) | payer OTHER ==
[2023-01-03] MEDS ORDERED: LACTATED RINGERS SOLUTION 1000 ML INFUS.BAG IV ONE (13:06)
[2023-01-03] MEDS ORDERED: morphine CARPU-JECT 4 MG/1 ML DISP.SYRIN IVPUSH ONE (13:37)
[2023-01-03] MEDS ORDERED: morphine SULFATE 4 MG/ML VIAL ONE (13:51)
[2023-01-03] MEDS ORDERED: ONDANSETRON 4 MG/2 ML VIAL ONE (13:55)
[2023-01-03] MEDS ORDERED: ONDANSETRON 4 MG/2 ML VIAL IVPUSH ONE (13:55)
[2023-01-03 13:56] LABS: BASO % 0.5 % (0-2.0); HEMATOCRIT 40.2 % (32.4-45.2); HEMOGLOBIN 13.7 GM/dL (10.7-15.3); LYMPH % 10.4 % (8-40); MEAN CELL VOLUME 85.5 fl (80-96); MEAN PLT VOLUME 11.6 fl (7.5-11.1); MONO % 1.5 % (3.8-10.2); NEUT % 87.6 % (42.8-82.8); PLATELET COUNT 262 10^3/uL (134-434); RBC 4.71 M/mm3 (3.60-5.2); RDW 13.1 % (11.6-15.6); WHITE BLOOD COUNT 8.6 K/mm3 (4.0-10.0)
[2023-01-03 14:02] LABS: INR 1.07 (0.83-1.09); PROTHROMBIN TIME (PATIENT) 12.4 SEC (9.7-13.0)
[2023-01-03 14:05] LABS: ACTIVATED PTT 26.4 SECONDS (25.2-36.5)
[2023-01-03 14:33] LABS: CHLORIDE 94 mmol/L (98-107); POTASSIUM 4.3 mmol/L (3.5-5.1); SODIUM 136 mmol/L (136-145)
[2023-01-03 14:35] LABS: CALCIUM 10.6 mg/dL (8.5-10.1)
[2023-01-03 14:36] LABS: ALBUMIN 4.1 g/dl (3.4-5.0); ANION GAP 20 MMOL/L (8-16); BLOOD UREA NITROGEN 19.9 mg/dL (7-18); CO2 23 mmol/L (21-32); GLUCOSE,RANDOM 485 mg/dL (74-106); LIPASE 104 U/L (73-393)
[2023-01-03 14:38] LABS: CREATININE 1.1 mg/dL (0.55-1.3); SGOT/AST 19 U/L (15-37); SGPT/ALT 38 U/L (13-61)
[2023-01-03 14:40] LABS: BILIRUBIN,TOTAL 0.7 mg/dL (0.2-1); TOT PROT 8.3 g/dl (6.4-8.2)
[2023-01-03 14:41] LABS: ALK PHOS 163 U/L (45-117)
[2023-01-03 14:47] LABS: LACTIC ACID 4.6 mmol/L (0.4-2.0)
[2023-01-03] MEDS ORDERED: INSULIN DRIP - PLEASE ORDER UNDER SETS NR ONE (15:26)
[2023-01-03] MEDS ORDERED: SODIUM CHLORIDE 1,000 ML with POTASSIUM CHLORIDE 10 MEQ IV STA (16:10)
[2023-01-03] MEDS ORDERED: INSULIN REGULAR HUMAN 100 UNITS/ML *VIAL SQ ONE (16:23)
[2023-01-03] MEDS ORDERED: INSULIN (NOVOLOG) ASPART 100 UNITS/ML 10ML VIAL SQ ONE (16:28)
[2023-01-03] MEDS ORDERED: POTASSIUM CHLORIDE 10 MEQ in SODIUM CHLORIDE 1,000 ML IV SCH (16:29)
[2023-01-03 16:37] LABS: POTASSIUM 3.9 mmol/L (3.5-5.1)
[2023-01-03] MEDS ORDERED: INSULIN (NOVOLOG) ASPART 100 UNITS/ML 10ML VIAL ONE (16:37)
[2023-01-03 17:14] LABS: MAGNESIUM 1.7 mg/dL (1.8-2.4)
[2023-01-03 18:49] LABS: EPI CELLS 17 /uL (0-25.1); HYALINE CASTS 0 /uL (0-3.1); PH,URINE 5.5 (5.0-8.0); URINE APPEARANCE CLEAR; URINE BACTERIA 171 /uL (0-1359); URINE BILIRUBIN NEGATIVE (NEGATIVE); URINE COLOR YELLOW; URINE GLUCOSE (UA) 3+ (NEGATIVE); URINE KETONE 3+ (NEGATIVE); URINE LEUK ESTERASE NEGATIVE (NEGATIVE); URINE NITRITE NEGATIVE (NEGATIVE); URINE PROTEIN 2+ (NEGATIVE); URINE RBC 11 /uL (0-23.9); URINE UROBILINOGEN 0.2 mg/dL (0.2-1.0); URINE WBC 25 /uL (0-25.8)
[2023-01-03] MEDS ORDERED: SODIUM CHLORIDE 0.9% 500 ML INFUS.BAG IV ONE (19:03)
[2023-01-03 19:04] LABS: VENOUS BASE EXCESS -0.9 mmol/L (-2-2); VENOUS O2 SATURATION 71.5 % (70-80); VENOUS PCO2 42.6 mmHg (38-52); VENOUS PH 7.375 (7.310-7.410)
[2023-01-03 19:14] LABS: LACTIC ACID 3.7 mmol/L (0.4-2.0)
[2023-01-03 19:32] LABS: POTASSIUM 3.7 mmol/L (3.5-5.1)
[2023-01-03 19:33] LABS: CALCIUM 9.1 mg/dL (8.5-10.1)
[2023-01-03 19:34] LABS: ALBUMIN 3.4 g/dl (3.4-5.0); BLOOD UREA NITROGEN 18.7 mg/dL (7-18)
[2023-01-03 19:37] LABS: CREATININE 1.1 mg/dL (0.55-1.3)
[2023-01-03 19:39] LABS: BILIRUBIN,TOTAL 0.3 mg/dL (0.2-1); TOT PROT 6.7 g/dl (6.4-8.2)
[2023-01-03] MEDS ORDERED: MAGNESIUM 1GM/D5W 100ML - 100 ML IVPB IVPB ONE (21:01)
[2023-01-03] MEDS ORDERED: MAGNESIUM SULF 50% (8.12 MEQ/2 ML-1 GM VIAL) IVPB ONE (21:01)
[2023-01-03] MEDS ORDERED: MAGNESIUM 1GM/D5W - 1 GM/100 ML IVPB IVPB ONE (21:09)
[2023-01-03] MEDS ORDERED: INSULIN SLIDING SCALE (NOVOLOG) 1 VIAL SQ SCH (22:00)
[2023-01-03] MEDS ORDERED: INSULIN (LEVEMIR) 100 UNITS/ML UNITS SQ SCH (22:55)
[2023-01-03] MEDS ORDERED: SODIUM CHLORIDE 1,000 ML IV SCH (23:00)
[2023-01-03] MEDS ORDERED: SODIUM CHLORIDE 1,000 ML with POTASSIUM CHLORIDE 40 MEQ IV SCH (23:00)
[2023-01-04] MEDS: CYCLOBENZAPRINE HCL 5 MG TABLET PO SCH ×2 (04:04→21:16)
[2023-01-04] MEDS: GENTAMICIN SO4 0.1% TOPICAL OINTMENT 15 GM/TUBE TUBE TP SCH ×2 (04:04→09:30)
[2023-01-04] MEDS: GABAPENTIN 300 MG CAPSULE PO SCH ×4 (04:04→21:15)
[2023-01-04] MEDS: NYSTATIN 100000 UNIT/GM TOPICAL OINTMENT 15 GM TUBE TP SCH ×2 (04:04→09:30)
[2023-01-04] MEDS: ATORVASTATIN CA 40 MG TABLET (FP) PO SCH ×2 (04:04→21:16)
[2023-01-04] MEDS: INSULIN SLIDING SCALE (NOVOLOG) 1 VIAL SQ SCH ×4 (06:38→21:29)
[2023-01-04] MEDS: INSULIN (NOVOLOG) ASPART 100 UNITS/ML 10ML VIAL SQ SCH ×3 (06:56→16:45)
[2023-01-04 07:45] LABS: HEMOGLOBIN 11.5 GM/dL (10.7-15.3); MCH 28.9 pg (25.7-33.7); MCHC 33.9 g/dl (32.0-36.0); MEAN CELL VOLUME 85.3 fl (80-96); MEAN PLT VOLUME 10.8 fl (7.5-11.1); PLATELET COUNT 252 10^3/uL (134-434); RBC 3.99 M/mm3 (3.60-5.2); RDW 13.1 % (11.6-15.6); WHITE BLOOD COUNT 10.7 K/mm3 (4.0-10.0)
[2023-01-04 08:36] LABS: POTASSIUM 3.7 mmol/L (3.5-5.1)
[2023-01-04 08:46] LABS: ALBUMIN 3.2 g/dl (3.4-5.0); BLOOD UREA NITROGEN 17.2 mg/dL (7-18); CALCIUM 9.3 mg/dL (8.5-10.1)
[2023-01-04 08:49] LABS: CREATININE 0.8 mg/dL (0.55-1.3); PHOSPHOROUS 2.2 mg/dL (2.5-4.9)
[2023-01-04 08:51] LABS: BILIRUBIN,TOTAL 0.3 mg/dL (0.2-1); TOT PROT 6.2 g/dl (6.4-8.2)
[2023-01-04] MEDS: ENOXAPARIN NA (PORCINE) 40 MG/0.4 ML DISP.SYRIN SQ SCH (09:08)
[2023-01-04 09:33] LABS: LACTIC ACID 3.1 mmol/L (0.4-2.0)
[2023-01-04] MEDS: D5-NS + 20 MEQ KCL - 20 MEQ/1,000 ML INFUS.BAG IV SCH ×2 (13:24→23:29)
[2023-01-04] MEDS ORDERED: NAPH,MB-DB/K PH,MBDB POWDER PACKET PO ONE (14:45)
[2023-01-04] MEDS ORDERED: ACETAMINOPHEN 1000 MG/100 ML BAG IVPB ONE (20:09)
[2023-01-04] MEDS ORDERED: PANTOPRAZOLE 40 MG TABLET PO ONE (20:10)
[2023-01-05] MEDS: GABAPENTIN 300 MG CAPSULE PO SCH ×3 (06:38→22:21)
[2023-01-05] MEDS: INSULIN (NOVOLOG) ASPART 100 UNITS/ML 10ML VIAL SQ SCH ×3 (06:39→16:58)
[2023-01-05] MEDS ORDERED: INSULIN (NOVOLOG) ASPART 100 UNITS/ML 10ML VIAL ONE ×2 (07:43→22:15)
[2023-01-05] MEDS: INSULIN SLIDING SCALE (NOVOLOG) 1 VIAL SQ SCH ×3 (07:45→22:21)
[2023-01-05 07:46] LABS: HEMATOCRIT 30.8 % (32.4-45.2); HEMOGLOBIN 10.6 GM/dL (10.7-15.3); MCH 29.2 pg (25.7-33.7); MCHC 34.5 g/dl (32.0-36.0); MEAN CELL VOLUME 84.5 fl (80-96); MEAN PLT VOLUME 10.2 fl (7.5-11.1); PLATELET COUNT 197 10^3/uL (134-434); RBC 3.65 M/mm3 (3.60-5.2); RDW 13.2 % (11.6-15.6); WHITE BLOOD COUNT 6.4 K/mm3 (4.0-10.0)
[2023-01-05 08:16] LABS: POTASSIUM 4.4 mmol/L (3.5-5.1)
[2023-01-05 08:19] LABS: ALBUMIN 2.6 g/dl (3.4-5.0); BLOOD UREA NITROGEN 12.3 mg/dL (7-18); MAGNESIUM 1.6 mg/dL (1.8-2.4)
[2023-01-05 08:22] LABS: CREATININE 0.8 mg/dL (0.55-1.3); PHOSPHOROUS 2.4 mg/dL (2.5-4.9)
[2023-01-05 08:23] LABS: TOT PROT 5.1 g/dl (6.4-8.2)
[2023-01-05 08:24] LABS: BILIRUBIN,TOTAL 0.2 mg/dL (0.2-1)
[2023-01-05] MEDS: GENTAMICIN SO4 0.1% TOPICAL OINTMENT 15 GM/TUBE TUBE TP SCH (09:38)
[2023-01-05] MEDS: NYSTATIN 100000 UNIT/GM TOPICAL OINTMENT 15 GM TUBE TP SCH (09:39)
[2023-01-05] MEDS: ENOXAPARIN NA (PORCINE) 40 MG/0.4 ML DISP.SYRIN SQ SCH (09:39)
[2023-01-05] MEDS ORDERED: INSULIN (LEVEMIR) 100 UNITS/ML UNITS SQ SCH ×2 (10:30→22:00)
[2023-01-05] MEDS ORDERED: INSULIN (NOVOLOG) ASPART 100 UNITS/ML 10ML VIAL SQ SCH ×2 (11:32→11:54)
[2023-01-05] MEDS ORDERED: INSULIN SLIDING SCALE (NOVOLOG) 1 VIAL SQ SCH ×2 (11:45)
[2023-01-05] MEDS ORDERED: INSULIN (NOVOLOG) ASPART 100 UNITS/ML 10ML VIAL SQ ONE (12:00)
[2023-01-05] MEDS ORDERED: MAGNESIUM 2GM/50ML STERILE WATER IVPB IVPB ONE (13:26)
[2023-01-05] MEDS ORDERED: NAPH,MB-DB/K PH,MBDB POWDER PACKET PO ONE (16:00)
[2023-01-05] MEDS: LIPASE/PROTEASE/AMYLASE 36,000 UNIT CAPSULE PO SCH (17:37)
[2023-01-05 21:41] VITALS: BMI 26.9
[2023-01-05] MEDS: CYCLOBENZAPRINE HCL 5 MG TABLET PO SCH (22:21)
[2023-01-05] MEDS: ATORVASTATIN CA 40 MG TABLET (FP) PO SCH (22:24)
[2023-01-06] MEDS ORDERED: INSULIN (LEVEMIR) 100 UNITS/ML UNITS SQ SCH ×4 (07:00→20:38)
[2023-01-06] MEDS: INSULIN (NOVOLOG) ASPART 100 UNITS/ML 10ML VIAL SQ SCH ×3 (07:06→17:33)
[2023-01-06] MEDS: GABAPENTIN 300 MG CAPSULE PO SCH ×3 (07:07→21:34)
[2023-01-06 08:14] LABS: HEMOGLOBIN 10.8 GM/dL (10.7-15.3); MCH 29.5 pg (25.7-33.7); MCHC 34.8 g/dl (32.0-36.0); MEAN CELL VOLUME 84.6 fl (80-96); MEAN PLT VOLUME 10.4 fl (7.5-11.1); PLATELET COUNT 209 10^3/uL (134-434); RBC 3.66 M/mm3 (3.60-5.2); RDW 12.9 % (11.6-15.6); WHITE BLOOD COUNT 6.3 K/mm3 (4.0-10.0)
[2023-01-06 08:35] LABS: POTASSIUM 4.2 mmol/L (3.5-5.1)
[2023-01-06 08:41] LABS: ALBUMIN 2.7 g/dl (3.4-5.0); BLOOD UREA NITROGEN 9.6 mg/dL (7-18); CALCIUM 8.4 mg/dL (8.5-10.1); MAGNESIUM 1.5 mg/dL (1.8-2.4)
[2023-01-06 08:43] LABS: CREATININE 0.7 mg/dL (0.55-1.3); PHOSPHOROUS 3.1 mg/dL (2.5-4.9)
[2023-01-06 08:45] LABS: BILIRUBIN,TOTAL 0.3 mg/dL (0.2-1); TOT PROT 5.3 g/dl (6.4-8.2)
[2023-01-06] MEDS: NYSTATIN 100000 UNIT/GM TOPICAL OINTMENT 15 GM TUBE TP SCH (09:41)
[2023-01-06] MEDS: GENTAMICIN SO4 0.1% TOPICAL OINTMENT 15 GM/TUBE TUBE TP SCH (09:41)
[2023-01-06] MEDS: ENOXAPARIN NA (PORCINE) 40 MG/0.4 ML DISP.SYRIN SQ SCH (09:41)
[2023-01-06] MEDS: LIPASE/PROTEASE/AMYLASE 36,000 UNIT CAPSULE PO SCH ×3 (09:42→17:32)
[2023-01-06] MEDS ORDERED: MAGNESIUM SULF 50% (8.12 MEQ/2 ML-1 GM VIAL) IVPB ONE (13:00)
[2023-01-06] MEDS: PATIENT'S OWN MEDICATION (NON-FORMULARY) (Ammonium Lactate Cream 1 APPLIC Tube) TP SCH ×2 (16:24→16:25)
[2023-01-06] MEDS: CYCLOBENZAPRINE HCL 5 MG TABLET PO SCH (21:33)
[2023-01-06] MEDS: ATORVASTATIN CA 40 MG TABLET (FP) PO SCH (21:34)
[2023-01-06] MEDS: INSULIN SLIDING SCALE (NOVOLOG) 1 VIAL SQ SCH (21:40)
[2023-01-07] MEDS: GABAPENTIN 300 MG CAPSULE PO SCH ×2 (06:38→13:12)
[2023-01-07] MEDS: INSULIN (NOVOLOG) ASPART 100 UNITS/ML 10ML VIAL SQ SCH ×2 (06:51→11:55)
[2023-01-07] MEDS: LIPASE/PROTEASE/AMYLASE 36,000 UNIT CAPSULE PO SCH ×2 (08:49→11:56)
[2023-01-07] MEDS: NYSTATIN 100000 UNIT/GM TOPICAL OINTMENT 15 GM TUBE TP SCH (09:00)
[2023-01-07] MEDS: GENTAMICIN SO4 0.1% TOPICAL OINTMENT 15 GM/TUBE TUBE TP SCH (09:00)
[2023-01-07] MEDS: ENOXAPARIN NA (PORCINE) 40 MG/0.4 ML DISP.SYRIN SQ SCH (09:00)
[2023-01-07 09:17] VITALS: RESP 18
[2023-01-07 14:08] VITALS: BP 126/71; PULSE 98; TEMP 99
== END 2023-01-07 14:10 | disposition home or self-care (01) | DRG 639 ==
LOC: JER 12:32 → JERBED 21:09 → J4W 23:31
PROVIDERS: ADMIT Internal Medicine; ATTEND Internal Medicine
DX: E11.10 Type 2 diabetes mellitus with ketoacidosis without coma (principal); I10 Essential (primary) hypertension; E78.5 Hyperlipidemia, unspecified; E86.0 Dehydration; E11.43 Type 2 diabetes mellitus with diabetic autonomic (poly)neuropathy
CPT/HCPCS: 36415; 71045-TC-FY; 80053; 81003; 82010; 82803; 82962; 83036; 83605; 83690; 83735; 84100; 84132; 84484; 84702; 85025; 85027; 85610; 85730; 87086; 87635; 93005; 93010; 97116-GP; 97162-GP; 99285-25

== ENCOUNTER 2023-03-30 18:30 | Inpatient (IN) | payer OTHER ==
[2023-03-30 18:38] VITALS: BMI 27.3
[2023-03-30] MEDS ORDERED: DEXAMETHASONE SOD PHOSPHATE 10 MG/1 ML VIAL IVPUSH ONE (20:18)
[2023-03-30] MEDS ORDERED: DEXAMETHASONE SOD PHOSPHATE 10 MG/1 ML VIAL ONE (20:32)
[2023-03-30 21:16] LABS: BASO % 0.5 % (0-2.0); EOS % 1.4 % (0-4.5); HEMATOCRIT 38.4 % (32.4-45.2); HEMOGLOBIN 13.3 GM/dL (10.7-15.3); LYMPH % 29.9 % (8-40); MCH 28.9 pg (25.7-33.7); MCHC 34.6 g/dl (32.0-36.0); MEAN CELL VOLUME 83.5 fl (80-96); MEAN PLT VOLUME 11.2 fl (7.5-11.1); MONO % 6.2 % (3.8-10.2); PLATELET COUNT 216 10^3/uL (134-434); RDW 12.6 % (11.6-15.6); WHITE BLOOD COUNT 8.9 K/mm3 (4.0-10.0)
[2023-03-30 21:26] LABS: INR 0.98 (0.83-1.09); PROTHROMBIN TIME (PATIENT) 11.4 SEC (9.7-13.0)
[2023-03-30 21:51] LABS: POTASSIUM 5.2 mmol/L (3.5-5.1)
[2023-03-30 21:54] LABS: ALBUMIN 3.5 g/dl (3.4-5.0); BLOOD UREA NITROGEN 36.3 mg/dL (7-18); CALCIUM 9.7 mg/dL (8.5-10.1)
[2023-03-30 21:58] LABS: CREATININE 1.8 mg/dL (0.55-1.3)
[2023-03-30 21:59] LABS: BILIRUBIN,TOTAL 0.5 mg/dL (0.2-1)
[2023-03-30] MEDS ORDERED: SODIUM CHLORIDE 1,000 ML IV STA (22:37)
[2023-03-31 06:48] LABS: HEMATOCRIT 37.3 % (32.4-45.2); HEMOGLOBIN 12.5 GM/dL (10.7-15.3); MCH 28.5 pg (25.7-33.7); MCHC 33.6 g/dl (32.0-36.0); MEAN PLT VOLUME 11.1 fl (7.5-11.1); PLATELET COUNT 215 10^3/uL (134-434); RBC 4.39 M/mm3 (3.60-5.2); RDW 12.7 % (11.6-15.6); WHITE BLOOD COUNT 8.6 K/mm3 (4.0-10.0)
[2023-03-31 07:00] LABS: POTASSIUM 5.1 mmol/L (3.5-5.1)
[2023-03-31 07:02] LABS: ALBUMIN 3.2 g/dl (3.4-5.0)
[2023-03-31 07:03] LABS: BLOOD UREA NITROGEN 34.1 mg/dL (7-18); MAGNESIUM 1.8 mg/dL (1.8-2.4)
[2023-03-31 07:05] LABS: PHOSPHOROUS 3.3 mg/dL (2.5-4.9)
[2023-03-31 07:06] LABS: CREATININE 1.1 mg/dL (0.55-1.3)
[2023-03-31 07:07] LABS: BILIRUBIN,TOTAL 0.4 mg/dL (0.2-1); TOT PROT 6.4 g/dl (6.4-8.2)
[2023-03-31] MEDS ORDERED: HEPARIN NA (PORCINE) 5,000 UNITS/ML 1ML VIAL ONE ×2 (08:13→14:14)
[2023-03-31] MEDS ORDERED: GABAPENTIN 300 MG CAPSULE ONE ×2 (08:13→14:14)
[2023-03-31] MEDS: GABAPENTIN 300 MG CAPSULE PO SCH ×3 (08:21→21:56)
[2023-03-31] MEDS: HEPARIN NA (PORCINE) 5,000 UNITS/ML 1ML VIAL SQ SCH ×3 (08:21→21:55)
[2023-03-31] MEDS: INSULIN (LEVEMIR) 100 UNITS/ML UNITS SQ SCH ×2 (10:30→21:55)
[2023-03-31] MEDS: INSULIN SLIDING SCALE (NOVOLOG) 1 VIAL SQ SCH ×4 (12:16→17:51)
[2023-03-31] MEDS: ATORVASTATIN CA 40 MG TABLET (FP) PO SCH (21:55)
[2023-03-31] MEDS: PRAMIPEXOLE DIHYDROCHLORIDE 0.25 MG TABLET PO SCH (21:58)
[2023-04-01] MEDS: HEPARIN NA (PORCINE) 5,000 UNITS/ML 1ML VIAL SQ SCH ×3 (06:19→22:01)
[2023-04-01] MEDS: GABAPENTIN 300 MG CAPSULE PO SCH ×3 (06:19→22:00)
[2023-04-01] MEDS: PRAMIPEXOLE DIHYDROCHLORIDE 0.25 MG TABLET PO SCH ×3 (06:19→22:00)
[2023-04-01] MEDS: INSULIN SLIDING SCALE (NOVOLOG) 1 VIAL SQ SCH ×3 (06:53→16:31)
[2023-04-01 08:02] LABS: BASO % 0.8 % (0-2.0); EOS % 0.2 % (0-4.5); HEMATOCRIT 35.6 % (32.4-45.2); HEMOGLOBIN 11.6 GM/dL (10.7-15.3); LYMPH % 27.7 % (8-40); MCHC 32.6 g/dl (32.0-36.0); MEAN CELL VOLUME 85.8 fl (80-96); MEAN PLT VOLUME 11.4 fl (7.5-11.1); MONO % 4.5 % (3.8-10.2); NEUT % 66.8 % (42.8-82.8); PLATELET COUNT 215 10^3/uL (134-434); RBC 4.14 M/mm3 (3.60-5.2); RDW 12.5 % (11.6-15.6); WHITE BLOOD COUNT 12.1 K/mm3 (4.0-10.0)
[2023-04-01 08:23] LABS: POTASSIUM 4.3 mmol/L (3.5-5.1)
[2023-04-01 08:26] LABS: ALBUMIN 2.9 g/dl (3.4-5.0); BLOOD UREA NITROGEN 21.8 mg/dL (7-18); CALCIUM 9.2 mg/dL (8.5-10.1)
[2023-04-01 08:29] LABS: CREATININE 0.8 mg/dL (0.55-1.3)
[2023-04-01 08:31] LABS: BILIRUBIN,TOTAL 0.4 mg/dL (0.2-1)
[2023-04-01 08:35] LABS: IRON SERUM 124 ug/dL (50-175); TOTAL IRON BINDING CAPACITY 266 ug/dL (250-450)
[2023-04-01] MEDS: INSULIN (LEVEMIR) 100 UNITS/ML UNITS SQ SCH ×2 (09:19→22:01)
[2023-04-01 16:57] LABS: EPI CELLS 20 /uL (0-25.1); HYALINE CASTS 0 /uL (0-3.1); URINE APPEARANCE CLEAR; URINE BACTERIA 482 /uL (0-1359); URINE BILIRUBIN NEGATIVE (NEGATIVE); URINE COLOR YELLOW; URINE GLUCOSE (UA) NEGATIVE (NEGATIVE); URINE KETONE NEGATIVE (NEGATIVE); URINE LEUK ESTERASE TRACE (NEGATIVE); URINE NITRITE NEGATIVE (NEGATIVE); URINE PROTEIN NEGATIVE (NEGATIVE); URINE RBC 4 /uL (0-23.9); URINE WBC 14 /uL (0-25.8)
[2023-04-01] MEDS ORDERED: INSULIN (NOVOLOG) ASPART 100 UNITS/ML 10ML VIAL ONE (17:58)
[2023-04-01] MEDS: ATORVASTATIN CA 40 MG TABLET (FP) PO SCH (22:01)
[2023-04-02] MEDS: HEPARIN NA (PORCINE) 5,000 UNITS/ML 1ML VIAL SQ SCH ×3 (05:57→22:13)
[2023-04-02] MEDS: PRAMIPEXOLE DIHYDROCHLORIDE 0.25 MG TABLET PO SCH ×3 (05:57→22:12)
[2023-04-02] MEDS: GABAPENTIN 300 MG CAPSULE PO SCH ×3 (05:57→22:12)
[2023-04-02] MEDS: INSULIN SLIDING SCALE (NOVOLOG) 1 VIAL SQ SCH ×3 (06:39→16:44)
[2023-04-02] MEDS ORDERED: SODIUM CHLORIDE 500 ML IV STA (07:20)
[2023-04-02] MEDS ORDERED: INSULIN (LEVEMIR) 100 UNITS/ML UNITS SQ SCH ×2 (10:00→12:24)
[2023-04-02] MEDS ORDERED: INSULIN (NOVOLOG) ASPART 100 UNITS/ML 10ML VIAL ONE (16:34)
[2023-04-02] MEDS: ATORVASTATIN CA 40 MG TABLET (FP) PO SCH (22:12)
[2023-04-03] MEDS: GABAPENTIN 300 MG CAPSULE PO SCH ×2 (05:39→14:55)
[2023-04-03] MEDS: PRAMIPEXOLE DIHYDROCHLORIDE 0.25 MG TABLET PO SCH ×2 (05:39→14:56)
[2023-04-03] MEDS: HEPARIN NA (PORCINE) 5,000 UNITS/ML 1ML VIAL SQ SCH ×2 (05:39→14:56)
[2023-04-03] MEDS: INSULIN SLIDING SCALE (NOVOLOG) 1 VIAL SQ SCH ×3 (06:09→16:30)
[2023-04-03] MEDS ORDERED: INSULIN (LEVEMIR) 100 UNITS/ML UNITS SQ SCH ×2 (07:00→22:00)
[2023-04-03 07:15] LABS: BASO % 0.7 % (0-2.0); EOS % 1.5 % (0-4.5); HEMATOCRIT 36.9 % (32.4-45.2); HEMOGLOBIN 12.2 GM/dL (10.7-15.3); LYMPH % 51.7 % (8-40); MCH 28.3 pg (25.7-33.7); MCHC 33.1 g/dl (32.0-36.0); MEAN CELL VOLUME 85.5 fl (80-96); MEAN PLT VOLUME 10.9 fl (7.5-11.1); MONO % 4.6 % (3.8-10.2); NEUT % 41.5 % (42.8-82.8); PLATELET COUNT 177 10^3/uL (134-434); RBC 4.32 M/mm3 (3.60-5.2); RDW 12.6 % (11.6-15.6); WHITE BLOOD COUNT 6.1 K/mm3 (4.0-10.0)
[2023-04-03 07:33] LABS: POTASSIUM 4.5 mmol/L (3.5-5.1)
[2023-04-03 07:34] LABS: CALCIUM 8.9 mg/dL (8.5-10.1)
[2023-04-03 07:35] LABS: ALBUMIN 2.8 g/dl (3.4-5.0); BLOOD UREA NITROGEN 15.9 mg/dL (7-18); MAGNESIUM 1.5 mg/dL (1.8-2.4)
[2023-04-03 07:38] LABS: CREATININE 0.8 mg/dL (0.55-1.3)
[2023-04-03 07:40] LABS: BILIRUBIN,TOTAL 0.5 mg/dL (0.2-1); TOT PROT 5.8 g/dl (6.4-8.2)
[2023-04-03 09:26] VITALS: RESP 18
[2023-04-03 09:32] VITALS: TEMP 98.1
[2023-04-03] MEDS ORDERED: MAGNESIUM OXIDE 400 MG TABLET (FP) PO ONE (10:30)
[2023-04-03 14:27] VITALS: BP 112/59; PULSE 87
== END 2023-04-03 18:30 | disposition home or self-care (01) | DRG 552 ==
LOC: JER 18:30 → OBSVTOIN 20:33 → UNDOADMOB 20:33 → JERBED 20:33 → INTOOBSV 20:33 → JERBED 03-31 01:55 → OBSVTOIN 03-31 01:55 → J7W 03-31 17:43
PROVIDERS: ADMIT Internal Medicine; ATTEND Nurse Practitioner Family
DX: M51.17 Intervertebral disc disorders with radiculopathy, lumbosacral region (principal); N17.9 Acute kidney failure, unspecified; E87.5 Hyperkalemia; G25.81 Restless legs syndrome; G47.00 Insomnia, unspecified; I10 Essential (primary) hypertension; E78.5 Hyperlipidemia, unspecified; E10.42 Type 1 diabetes mellitus with diabetic polyneuropathy; E10.65 Type 1 diabetes mellitus with hyperglycemia; M79.2 Neuralgia and neuritis, unspecified
CPT/HCPCS: 36415; 72148-TC; 76775-TC; 80053; 81003; 82607; 82962; 83036; 83540; 83550; 83735; 84100; 84439; 84443; 85025; 85027; 85610; 85730; 93005; 93010; 97116-GP; 99285-25; J1100; J1644

== ENCOUNTER 2023-07-24 20:24 | Emergency (ER) | payer OTHER ==
[2023-07-24 20:36] VITALS: BP 128/69; PULSE 110; RESP 18; TEMP 98.6; BMI 26.0
== END 2023-07-24 23:55 | disposition left against medical advice (07) ==
LOC: JER 20:24
DX: R51.9 Headache, unspecified (principal); M54.50 Low back pain, unspecified; W10.8XXA Fall (on) (from) other stairs and steps, initial encounter
CPT/HCPCS: 93005; 93010; 99284-25

== ENCOUNTER 2023-08-13 01:12 | Inpatient (IN) | payer OTHER ==
[2023-08-13 04:00] LABS: BASO % 1.1 % (0-2.0); EOS % 1.7 % (0-4.5); HEMATOCRIT 34.2 % (32.4-45.2); HEMOGLOBIN 12.1 GM/dL (10.7-15.3); LYMPH % 42.5 % (8-40); MCH 30.1 pg (25.7-33.7); MCHC 35.5 g/dl (32.0-36.0); MEAN CELL VOLUME 84.9 fl (80-96); MEAN PLT VOLUME 10.7 fl (7.5-11.1); NEUT % 47.7 % (42.8-82.8); PLATELET COUNT 202 10^3/uL (134-434); RBC 4.02 M/mm3 (3.60-5.2); RDW 13.1 % (11.6-15.6); WHITE BLOOD COUNT 6.9 K/mm3 (4.0-10.0)
[2023-08-13 04:08] LABS: INR 0.99 (0.83-1.09); PROTHROMBIN TIME (PATIENT) 11.5 SEC (9.7-13.0)
[2023-08-13 04:11] LABS: ACTIVATED PTT 27.7 SECONDS (25.2-36.5)
[2023-08-13 04:16] LABS: POTASSIUM 4.7 mmol/L (3.5-5.1)
[2023-08-13 04:18] LABS: CALCIUM 9.9 mg/dL (8.5-10.1)
[2023-08-13 04:19] LABS: ALBUMIN 3.3 g/dl (3.4-5.0); BLOOD UREA NITROGEN 34.8 mg/dL (7-18)
[2023-08-13 04:22] LABS: CREATININE 1.8 mg/dL (0.55-1.3)
[2023-08-13 04:23] LABS: BILIRUBIN,TOTAL 0.2 mg/dL (0.2-1); TOT PROT 6.3 g/dl (6.4-8.2)
[2023-08-13] MEDS: LACTATED RINGERS SOLUTION 1000 ML INFUS.BAG IV ONE (05:00)
[2023-08-13] MEDS: GABAPENTIN 300 MG CAPSULE PO SCH ×2 (07:01→15:51)
[2023-08-13] MEDS: PRAMIPEXOLE DIHYDROCHLORIDE 0.25 MG TABLET PO SCH ×2 (07:01→15:50)
[2023-08-13] MEDS: INSULIN ASPART SLIDING SCALE (NOVOLOG) 1 VIAL SQ SCH ×2 (07:02→11:44)
[2023-08-13 07:12] LABS: POTASSIUM 4.4 mmol/L (3.5-5.1)
[2023-08-13 07:15] LABS: CALCIUM 9.7 mg/dL (8.5-10.1)
[2023-08-13 07:16] LABS: MAGNESIUM 1.4 mg/dL (1.8-2.4)
[2023-08-13 07:19] LABS: CREATININE 1.6 mg/dL (0.55-1.3); PHOSPHOROUS 4.2 mg/dL (2.5-4.9)
[2023-08-13 07:20] LABS: BILIRUBIN,TOTAL 0.2 mg/dL (0.2-1)
[2023-08-13 07:21] LABS: TOT PROT 5.8 g/dl (6.4-8.2)
[2023-08-13 07:22] LABS: BASO % 0.7 % (0-2.0); EOS % 1.6 % (0-4.5); HEMOGLOBIN 11.2 GM/dL (10.7-15.3); LYMPH % 42.3 % (8-40); MCH 29.8 pg (25.7-33.7); MEAN PLT VOLUME 11.8 fl (7.5-11.1); NEUT % 49.4 % (42.8-82.8); PLATELET COUNT 183 10^3/uL (134-434); RBC 3.76 M/mm3 (3.60-5.2); WHITE BLOOD COUNT 7.1 K/mm3 (4.0-10.0)
[2023-08-13] MEDS ORDERED: MAGNESIUM SULFATE IN WATER 2 GM/50 ML IVPB IVPB ONE (08:05)
[2023-08-13] MEDS ORDERED: BUPIVACAINE HCL/PF 0.5% (5MG/ML) 10 ML VIAL ONE (08:29)
[2023-08-13] MEDS ORDERED: LIDOCAINE HCL 1%, 10 MG/ML (20ML VIAL) ONE (08:29)
[2023-08-13] MEDS ORDERED: PROPOFOL 60 ML ONE (08:35)
[2023-08-13] MEDS ORDERED: ONDANSETRON 4 MG/2 ML VIAL ONE (08:35)
[2023-08-13] MEDS ORDERED: MIDAZOLAM HCL 2 MG/2 ML SINGLE DOSE VIAL ONE (08:35)
[2023-08-13] MEDS ORDERED: FENTANYL CITRATE/PF 50 MCG/ML VIAL ONE (08:35)
[2023-08-13] MEDS ORDERED: DEXAMETHASONE SOD PHOSPHATE 4 MG/1 ML VIAL ONE (08:35)
[2023-08-13] MEDS: MAGNESIUM SULF 50% (8.12 MEQ/2 ML-1 GM VIAL) IVPB ONE (08:47)
[2023-08-13] MEDS: SODIUM CHLORIDE 1,000 ML IV SCH (08:47)
[2023-08-13] MEDS ORDERED: ONDANSETRON 4 MG/2 ML VIAL IVPUSH PRN ×2 (08:54→09:53)
[2023-08-13] MEDS ORDERED: LACTATED RINGERS SOLUTION 1,000 ML IV SCH ×2 (09:00→09:53)
[2023-08-13] MEDS: LIDOCAINE 1% P/F 10 MG/ML VIAL INF ONE (09:14)
[2023-08-13] MEDS: VANCOMYCIN 1,000 MG VIAL (RESTRICTED TO ID ONLY) IVPB ONE ×2 (09:15→09:27)
[2023-08-13] MEDS ORDERED: SODIUM CHLORIDE 1,000 ML IV SCH (09:53)
[2023-08-13] MEDS ORDERED: FUROSEMIDE 20 MG TABLET (FP) PO SCH (10:00)
[2023-08-13] MEDS ORDERED: LISINOPRIL 10 MG TABLET PO SCH (10:00)
[2023-08-13] MEDS ORDERED: INSULIN (LEVEMIR) 100 UNITS/ML UNITS SQ SCH (10:00)
[2023-08-13] MEDS: CEFTRIAXONE 2 GM in DEXTROSE 5%-WATER 100 ML IVPB SCH (15:50)
[2023-08-13] MEDS ORDERED: INSULIN (NOVOLOG) ASPART 100 UNITS/ML 10ML VIAL ONE ×2 (17:01→21:06)
[2023-08-13] MEDS: ATORVASTATIN CA 40 MG TABLET (FP) PO SCH (21:11)
[2023-08-13] MEDS ORDERED: ATORVASTATIN CA 40 MG TABLET (FP) PO SCH (22:00)
[2023-08-14] MEDS: INSULIN (LEVEMIR) 100 UNITS/ML UNITS SQ SCH (06:33)
[2023-08-14 09:43] LABS: POTASSIUM 4.5 mmol/L (3.5-5.1)
[2023-08-14 09:52] LABS: CALCIUM 9.1 mg/dL (8.5-10.1)
[2023-08-14 09:53] LABS: ALBUMIN 2.8 g/dl (3.4-5.0); BLOOD UREA NITROGEN 20.7 mg/dL (7-18)
[2023-08-14 09:55] LABS: CREATININE 0.8 mg/dL (0.55-1.3)
[2023-08-14 09:57] LABS: BILIRUBIN,TOTAL 0.4 mg/dL (0.2-1); TOT PROT 5.3 g/dl (6.4-8.2)
[2023-08-14 16:12] VITALS: BMI 27.4
[2023-08-14] MEDS ORDERED: INSULIN (NOVOLOG) ASPART 100 UNITS/ML 10ML VIAL ONE (21:26)
[2023-08-15 09:42] LABS: BASO % 0.7 % (0-2.0); EOS % 1.9 % (0-4.5); HEMATOCRIT 36.8 % (32.4-45.2); HEMOGLOBIN 12.6 GM/dL (10.7-15.3); LYMPH % 42.4 % (8-40); MCH 29.7 pg (25.7-33.7); MCHC 34.2 g/dl (32.0-36.0); MEAN CELL VOLUME 86.9 fl (80-96); MEAN PLT VOLUME 11.2 fl (7.5-11.1); MONO % 7.7 % (3.8-10.2); NEUT % 47.3 % (42.8-82.8); PLATELET COUNT 189 10^3/uL (134-434); RBC 4.24 M/mm3 (3.60-5.2); RDW 13.4 % (11.6-15.6); WHITE BLOOD COUNT 5.4 K/mm3 (4.0-10.0)
[2023-08-15 10:25] LABS: POTASSIUM 4.3 mmol/L (3.5-5.1)
[2023-08-15 10:34] LABS: BLOOD UREA NITROGEN 12.5 mg/dL (7-18); CALCIUM 9.5 mg/dL (8.5-10.1)
[2023-08-15 10:35] LABS: MAGNESIUM 1.6 mg/dL (1.8-2.4)
[2023-08-15 10:38] LABS: CREATININE 0.7 mg/dL (0.55-1.3)
[2023-08-15 10:39] LABS: BILIRUBIN,TOTAL 0.2 mg/dL (0.2-1); TOT PROT 6.1 g/dl (6.4-8.2)
[2023-08-15] MEDS: COLLAGENASE CLOSTRIDIUM HIST. 30 GRAMS TUBE TP SCH (11:03)
[2023-08-15] MEDS: INSULIN ASPART SLIDING SCALE (NOVOLOG) 1 VIAL SQ SCH (17:08)
[2023-08-15] MEDS ORDERED: INSULIN (NOVOLOG) ASPART 100 UNITS/ML 10ML VIAL ONE (21:08)
[2023-08-15] MEDS: MAGNESIUM OXIDE 400 MG TABLET (FP) PO SCH (21:39)
[2023-08-15] MEDS: INSULIN (LEVEMIR) 100 UNITS/ML UNITS SQ SCH (21:47)
[2023-08-15] MEDS ORDERED: INSULIN (LEVEMIR) 100 UNITS/ML UNITS SQ SCH (22:00)
[2023-08-16] MEDS: INSULIN (LEVEMIR) 100 UNITS/ML UNITS SQ SCH (06:02)
[2023-08-16 08:24] LABS: BASO % 0.8 % (0-2.0); EOS % 2.1 % (0-4.5); HEMATOCRIT 33.6 % (32.4-45.2); HEMOGLOBIN 11.5 GM/dL (10.7-15.3); LYMPH % 43.7 % (8-40); MCH 29.6 pg (25.7-33.7); MCHC 34.2 g/dl (32.0-36.0); MEAN CELL VOLUME 86.5 fl (80-96); MEAN PLT VOLUME 10.5 fl (7.5-11.1); NEUT % 45.4 % (42.8-82.8); PLATELET COUNT 173 10^3/uL (134-434); RBC 3.88 M/mm3 (3.60-5.2); RDW 13.2 % (11.6-15.6); WHITE BLOOD COUNT 5.5 K/mm3 (4.0-10.0)
[2023-08-16 08:51] LABS: POTASSIUM 3.9 mmol/L (3.5-5.1)
[2023-08-16 08:55] LABS: ALBUMIN 2.8 g/dl (3.4-5.0); BLOOD UREA NITROGEN 13.6 mg/dL (7-18); MAGNESIUM 1.5 mg/dL (1.8-2.4)
[2023-08-16 08:58] LABS: CREATININE 0.7 mg/dL (0.55-1.3)
[2023-08-16 08:59] LABS: TOT PROT 5.4 g/dl (6.4-8.2)
[2023-08-16 09:00] LABS: BILIRUBIN,TOTAL 0.2 mg/dL (0.2-1)
[2023-08-16] MEDS ORDERED: INSULIN (NOVOLOG) ASPART 100 UNITS/ML 10ML VIAL ONE ×2 (11:13→18:35)
[2023-08-17] MEDS ORDERED: INSULIN (NOVOLOG) ASPART 100 UNITS/ML 10ML VIAL ONE (05:20)
[2023-08-17 07:54] VITALS: BP 91/60; PULSE 82; RESP 18; TEMP 98.1
[2023-08-17 08:25] LABS: BASO % 0.6 % (0-2.0); EOS % 1.9 % (0-4.5); HEMATOCRIT 34.9 % (32.4-45.2); HEMOGLOBIN 11.6 GM/dL (10.7-15.3); LYMPH % 42.3 % (8-40); MCH 28.8 pg (25.7-33.7); MCHC 33.3 g/dl (32.0-36.0); MEAN CELL VOLUME 86.5 fl (80-96); MEAN PLT VOLUME 10.7 fl (7.5-11.1); MONO % 5.9 % (3.8-10.2); NEUT % 49.3 % (42.8-82.8); PLATELET COUNT 183 10^3/uL (134-434); RBC 4.03 M/mm3 (3.60-5.2); RDW 13.3 % (11.6-15.6); WHITE BLOOD COUNT 5.2 K/mm3 (4.0-10.0)
[2023-08-17 08:29] LABS: POTASSIUM 3.9 mmol/L (3.5-5.1)
[2023-08-17 08:37] LABS: ALBUMIN 2.7 g/dl (3.4-5.0); BLOOD UREA NITROGEN 15.4 mg/dL (7-18); CALCIUM 9.4 mg/dL (8.5-10.1)
[2023-08-17 08:38] LABS: MAGNESIUM 1.5 mg/dL (1.8-2.4)
[2023-08-17 08:40] LABS: CREATININE 0.8 mg/dL (0.55-1.3)
[2023-08-17 08:41] LABS: BILIRUBIN,TOTAL 0.2 mg/dL (0.2-1)
[2023-08-17 08:42] LABS: TOT PROT 5.5 g/dl (6.4-8.2)
[2023-08-17] MEDS: MAGNESIUM 2GM/50ML STERILE WATER IVPB IVPB ONE (10:08)
[2023-08-18] MEDS ORDERED: MAGNESIUM OXIDE 400 MG TABLET (FP) PO SCH (10:00)
== END 2023-08-17 14:57 | disposition home health service (06) | DRG 988 ==
LOC: JER 01:12 → JERBED 03:01 → OBSVTOIN 14:31 → J8W 14:57
PROVIDERS: ADMIT Internal Medicine; ATTEND Nurse Practitioner Acute Care
PROC: 0QBR3ZX Excision of Left Toe Phalanx, Percutaneous Approach, Diagnostic (ICD-10-PCS; principal; 2023-08-13 09:00)
PROC: 05HY33Z Insertion of Infusion Device into Upper Vein, Percutaneous Approach (ICD-10-PCS; 2023-08-17)
DX: E11.69 Type 2 diabetes mellitus with other specified complication (principal); M86.8X7 Other osteomyelitis, ankle and foot; N17.9 Acute kidney failure, unspecified; L97.529 Non-pressure chronic ulcer of other part of left foot with unspecified severity; E11.51 Type 2 diabetes mellitus with diabetic peripheral angiopathy without gangrene; I10 Essential (primary) hypertension; E78.5 Hyperlipidemia, unspecified; I25.10 Atherosclerotic heart disease of native coronary artery without angina pectoris; E11.65 Type 2 diabetes mellitus with hyperglycemia
CPT/HCPCS: 36415; 36569; 73630-TC-LT; 80053; 82962; 83735; 84100; 85025; 85610; 85651; 85730; 86140; 86850; 86900; 86901; 87070; 87075; 87205; 93005; 93010; 94760; 99285-25; G0378

== ENCOUNTER 2023-08-18 11:42 | Day surgery (SDC) | payer OTHER ==
[2023-08-18] MEDS: DALBAVANCIN HCL 1,500 MG in DEXTROSE 5%-WATER - 500 ML IVPB ONE (12:16)
[2023-08-18 13:01] VITALS: BP 136/71; PULSE 81; RESP 14; TEMP 97.8
== END 2023-08-18 13:02 | disposition home or self-care (01) ==
LOC: FINFUSION 11:42 → FM/S 11:43 → FINFUSION 13:02
PROVIDERS: ATTEND Internal Medicine Infectious Disease
DX: M86.9 Osteomyelitis, unspecified (principal); E11.621 Type 2 diabetes mellitus with foot ulcer; Z79.4 Long term (current) use of insulin
CPT/HCPCS: 96365; J0875

== ENCOUNTER 2023-08-25 14:39 | Day surgery (SDC) | payer OTHER ==
[2023-08-25] MEDS: DALBAVANCIN HCL 1,500 MG in DEXTROSE 5%-WATER - 500 ML IVPB ONE (15:19)
[2023-08-25 16:18] VITALS: BP 148/76; PULSE 93; RESP 15; TEMP 99.1
== END 2023-08-25 16:20 | disposition home or self-care (01) ==
LOC: FINFUSION 14:39 → FM/S 14:40 → FINFUSION 16:20
PROVIDERS: ATTEND Internal Medicine Infectious Disease
DX: M86.9 Osteomyelitis, unspecified (principal); E11.621 Type 2 diabetes mellitus with foot ulcer; Z97.4 Presence of external hearing-aid
CPT/HCPCS: 96365; J0875

== ENCOUNTER 2023-09-24 15:13 | Emergency (ER) | payer OTHER ==
[2023-09-24 15:20] VITALS: RESP 18; TEMP 98.8; BMI 26.6
[2023-09-24] MEDS: ACETAMINOPHEN 500 MG TABLET (FP) PO ONE (16:43)
[2023-09-24] MEDS ORDERED: ACETAMINOPHEN 500 MG TABLET (FP) ONE (16:44)
[2023-09-24 16:47] LABS: BASO % 0.9 % (0-2.0); HEMATOCRIT 35.2 % (32.4-45.2); HEMOGLOBIN 11.3 GM/dL (10.7-15.3); LYMPH % 36.9 % (8-40); MCH 28.5 pg (25.7-33.7); MCHC 32.2 g/dl (32.0-36.0); MEAN CELL VOLUME 88.4 fl (80-96); MEAN PLT VOLUME 10.2 fl (7.5-11.1); MONO % 7.8 % (3.8-10.2); NEUT % 51.4 % (42.8-82.8); PLATELET COUNT 164 10^3/uL (134-434); RBC 3.98 M/mm3 (3.60-5.2); RDW 12.9 % (11.6-15.6); WHITE BLOOD COUNT 5.8 K/mm3 (4.0-10.0)
[2023-09-24 17:04] LABS: POTASSIUM 4.4 mmol/L (3.5-5.1)
[2023-09-24 17:06] LABS: CALCIUM 9.2 mg/dL (8.5-10.1)
[2023-09-24 17:07] LABS: ALBUMIN 3.1 g/dl (3.4-5.0); BLOOD UREA NITROGEN 17.6 mg/dL (7-18); MAGNESIUM 1.8 mg/dL (1.8-2.4)
[2023-09-24 17:10] LABS: CREATININE 0.7 mg/dL (0.55-1.3)
[2023-09-24 17:11] LABS: BILIRUBIN,TOTAL 0.4 mg/dL (0.2-1)
[2023-09-24 17:12] LABS: TOT PROT 6.3 g/dl (6.4-8.2)
[2023-09-24 17:15] LABS: N-TERMINAL BNP 189.2 pg/ml (5-125)
[2023-09-24 21:14] VITALS: BP 148/68; PULSE 68
== END 2023-09-24 21:30 | disposition home or self-care (01) ==
LOC: JER 15:13
DX: R60.0 Localized edema (principal)
CPT/HCPCS: 36415; 71046-TC-FY; 80053; 83735; 83880; 84484; 85025; 93005; 93010; 93970-TC; 99285-25

== ENCOUNTER 2023-10-15 10:54 | Inpatient (IN) | payer OTHER ==
[2023-10-15] MEDS: SODIUM CHLORIDE 0.9% 500 ML INFUS.BAG IV ONE (13:04)
[2023-10-15] MEDS: LACTATED RINGERS SOLUTION 1000 ML INFUS.BAG IV ONE (13:42)
[2023-10-15 13:47] LABS: BASO % 0.1 % (0-2.0); EOS % 1.6 % (0-4.5); HEMATOCRIT 38.4 % (32.4-45.2); HEMOGLOBIN 12.9 GM/dL (10.7-15.3); LYMPH % 36.4 % (8-40); MCH 28.9 pg (25.7-33.7); MCHC 33.5 g/dl (32.0-36.0); MEAN CELL VOLUME 86.3 fl (80-96); MEAN PLT VOLUME 10.6 fl (7.5-11.1); MONO % 6.5 % (3.8-10.2); NEUT % 55.4 % (42.8-82.8); PLATELET COUNT 187 10^3/uL (134-434); RBC 4.45 M/mm3 (3.60-5.2); RDW 12.6 % (11.6-15.6); WHITE BLOOD COUNT 7.5 K/mm3 (4.0-10.0)
[2023-10-15 14:10] LABS: POTASSIUM 4.8 mmol/L (3.5-5.1)
[2023-10-15 14:12] LABS: CALCIUM 9.9 mg/dL (8.5-10.1)
[2023-10-15 14:13] LABS: ALBUMIN 3.8 g/dl (3.4-5.0); BLOOD UREA NITROGEN 26.6 mg/dL (7-18)
[2023-10-15 14:16] LABS: PHOSPHOROUS 3.6 mg/dL (2.5-4.9)
[2023-10-15 14:18] LABS: BILIRUBIN,TOTAL 0.4 mg/dL (0.2-1); TOT PROT 7.1 g/dl (6.4-8.2)
[2023-10-15 14:23] LABS: LACTIC ACID 3.9 mmol/L (0.4-2.0)
[2023-10-15] MEDS ORDERED: INSULIN (NOVOLOG) ASPART 100 UNITS/ML 10ML VIAL ONE (18:35)
[2023-10-15] MEDS: INSULIN ASPART SLIDING SCALE (NOVOLOG) 1 VIAL SQ SCH (18:52)
[2023-10-15] MEDS: GABAPENTIN 300 MG CAPSULE PO SCH (21:24)
[2023-10-15] MEDS: ATORVASTATIN CA 40 MG TABLET (FP) PO SCH (21:25)
[2023-10-15] MEDS: PRAMIPEXOLE DIHYDROCHLORIDE 0.25 MG TABLET PO SCH (21:25)
[2023-10-15] MEDS: INSULIN (LEVEMIR) 100 UNITS/ML UNITS SQ SCH (21:27)
[2023-10-16] MEDS: SODIUM CHLORIDE 0.9% 500 ML INFUS.BAG IV ONE (04:56)
[2023-10-16 06:26] VITALS: BMI 27.7
[2023-10-16] MEDS ORDERED: FUROSEMIDE 20 MG TABLET (FP) PO SCH (10:00)
[2023-10-16] MEDS ORDERED: LISINOPRIL 10 MG TABLET PO SCH (10:00)
[2023-10-16 11:40] LABS: PH,URINE 6.5 (5.0-8.0); URINE APPEARANCE CLEAR; URINE BILIRUBIN NEGATIVE (NEGATIVE); URINE COLOR YELLOW; URINE GLUCOSE (UA) 3+ (NEGATIVE); URINE KETONE NEGATIVE (NEGATIVE); URINE LEUK ESTERASE NEGATIVE (NEGATIVE); URINE NITRITE NEGATIVE (NEGATIVE); URINE PROTEIN NEGATIVE (NEGATIVE); URINE UROBILINOGEN 0.2 mg/dL (0.2-1.0)
[2023-10-16] MEDS: ATORVASTATIN CA 40 MG TABLET (FP) PO SCH (22:26)
[2023-10-16] MEDS: INSULIN (LEVEMIR) 100 UNITS/ML UNITS SQ SCH (22:27)
[2023-10-17 08:22] LABS: CHLORIDE 106 mmol/L (98-107); POTASSIUM 4.2 mmol/L (3.5-5.1); SODIUM 140 mmol/L (136-145)
[2023-10-17 09:07] LABS: HEMATOCRIT 34.6 % (32.4-45.2); MCH 29.4 pg (25.7-33.7); MCHC 34.8 g/dl (32.0-36.0); MEAN CELL VOLUME 84.6 fl (80-96); MEAN PLT VOLUME 11.1 fl (7.5-11.1); PLATELET COUNT 169 10^3/uL (134-434); RBC 4.09 M/mm3 (3.60-5.2); RDW 12.4 % (11.6-15.6); WHITE BLOOD COUNT 5.8 K/mm3 (4.0-10.0)
[2023-10-17 10:03] LABS: ALBUMIN 3.1 g/dl (3.4-5.0); ALK PHOS 113 U/L (45-117); AMYLASE 53 U/L (25-115); ANION GAP 6 mmol/L (4-13); BILIRUBIN,TOTAL 0.5 mg/dL (0.2-1); BLOOD UREA NITROGEN 17.3 mg/dL (7-18); CALCIUM 9.2 mg/dL (8.5-10.1); CO2 28 mmol/L (21-32); CREATININE 0.8 mg/dL (0.55-1.3); GAMMA GLUTAMYL TRANSPEPTIDASE 135 U/L (5-85); GLUCOSE,RANDOM 181 mg/dL (74-106); SGOT/AST 21 U/L (15-37); SGPT/ALT 25 U/L (13-61)
[2023-10-17] MEDS: PANTOPRAZOLE 20 MG TABLET PO SCH (10:50)
[2023-10-18 09:41] LABS: HEMATOCRIT 35.6 % (32.4-45.2); HEMOGLOBIN 12.4 GM/dL (10.7-15.3); MCH 29.4 pg (25.7-33.7); MCHC 34.8 g/dl (32.0-36.0); MEAN CELL VOLUME 84.4 fl (80-96); MEAN PLT VOLUME 10.7 fl (7.5-11.1); PLATELET COUNT 156 10^3/uL (134-434); RBC 4.22 M/mm3 (3.60-5.2); RDW 12.7 % (11.6-15.6); WHITE BLOOD COUNT 6.5 K/mm3 (4.0-10.0)
[2023-10-18 09:58] LABS: POTASSIUM 4.3 mmol/L (3.5-5.1)
[2023-10-18 10:07] LABS: CALCIUM 9.5 mg/dL (8.5-10.1)
[2023-10-18 10:08] LABS: BLOOD UREA NITROGEN 18.7 mg/dL (7-18)
[2023-10-18 10:11] LABS: CREATININE 0.8 mg/dL (0.55-1.3)
[2023-10-18 10:13] LABS: BILIRUBIN,TOTAL 0.4 mg/dL (0.2-1); TOT PROT 5.9 g/dl (6.4-8.2)
[2023-10-18] MEDS: FLUDROCORTISONE ACETATE 0.1 MG TABLET (FP) PO SCH (10:59)
[2023-10-18] MEDS: metFORMIN HCL 500 MG TABLET (FP) PO SCH (16:47)
[2023-10-18] MEDS: sitaGLIPtin PHOSPHATE 50 MG TABLET PO SCH (16:47)
[2023-10-19] MEDS: FLUDROCORTISONE ACETATE 0.1 MG TABLET (FP) PO SCH (09:22)
[2023-10-19] MEDS: QUEtiapine FUMARATE 25 MG TABLET PO SCH (21:37)
[2023-10-20 05:19] VITALS: RESP 20; TEMP 98.3
[2023-10-20] MEDS: FLUDROCORTISONE ACETATE 0.1 MG TABLET (FP) PO SCH (08:16)
[2023-10-20 10:14] VITALS: BP 126/70; PULSE 86
== END 2023-10-20 13:30 | disposition home or self-care (01) | DRG 74 ==
LOC: JER 10:54 → JERBED 15:42 → INTOOBSV 15:42 → J6S 19:12 → OBSVTOIN 10-19 09:59
PROVIDERS: ADMIT Internal Medicine; ATTEND Internal Medicine
DX: E11.43 Type 2 diabetes mellitus with diabetic autonomic (poly)neuropathy (principal); E87.0 Hyperosmolality and hypernatremia; I50.32 Chronic diastolic (congestive) heart failure; I95.1 Orthostatic hypotension; I25.10 Atherosclerotic heart disease of native coronary artery without angina pectoris; G47.00 Insomnia, unspecified; E78.5 Hyperlipidemia, unspecified; I08.1 Rheumatic disorders of both mitral and tricuspid valves; I73.9 Peripheral vascular disease, unspecified; I11.0 Hypertensive heart disease with heart failure; K76.0 Fatty (change of) liver, not elsewhere classified
CPT/HCPCS: 0241U-QW; 36415; 71045-TC-FY; 74177-TC; 74181-TC; 76705-TC; 80053; 81003; 82150; 82962; 82977; 83036; 83605; 83690; 83735; 84100; 84484; 85025; 85027; 86140; 86704; 86803; 87086; 87340; 87517; 93005; 93010; 93306-TC; 97116-GP; 97162-GP; 99285-25; G0378; G0463-25; Q9967

== ENCOUNTER 2024-05-28 13:18 | Emergency (ER) | payer OTHER ==
[2024-05-28 13:25] VITALS: BP 94/58; PULSE 94; RESP 20; TEMP 99.7; BMI 27.8
[2024-05-28] MEDS ORDERED: ONDANSETRON 4 MG/2 ML VIAL ONE (14:32)
[2024-05-28] MEDS ORDERED: MAG HYDROX/AL HYDROX/SIMETH 30 ML UNIT-DOSE CUP ONE (14:32)
[2024-05-28] MEDS: ONDANSETRON 4 MG/2 ML VIAL IVPB ONE (15:06)
[2024-05-28] MEDS: MAG HYDROX/AL HYDROX/SIMETH 30 ML UNIT-DOSE CUP PO ONE (15:08)
[2024-05-28] MEDS: SODIUM CHLORIDE 1,000 ML IV STA (15:09)
[2024-05-28 15:12] LABS: BASO % 0.8 % (0-2.0); EOS % 0.6 % (0-4.5); HEMATOCRIT 34.3 % (32.4-45.2); HEMOGLOBIN 11.4 GM/dL (10.7-15.3); LYMPH % 26.1 % (8-40); MCH 28.8 pg (25.7-33.7); MCHC 33.2 g/dl (32.0-36.0); MEAN CELL VOLUME 86.8 fl (80-96); MEAN PLT VOLUME 10.3 fl (7.5-11.1); MONO % 13.4 % (3.8-10.2); NEUT % 59.1 % (42.8-82.8); PLATELET COUNT 171 10^3/uL (134-434); RBC 3.95 M/mm3 (3.60-5.2); RDW 13.4 % (11.6-15.6)
[2024-05-28 15:39] LABS: POTASSIUM 4.5 mmol/L (3.5-5.1)
[2024-05-28 15:42] LABS: ALBUMIN 3.1 g/dl (3.4-5.0); BLOOD UREA NITROGEN 28.9 mg/dL (7-18); CALCIUM 9.5 mg/dL (8.5-10.1); MAGNESIUM 2.2 mg/dL (1.8-2.4)
[2024-05-28 15:46] LABS: BILIRUBIN,TOTAL 0.4 mg/dL (0.2-1); CREATININE 1.4 mg/dL (0.55-1.3); TOT PROT 6.5 g/dl (6.4-8.2)
[2024-05-28] MEDS ORDERED: OSELTAMIVIR PHOSPHATE 75 MG CAPSULE PO ONE (16:08)
[2024-05-28] MEDS ORDERED: OSELTAMIVIR PHOSPHATE 75 MG CAPSULE ONE (16:23)
== END 2024-05-28 17:54 | disposition home or self-care (01) ==
LOC: JER 13:18
PROC: 3E033GC Introduction of Other Therapeutic Substance into Peripheral Vein, Percutaneous Approach (ICD-10-PCS; principal; 2024-05-28)
PROC: 3E0337Z Introduction of Electrolytic and Water Balance Substance into Peripheral Vein, Percutaneous Approach (ICD-10-PCS; 2024-05-28)
DX: J10.1 Influenza due to other identified influenza virus with other respiratory manifestations (principal); R11.2 Nausea with vomiting, unspecified; R19.7 Diarrhea, unspecified; Z20.822 Contact with and (suspected) exposure to COVID-19
CPT/HCPCS: 0241U-QW; 36415; 80053; 82962; 83735; 84100; 85025; 96361; 96374; 99284-25

== ENCOUNTER 2024-07-25 14:12 | Emergency (ER) | payer OTHER ==
[2024-07-25 14:24] VITALS: BMI 25.8
[2024-07-25 15:41] LABS: BASO % 1.1 % (0-2.0); EOS % 0.8 % (0-4.5); HEMATOCRIT 37.4 % (32.4-45.2); HEMOGLOBIN 12.8 GM/dL (10.7-15.3); LYMPH % 22.8 % (8-40); MCH 28.8 pg (25.7-33.7); MCHC 34.1 g/dl (32.0-36.0); MEAN CELL VOLUME 84.4 fl (80-96); MEAN PLT VOLUME 10.8 fl (7.5-11.1); MONO % 6.9 % (3.8-10.2); NEUT % 68.4 % (42.8-82.8); PLATELET COUNT 189 10^3/uL (134-434); RBC 4.43 M/mm3 (3.60-5.2); RDW 13.2 % (11.6-15.6); WHITE BLOOD COUNT 8.2 K/mm3 (4.0-10.0)
[2024-07-25] MEDS: LACTATED RINGERS SOLUTION 1000 ML INFUS.BAG IV ONE ×2 (15:51→17:48)
[2024-07-25 16:08] LABS: ALBUMIN 3.3 g/dl (3.4-5.0); BLOOD UREA NITROGEN 30.1 mg/dL (7-18); CALCIUM 9.6 mg/dL (8.5-10.1)
[2024-07-25 16:11] LABS: CREATININE 1.8 mg/dL (0.55-1.3)
[2024-07-25 16:12] LABS: MAGNESIUM 2.1 mg/dL (1.8-2.4)
[2024-07-25 16:13] LABS: BILIRUBIN,TOTAL 0.4 mg/dL (0.2-1); TOT PROT 6.5 g/dl (6.4-8.2)
[2024-07-25 17:16] LABS: HIV INTERPRETATION NEGATIVE (NEGATIVE)
[2024-07-25] MEDS ORDERED: ACETAMINOPHEN 325 MG TABLET (FP) ONE (18:58)
[2024-07-25] MEDS: ACETAMINOPHEN 325 MG TABLET (FP) PO ONE (18:59)
[2024-07-25 19:07] VITALS: BP 155/84; PULSE 91; RESP 13; TEMP 98.2
== END 2024-07-25 19:13 | disposition home or self-care (01) ==
LOC: JER 14:12
DX: R42 Dizziness and giddiness (principal); R19.7 Diarrhea, unspecified; R07.89 Other chest pain; R53.1 Weakness; Z20.822 Contact with and (suspected) exposure to COVID-19
CPT/HCPCS: 0241U-QW; 36415; 71045-TC-FY; 80053; 82962; 83735; 84484; 85025; 86803; 86850; 86900; 86901; 87389; 93005; 93010; 99285-25

== ENCOUNTER 2024-09-25 20:41 | Emergency (ER) | payer OTHER ==
[2024-09-25 20:58] VITALS: BP 150/80; PULSE 86; RESP 18; TEMP 98.6; BMI 27.8
[2024-09-25 22:32] LABS: ABSOLUTE IMMATURE GRANULOCYTES 0.02 x10^3/uL (0.0-0.031); BASOPHILS # 0.04 x10^3/uL (0.01-0.08); EOSINOPHIL % 0.5 % (0.7-5.8); EOSINOPHILS # 0.04 x10^3/uL (0.04-0.36); HEMATOCRIT 33.8 % (34.1-44.9); HEMOGLOBIN 11.7 g/dL (11.2-15.7); MCHC 34.6 g/dl (32.2-35.5); MEAN CELL VOLUME 83.5 fl (79.4-94.8); MEAN PLT VOLUME 12.6 fl (9.4-12.3); MONOCYTE # 0.55 x10^3/uL (0.24-0.86); MONOCYTE % 7.4 % (4.7-12.5); PLATELET COUNT 230 x10^3/uL (182-369); RDW 12.1 % (12.4-16.4)
[2024-09-25 22:56] LABS: POTASSIUM 4.4 mmol/L (3.5-5.1)
[2024-09-25 22:58] LABS: ALBUMIN 2.7 g/dl (3.4-5.0); BLOOD UREA NITROGEN 16.5 mg/dL (7-18); CALCIUM 9.8 mg/dL (8.5-10.1); MAGNESIUM 1.6 mg/dL (1.8-2.4)
[2024-09-25 23:01] LABS: CREATININE 1.1 mg/dL (0.55-1.3)
[2024-09-25 23:03] LABS: BILIRUBIN,TOTAL 0.3 mg/dL (0.2-1); TOT PROT 5.8 g/dl (6.4-8.2)
[2024-09-26] MEDS ORDERED: ACETAMINOPHEN INJECTION 100 ML ONE (00:47)
[2024-09-26] MEDS ORDERED: ONDANSETRON 4 MG/2 ML VIAL ONE (00:47)
[2024-09-26] MEDS: ACETAMINOPHEN 1000 MG/100 ML BAG IVPB ONE (00:57)
[2024-09-26] MEDS: SODIUM CHLORIDE 0.9% 500 ML INFUS.BAG IV ONE (00:57)
[2024-09-26] MEDS: ONDANSETRON 4 MG/2 ML VIAL IVPUSH ONE (00:57)
[2024-09-26 01:11] LABS: EPI CELLS >36 /uL (0-25.1); HYALINE CASTS 2 /uL (0-3.1); PH,URINE 7.5 (5.0-8.0); URINE APPEARANCE CLEAR; URINE BACTERIA 937 /uL (0-1359); URINE BILIRUBIN NEGATIVE (NEGATIVE); URINE COLOR YELLOW; URINE GLUCOSE (UA) TRACE (NEGATIVE); URINE KETONE NEGATIVE (NEGATIVE); URINE LEUK ESTERASE NEGATIVE (NEGATIVE); URINE NITRITE NEGATIVE (NEGATIVE); URINE PROTEIN 4+ (NEGATIVE); URINE RBC 50 /uL (0-23.9); URINE UROBILINOGEN 0.2 mg/dL (0.2-1.0)
[2024-09-26] MEDS: MAGNESIUM SULFATE IN WATER 2 GM/50 ML IVPB IVPB ONE (01:33)
[2024-09-26] MEDS ORDERED: MAGNESIUM OXIDE 400 MG TABLET (FP) ONE (01:42)
[2024-09-26] MEDS: CEPHALEXIN MONOHYDRATE 500 MG CAPSULE (UD) PO ONE (01:44)
[2024-09-26] MEDS: MAGNESIUM OXIDE 400 MG TABLET (FP) PO ONE (01:44)
== END 2024-09-26 02:03 | disposition home or self-care (01) ==
LOC: JER 20:41
PROC: 3E033NZ Introduction of Analgesics, Hypnotics, Sedatives into Peripheral Vein, Percutaneous Approach (ICD-10-PCS; principal; 2024-09-25)
PROC: 3E033GC Introduction of Other Therapeutic Substance into Peripheral Vein, Percutaneous Approach (ICD-10-PCS; 2024-09-25)
DX: R30.0 Dysuria (principal); R19.7 Diarrhea, unspecified; R11.2 Nausea with vomiting, unspecified; R10.32 Left lower quadrant pain; R50.9 Fever, unspecified
CPT/HCPCS: 0241U-QW; 36415; 71046-TC-FY; 74177-TC; 80053; 81003; 83735; 84484; 85025; 87086; 93005; 93010; 96374; 96375; 99285-25; J0131

== ENCOUNTER 2024-10-19 19:02 | Emergency (ER) | payer OTHER ==
[2024-10-19 19:41] VITALS: TEMP 98; BMI 58.6
[2024-10-19] MEDS ORDERED: MAG HYDROX/AL HYDROX/SIMETH 30 ML UNIT-DOSE CUP ONE (20:23)
[2024-10-19] MEDS ORDERED: ACETAMINOPHEN INJECTION 100 ML ONE (20:23)
[2024-10-19] MEDS ORDERED: FAMOTIDINE 20 MG/50 ML IVPB 20 MG/50 ML MG IVPB ONE (20:24)
[2024-10-19 20:30] LABS: ABSOLUTE IMMATURE GRANULOCYTES 0.01 x10^3/uL (0.0-0.031); BASOPHILS # 0.05 x10^3/uL (0.01-0.08); EOSINOPHIL % 0.9 % (0.7-5.8); EOSINOPHILS # 0.05 x10^3/uL (0.04-0.36); HEMATOCRIT 35.6 % (34.1-44.9); HEMOGLOBIN 11.9 g/dL (11.2-15.7); MCHC 33.4 g/dl (32.2-35.5); MEAN PLT VOLUME 12.5 fl (9.4-12.3); MONOCYTE # 0.38 x10^3/uL (0.24-0.86); MONOCYTE % 6.7 % (4.7-12.5); PLATELET COUNT 261 x10^3/uL (182-369); RDW 12.6 % (12.4-16.4)
[2024-10-19] MEDS: ACETAMINOPHEN 1000 MG/100 ML BAG IVPB ONE (20:31)
[2024-10-19] MEDS: MAG HYDROX/AL HYDROX/SIMETH 30 ML UNIT-DOSE CUP PO ONE (20:31)
[2024-10-19] MEDS: SODIUM CHLORIDE 0.9% 500 ML INFUS.BAG IV ONE (20:31)
[2024-10-19] MEDS: FAMOTIDINE 20 MG/50 ML IVPB 20 MG/50 ML MG IVPB ONE (20:32)
[2024-10-19 21:16] LABS: POTASSIUM 3.8 mmol/L (3.5-5.1)
[2024-10-19 21:25] LABS: ALBUMIN 2.8 g/dl (3.4-5.0); CALCIUM 9.8 mg/dL (8.5-10.1)
[2024-10-19 21:26] LABS: BLOOD UREA NITROGEN 18.1 mg/dL (7-18)
[2024-10-19 21:27] LABS: CREATININE 1.1 mg/dL (0.55-1.3)
[2024-10-19 21:29] LABS: BILIRUBIN,TOTAL 0.3 mg/dL (0.2-1); TOT PROT 6.1 g/dl (6.4-8.2)
[2024-10-19 21:30] VITALS: BP 142/75; PULSE 88; RESP 20
== END 2024-10-19 22:21 | disposition home or self-care (01) ==
LOC: JER 19:02
PROC: 3E033GC Introduction of Other Therapeutic Substance into Peripheral Vein, Percutaneous Approach (ICD-10-PCS; principal; 2024-10-19)
PROC: 3E033NZ Introduction of Analgesics, Hypnotics, Sedatives into Peripheral Vein, Percutaneous Approach (ICD-10-PCS; 2024-10-19)
DX: R42 Dizziness and giddiness (principal); R19.7 Diarrhea, unspecified; R29.898 Other symptoms and signs involving the musculoskeletal system; R51.9 Headache, unspecified
CPT/HCPCS: 0241U-QW; 36415; 71045-TC-FY; 80053; 82962; 83690; 83735; 84484; 85025; 93005; 93010; 96365; 96375; 99285-25